=== PATIENT | male | born 1965 | race Caucasian/White ===

== ENCOUNTER → 2017-08-13 10:31 | Outpatient (CLI) | payer OTHER, SELFPAY ==
[2016-11-19 09:56] VITALS: BMI 33.7
--- NOTE | 2017-08-13 10:33 | STEWCON_ITS ---
Reason For Study: CAD, S/P Stent Stress Results Protocol: Tacho Protocol Maximum Predicted HR: 169 bpm Target HR: 144 bpm% Max imum Predicted HR: 91 % DurationHeart Rate Stage (mm:ss) (bpm) BPCom ment Baseline 54 112/74 Definity 0.6 ML Given; No Chest Pain Tacho Protocol Stage I 3:00 97 122/70No Chest Pain Tacho Protocol Stage II 3:00 12 5 138/72No Chest Pain; Mild Dyspnea Tacho Protocol Stage III 2:00 15 3 / No Chest Pain; Moderate Dyspnea Recovery 93 118/78 No Chest Pain Stress Duration: 8:00 mm:ss Maximum Stress HR: 153 bpmM ETS: 10 Baseline Echocardiogram Findings The estimated ejection fraction is 50 %. Stress Echo Wall motion Data Resting WMIntermediate WMStress WM Resting Wall Motion Wall Motion Stress Anterio-Basal: Hypokinetic. No regional wall motion Mid-Anterior : Hypokinetic. abnormalities noted. Anterior [place] : Hypokinetic. EKG Data The baseline ECG demonstrates normal sinus rhythm with at rate of _ beats per minute. The patient exercised according to the regular Tacho protocol for a total duration of 8:00. The maximum heart rate attained was 164 beats per minute. This was 97% of maximum predicted heart rate. The patient exercised into stage 3 of the Tacho protocol. During stress, there were no ST or T wave changes noted to suggest ischemia. No clinical angina was noted. No arrhythmias noted. Interpretation Summary The estimated ejection fraction is 50 %. Baseline Anterio-Basal: Hypokinetic Baseline Mid-Anterior : Hypokinetic Baseline Anterior [place] : Hypokinetic Normal adequate Tacho treadmill echocardiogram. Patient had baseline anteroapical hypokinesis which did not appreciably worsen during exercise. Negative for ischemia by EKG and echocardiographic criteria. No anginal symptoms noted. No arrhythmias noted. Below average exercise capacity for age. Appropriate blood pressure response to exercise. Final LVEF is 65%. Test terminated due to dyspnea. Ordering Physician: Colten Toth Referring Physician: Colten Toth Performed By: Maddy Quintanilla, SUREKHA, RVT
== END ==
PROVIDERS: Family Provider Family Medicine; PCP Family Medicine; Visit Provider Internal Medicine Cardiovascular Disease
DX: I25.118 Atherosclerotic heart disease of native coronary artery with other forms of angina pectoris (principal); I25.5 Ischemic cardiomyopathy; Z95.5 Presence of coronary angioplasty implant and graft
CPT/HCPCS: 93017; 93350; Q9957; A4216; C8928

== ENCOUNTER → 2017-09-12 11:42 | Outpatient (CLI) | payer OTHER, SELFPAY ==
[2016-11-19 09:56] VITALS: BMI 33.7
--- NOTE | 2017-09-12 11:42 | DT_ITS ---
This patient was seen during an EMR downtime September 08, 2017 - September 15, 2017. This patient may have a combination of paper and electronic documentation or all paper documentation. All documentation is viewable within the e-chart portion of [facility] for each patient visit.
[2017-09-13 06:11] LABS: AST(SGOT) 33 U/L (15-37); Alanine Aminotransfer ALT/SGPT 64 U/L (16-61); Alkaline Phosphatase 69 U/L (45-117); Bilirubin, Direct 0.18 mg/dL (0.00-0.30); Cholesterol 85 mg/dL (200); Globulin 2.9 g/dL (2.2-4.2); High Density Lipoprotein 27 mg/dL; Protein, Total 6.9 g/dL (6.4-8.2); Triglycerides 129 mg/dL; Very Low Density Lipoprotein 26 mg/dL (5-40)
== END ==
PROVIDERS: Nurse Practitioner Family; Family Provider Family Medicine; PCP Family Medicine; Visit Provider Family Medicine
DX: E78.5 Hyperlipidemia, unspecified (principal); E29.1 Testicular hypofunction; Z79.899 Other long term (current) drug therapy
CPT/HCPCS: 36415; 80061; 80076; 84403

== ENCOUNTER → 2017-11-21 16:31 | Outpatient (CLI) | payer OTHER, SELFPAY ==
[2016-11-19 09:56] VITALS: BMI 33.7
[2017-11-21 17:33] LABS: Absolute Lymphocyte Count 2.76 X10^3/ul (0.83-4.51); Absolute Neutrophil Count 3.1 X10^3/uL (2.0-7.7); Basophil# 0.06 X10^3/uL; Basophil% 0.8 % (0-1); Eosinophil# 0.84 X10^3/uL; Eosinophils% 11.4 % (0-5); Hematocrit 46.8 % (40-54); Lymphocyte # 2.76 X10^3/ul (4.0); Lymphocyte % 37.6 % (19-41); Mean Corp Hgb Conc 34.2 g/gl (32-36); Mean Corpuscular Volume 87.8 fL (80-94); Mean Platelet Vol. 11.1 fl (6.2-12.0); Monocyte# 0.53 X10^3/uL; Monocyte% 7.2 % (0-10); Neutrophil # 3.13 X10^3/uL (2.7-7.7); Neutrophil % 42.6 % (47-70); Platelet Count 178 K/mm3 (150-450); RBC Distribution Width CV 13.2 % (11.6-14.6); Red Blood Count 5.33 M/mm3 (4.6-6.2); White Blood Count 7.4 K/mm3 (4.4-11.0)
[2017-11-21 17:34] LABS: POSITIVE COUNT NO; POSITIVE DIFFERENTIAL NO; POSITIVE MORPHOLOGY NO
[2017-11-21 17:45] LABS: T4 Free Direct 0.98 ng/dL (0.76-1.46); Thyroid Stim Hormone (TSH) 1.72 uIU/mL (0.358-3.74)
[2017-11-21 19:08] LABS: Vitamin B12 738 pg/mL (211-911)
== END ==
PROVIDERS: Family Provider Family Medicine; PCP Family Medicine; Visit Provider Family Medicine
DX: R41.89 Other symptoms and signs involving cognitive functions and awareness (principal)
CPT/HCPCS: 36415; 82607; 84439; 84443; 85025

== ENCOUNTER 2018-02-24 08:47 | Emergency (ER) | payer OTHER, SELFPAY ==
[2016-11-19 09:56] VITALS: BMI 33.7
[2018-02-24 08:49] VITALS: BP 143/85; PULSE 90; RESP 12; TEMP 35.9; BMI 34.3
--- NOTE | 2018-02-24 09:03 | EKG12_ITS ---
Test Reason : NECKPAIN Blood Pressure : / mmHG Vent. Rate : 077 BPM Atrial Rate : 077 BPM P-R Int : 150 ms QRS Dur : 090 ms QT Int : 350 ms P-R-T Axes : 039 005 045 degrees QTc Int : 396 ms Normal sinus rhythm Septal infarct , age undetermined Abnormal ECG Confirmed by JENNI ESPINOSA, CALI ([id number]), technical writer and editor QUEENIE OZUNA ([id number]) on 02/27/2018 1:19:50 PM Referred By: REJI Confirmed By:CALI ARTEAGA MD
--- NOTE | 2018-02-24 09:12 | ED.DCSUM_ITS ---
- ER Visit Summary Date of Service: 02/24/18 Chief Complaint: Neck pain History of Present Illness: The patient is a 52 M who presents for gradually worsening left-sided neck pain. Patient began having left-sided neck pain 3 days ago, with gradual involvement of the left upper back. He is unable to move much secondary to pain. He tried Advil and BenGay without any relief. also used a massager on his back with brief relief. He is now having a headache since this morning and complaining of dry mouth since arrival in the emergency department. Patient denies any history of trauma. He was riding his bike this weekend and denies any injury. Patient cycles regularly and this was not a new activity for him. Denies any chiropractic manipulation. he denies chest pain, shortness of breath. No worsening of the pain with deep breathing. No fever, abdominal pain, nausea or vomiting. Patient has significant cardiac history, hypertension and hyperlipidemia. Patient is not a smoker. Physical Examination: Vital signs: afebrile, hemodynamically stable, no hypoxia on room air General: well nourished, well developed, in no distress, laying right lateral recumbent and holding very still Skin: warm, dry, no rash, no pallor HEENT: normocephalic and atraumatic; PERRL, EOMI, moist mucous membranes Cardiovascular: regular rate and rhythm without murmurs, no peripheral edema, 2+ pulses all distal extremities Neck and Back: No midline tenderness, deformities or step-offs. Tenderness to the paraspinal musculature of the left neck and thoracic back. No tenderness along the trapezius. No rash. Limited range of motion of the neck secondary to pain. Respiratory: No increased work of breathing, lungs are clear to auscultation bilaterally, no rales, rhonchi or wheezing Abdominal: Abdomen is soft, nontender with normoactive bowel sounds, no guarding or rebound, no masses MSK: Moves all extremities, no deformities, normal strength Neuro: Awake and alert, oriented ?4. No facial droop, sensation and motor function intact and symmetric Test Results: Abnormal Lab Results 02/24/18 02/24/18 09:15 09:15 WBC 10.3 RBC 5.74 Hgb 17.8 H Hct 53.1 MCV 92.5 MCH 31.0 MCHC 33.5 RDW 14.2 RDW Differential 47.8 H Plt Count 144 L MPV 9.9 Immature Gran % (Auto) 0.600 Neut % (Auto) 61.1 Lymph % (Auto) 21.1 Long % (Auto) 7.2 Eos % (Auto) 9.7 H Baso % (Auto) 0.3 Absolute Neuts (auto) 6.3 Absolute Lymphs (auto) 2.18 Total Counted Not Reportable Sodium 141 Potassium 4.2 Chloride 106 Carbon Dioxide 27.0 Anion Gap 8 BUN 13 Creatinine 1.14 Estim Creat Clear Calc 84.14 Est GFR (MDRD) Af Amer 87 Est GFR (MDRD) Non-Af 72 BUN/Creatinine Ratio 11.4 Glucose 100 Calcium 8.5 Troponin I 0.034 Clinical Impression(s) from Imaging Studies Chest X-Ray 02/24/18 09:27 IMPRESSION: 1. Subsegmental atelectasis in the right lung base and right middle lobe. 2. No other additional findings when compared to 01/15/2017. COMMENT: High-resolution CT chest will be more helpful for screening due to smoking history. Electronically Signed: Mark Anthony Bowen MD at 10:01 EST , Service support , Medications Given Discontinued Medications Ketorolac Tromethamine (Toradol) 30 mg IV X1 ONE Stop: 02/24/18 09:07 Last Admin: 02/24/18 09:48 Dose: 30 mg Orphenadrine Citrate (Norflex) 60 mg IV X1 ONE Stop: 02/24/18 09:07 Last Admin: 02/24/18 09:48 Dose: 60 mg Emergency Department Course and Treatment: Patient presents complaining of gradually worsening left-sided neck and upper back pain, with pain reproducible on palpation of the paraspinal musculature. Patient was given Toradol and Norflex for symptomatic relief. He does have a significant cardiac history, and because he is having left-sided symptoms, EKG and lab work was performed to rule out any cardiac involvement. Troponin was within normal limits. EKG showed a sinus rhythm with no ST changes, consistent with prior EKGs. Chest x-ray showed no infiltrates and no widened mediastinum. Possibility of dissection was considered, however patient's symptoms have been present for several days now, pain is reproducible with palpation, and he has had mild improvement with medication and massage. Thus it is highly unlikely this would be aortic/carotid or vertebral dissection and no further imaging was performed. Patient did mention during workup that he is having a decreased appetite for several days, and we discussed that he should follow-up with his primary care doctor about this if it continues. Patient's evaluation workup is most consistent with a cervical radiculopathy resulting in associated referred muscle pain. Patient was given a prescription for prednisone and flexeril. Patient also given prescription for ibuprofen to use for pain. He does state he is on pain medications for a low back injury and he will continue his pain medications as prescribed by his pain management doctor. Patient had some improvement of his discomfort with the medications in the emergency department. He was discharged home with a ride and given strict return precautions. Treatment Plan: [] Disposition: [] Impression: left cervical radiculopathy, cervical and thoracic muscle spasms This note was generated with [employer] dictation software. It may contain incorrect words, spelling, and punctuation that were not noted in review of the chart prior to signing ED Disposition - Plan for ED Patient: Disposition: Home or Assisted Living Chief Complaint: Other, Pain/Inj Instructions: ED Spasm Neck No Injury, ED Cervical Radiculopathy Prescriptions: RX: Ibuprofen 600 mg PO 4X/DAY PRN PRN #20 tab PRN Reason: Pain RX: Prednisone 10 mg PO UD #33 tab Cyclobenzaprine [Flexeril] 10 mg PO TID PRN #20 tab PRN Reason: Muscle Spasm Referrals: Oneal Parker MD [Primary Care Provider] - 1 Week if not improving Additional Instructions: Your evaluation today is most consistent with muscle spasms, likely due to an irritated nerve in your neck. You may use the prednisone taper to help with inflammation. The cyclobenzaprine is for muscle spasm. You may use the ibuprofen for pain as well. Please return to the emergency department if you develop any new or concerning symptoms, such as chest pain, shortness of breath, fever, abdominal pain, or any other change in symptoms that concerns you. Up with your family doctor if you continue to have neck pain.
[2018-02-24 09:15] VITALS: O2SAT 97
--- NOTE | 2018-02-24 09:27 | RAD_ITS ---
STUDY: X-RAY CHEST REASON FOR EXAM: Male, 52 years old. Chest pain x3 days. Neck and back pain. Smoker. TECHNIQUE: PA and lateral views. COMPARISON: 01/15/2017. FINDINGS: Subsegmental atelectases in the right lung base and right middle lobe. No confluent infiltrates. No suspicious pulmonary nodules. There is no demonstrated pleural abnormality. Normal size heart. Normal mediastinum and amy. Normal visualized pulmonary arteries. Normal visualized aortic arch and descending thoracic aorta. Normal visualized thoracic spine. Normal visualized ribs, clavicles, and shoulders. There is no demonstrated abnormality of the visualized soft tissue structures of the upper abdomen. RAD/Chest PA and Lateral IMPRESSION: 1. Subsegmental atelectasis in the right lung base and right middle lobe. 2. No other additional findings when compared to 01/15/2017. COMMENT: High-resolution CT chest will be more helpful for screening due to smoking history. Electronically Signed: Mark Anthony Bowen MD at 10:01 EST , Service support ,
[2018-02-24 09:34] LABS: Absolute Lymphocyte Count 2.18 X10^3/ul (0.83-4.51); Absolute Neutrophil Count 6.3 X10^3/uL (2.0-7.7); Basophil# 0.03 X10^3/uL; Basophil% 0.3 % (0-1); Eosinophils% 9.7 % (0-5); Hematocrit 53.1 % (40-54); Hemoglobin 17.8 g/dl (13.0-16.5); Lymphocyte # 2.18 X10^3/ul (4.0); Lymphocyte % 21.1 % (19-41); Mean Corp Hgb Conc 33.5 g/gl (32-36); Mean Corpuscular Volume 92.5 fL (80-94); Mean Platelet Vol. 9.9 fl (6.2-12.0); Monocyte# 0.74 X10^3/uL; Monocyte% 7.2 % (0-10); Neutrophil # 6.31 X10^3/uL (2.7-7.7); Neutrophil % 61.1 % (47-70); Platelet Count 144 K/mm3 (150-450); RBC Distribution Width CV 14.2 % (11.6-14.6); RBC Distribution Width SD 47.8 fl (35.1-43.9); Red Blood Count 5.74 M/mm3 (4.6-6.2); White Blood Count 10.3 K/mm3 (4.4-11.0)
[2018-02-24 09:39] LABS: POSITIVE COUNT NO; POSITIVE DIFFERENTIAL NO; POSITIVE MORPHOLOGY NO
[2018-02-24 09:47] LABS: Anion Gap 8 (5-15); BUN 13 mg/dL (7-18); BUN/Creat Ratio 11.4 RATIO (10-20); Calcium,Total 8.5 mg/dL (8.5-10.1); Chloride 106 mmol/L (98-107); Creatinine, Serum 1.14 mg/dL (0.70-1.30); EST Glomerular Filtration Rate 72 mL/min (>60); Est Glom Filt Rate - Afr Amer 87 mL/min (>60); Estimated Creatinine Clearance 84.14 ml/min; Glucose 100 mg/dL (74-106); Potassium 4.2 mmol/L (3.5-5.1); Sodium Level 141 mmol/L (136-145)
[2018-02-24] MEDS: Ketorolac 15 MG/ML Vial 30 MG IV (09:48)
[2018-02-24] MEDS: Orphenadrine 60 MG/2 ML Ampul IV (09:48)
--- NOTE | 2018-02-24 10:18 | ED.DEP ---
ED Disposition - Plan for ED Patient: Disposition: Home or Assisted Living Chief Complaint: Other, Pain/Inj Instructions: ED Spasm Neck No Injury, ED Cervical Radiculopathy Prescriptions: Ibuprofen 600 mg PO 4X/DAY PRN PRN #20 tab PRN Reason: Pain Prednisone 10 mg PO UD #33 tab Cyclobenzaprine [Flexeril] 10 mg PO TID PRN #20 tab PRN Reason: Muscle Spasm Referrals: Oneal Parker MD [Primary Care Provider] - 1 Week if not improving Additional Instructions: Your evaluation today is most consistent with muscle spasms, likely due to an irritated nerve in your neck. You may use the prednisone taper to help with inflammation. The cyclobenzaprine is for muscle spasm. You may use the ibuprofen for pain as well. Please return to the emergency department if you develop any new or concerning symptoms, such as chest pain, shortness of breath, fever, abdominal pain, or any other change in symptoms that concerns you. Up with your family doctor if you continue to have neck pain.
[2018-02-24 10:31] VITALS: BP 143/74; PULSE 90; RESP 20; O2SAT 96
== END 2018-02-24 10:32 | disposition home or self-care (01) ==
PROVIDERS: Emergency Provider Emergency Medicine; Family Provider Family Medicine; PCP Family Medicine
DX: M54.12 Radiculopathy, cervical region (principal); M62.838 Other muscle spasm; I10 Essential (primary) hypertension; E78.5 Hyperlipidemia, unspecified
CPT/HCPCS: 71046; 80048; 84484; 85025; 93005; 99284; A4216

== ENCOUNTER → 2018-03-27 11:13 | Outpatient (CLI) | payer OTHER, SELFPAY ==
[2016-11-19 09:56] VITALS: BMI 33.7
--- NOTE | 2018-03-27 11:25 | RAD_ITS ---
STUDY: X-RAY - CERVICAL SPINE REASON FOR EXAM: Male, 52 years old. Left-sided neck pain with radiation to the left arm. TECHNIQUE: 5 view(s) of the cervical spine were obtained including oblique views. COMPARISON: None FINDINGS: Normal anterior atlantoaxial articulation. Normal odontoid process. There is straightening of the normal cervical lordosis. There is multi-level endplate spondylosis. Normal disc space heights. Normal visualized intervertebral neuroforamina. There are atherosclerotic vascular calcifications of the carotid arteries. RAD/Cerv Spine 4 or 5 Views IMPRESSION: Straightening of the normal cervical lordosis. Multilevel spondylosis. Electronically Signed: Simón Wynn MD at 12:30 EST Tel [phone], Service support ,
== END ==
PROVIDERS: Family Provider Family Medicine; PCP Family Medicine; Referring Provider Chiropractor; Visit Provider Chiropractor
DX: M54.12 Radiculopathy, cervical region (principal)
CPT/HCPCS: 72050

== ENCOUNTER 2018-04-08 18:59 | Emergency (ER) | payer OTHER, SELFPAY ==
[2016-11-19 09:56] VITALS: BMI 33.7
[2018-04-08 19:00] VITALS: BP 174/98; PULSE 121; RESP 14; TEMP 36.4; O2SAT 100; BMI 29.1
--- NOTE | 2018-04-08 19:07 | EKG12_ITS ---
Test Reason : CP Blood Pressure : / mmHG Vent. Rate : 087 BPM Atrial Rate : 087 BPM P-R Int : 138 ms QRS Dur : 092 ms QT Int : 330 ms P-R-T Axes : 031 009 062 degrees QTc Int : 397 ms Normal sinus rhythm with sinus arrhythmia Septal infarct , age undetermined Abnormal ECG Confirmed by SHELL ESPINOSA, ELDON ([id number]), editorial specialist QUEENIE OZUNA ([id number]) on 04/10/2018 2:27:10 PM Referred By: BRET Confirmed By:ELDON GOFF MD
--- NOTE | 2018-04-08 19:12 | RAD_ITS ---
STUDY: X-RAY CHEST REASON FOR EXAM: Male, 52 years old. Chest pain. TECHNIQUE: Single AP portable view of the chest. COMPARISON: PA and lateral chest x-ray February 24, 2018. FINDINGS: The lungs are clear and expanded. There is no demonstrated pleural abnormality. Normal size heart. Normal mediastinum and amy. Normal visualized pulmonary arteries. Normal visualized aortic arch and descending thoracic aorta. There are stable multilevel degenerative changes of the visualized thoracic spine. Normal visualized ribs, clavicles, and shoulders. There is no demonstrated abnormality of the visualized soft tissue structures of the upper abdomen. RAD/Chest 1 View (Portable) IMPRESSION: No acute cardiopulmonary disease. Electronically Signed: Shady Zhu MD at 19:28 EST , Service support ,
[2018-04-08 19:39] LABS: Absolute Lymphocyte Count 2.93 X10^3/ul (0.83-4.51); Absolute Neutrophil Count 6.2 X10^3/uL (2.0-7.7); Basophil# 0.04 X10^3/uL; Basophil% 0.4 % (0-1); Eosinophil# 0.53 X10^3/uL; Eosinophils% 5.1 % (0-5); Hematocrit 52.5 % (40-54); Lymphocyte # 2.93 X10^3/ul (4.0); Lymphocyte % 28.1 % (19-41); Mean Corp Hgb Conc 35.4 g/gl (32-36); Mean Corpuscular Hgb 30.7 pg (27.0-32.0); Mean Corpuscular Volume 86.8 fL (80-94); Mean Platelet Vol. 9.9 fl (6.2-12.0); Monocyte# 0.69 X10^3/uL; Monocyte% 6.6 % (0-10); Neutrophil # 6.17 X10^3/uL (2.7-7.7); Neutrophil % 59.1 % (47-70); Platelet Count 205 K/mm3 (150-450); RBC Distribution Width CV 13.5 % (11.6-14.6); RBC Distribution Width SD 43.1 fl (35.1-43.9); Red Blood Count 6.05 M/mm3 (4.6-6.2); White Blood Count 10.4 K/mm3 (4.4-11.0)
[2018-04-08 19:40] LABS: Hemoglobin 18.6 g/dl (13.0-16.5); POSITIVE COUNT NO; POSITIVE DIFFERENTIAL NO; POSITIVE MORPHOLOGY NO
--- NOTE | 2018-04-08 19:42 | ED.RN ---
DR QUEEN NOTIFIED OF HGB RESULTS
[2018-04-08 19:49] LABS: Anion Gap 9 (5-15); BUN 12 mg/dL (7-18); BUN/Creat Ratio 10.9 RATIO (10-20); Chloride 104 mmol/L (98-107); EST Glomerular Filtration Rate 75 mL/min (>60); Est Glom Filt Rate - Afr Amer 91 mL/min (>60); Glucose 115 mg/dL (74-106); Potassium 3.7 mmol/L (3.5-5.1); Sodium Level 140 mmol/L (136-145)
[2018-04-08 20:55] VITALS: BP 154/109; PULSE 88; RESP 29; O2SAT 94
[2018-04-08 21:45] VITALS: BP 149/98; PULSE 81; RESP 18; O2SAT 95
--- NOTE | 2018-04-08 21:54 | ED.DCSUM_ITS ---
- ER Visit Summary Date of Service: 04/08/18 Chief Complaint: Palpitations History of Present Illness: The patient is a 52 M he started having palpitations around 3:00 this afternoon. He denies chest pain. He states his Fitbit watch showed him a heart rate ranging between 90-120. He has a history of prior coronary disease and MO. Following his cardiac intervention he reported did have an episode of either A. fib or SVT. Physical Examination: Vital signs in triage include a blood pressure 174/98 with a heart rate of 121. Head and neck examination unremarkable. Heart is regular rate and rhythm at the time of my exam. Lung sounds are clear. Abdomen is soft nontender. Lower external examination was no calf tenderness or edema. Test Results: Portable chest x-ray is unremarkable. EKG is sinus 87 with no sign of acute ischemia. CBC reveals a normal white count with a hemoglobin concentrated at 18.6. Chemistry studies unremarkable. Troponin 0.065. On recent admission troponin baseline was 0.08. 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 We did reveal his prior cardiac workup. I spoke with Dr. Holt, on-call for Dr. Toth. Patient will be given a 48-hour Holter monitor will follow up in the cardiology office. Treatment Plan: [] Disposition: Discharge Impression: Palpitations This note was generated with [employer] dictation software. It may contain incorrect words, spelling, and punctuation that were not noted in review of the chart prior to signing ED Disposition - Plan for ED Patient: Disposition: Home or Assisted Living Chief Complaint: Chest Pain Instructions: ED Palpitations Referrals: Colten Toth MD [STAFF PHYSICIAN] - As soon as possible
[2018-04-08 22:03] VITALS: BP 138/86; PULSE 77; RESP 14; O2SAT 98
== END 2018-04-08 22:07 | disposition home or self-care (01) ==
PROVIDERS: Emergency Provider Emergency Medicine; Family Provider Family Medicine; PCP Family Medicine
DX: R00.2 Palpitations (principal); I25.10 Atherosclerotic heart disease of native coronary artery without angina pectoris; I25.2 Old myocardial infarction; Z87.891 Personal history of nicotine dependence
CPT/HCPCS: 71045; 80048; 84484; 85025; 93005; 99284; A4216

== ENCOUNTER → 2018-04-08 21:48 | Outpatient (CLI) | payer OTHER, SELFPAY ==
[2016-11-19 09:56] VITALS: BMI 33.7
[2018-04-08 19:00] VITALS: BMI 29.1
== END ==
PROVIDERS: Family Provider Family Medicine; PCP Family Medicine; Referring Provider Internal Medicine Cardiovascular Disease; Visit Provider Internal Medicine Cardiovascular Disease
DX: R00.2 Palpitations (principal)
CPT/HCPCS: 93225; 93226

== ENCOUNTER → 2018-06-03 12:33 | Outpatient (CLI) | payer OTHER, SELFPAY ==
[2016-11-19 09:56] VITALS: BMI 33.7
[2018-04-20 09:51] VITALS: BMI 34.3
--- NOTE | 2018-06-03 12:36 | STEWCON_ITS ---
Reason For Study: CAD/ASHD Stress Results Protocol: Tacho Protocol Maximum Predicted HR: 169 bpm Target HR: 144 bpm % Maximum Predicted HR: 92 % DurationHeart Rate Stage (mm:ss) (bpm) BP Comment BASELINE 54 148/94 1 CC DEFINITY STAGE 1 3:00 107 180/98 STAGE 2 3:00 133 220/106SLIGHT SOB STAGE 3 1:00 155 / 1CC DEFINITY RECOVERY 83 150/82 2CC DEFINITY Stress Duration: 7:00 mm:ss Maximum Stress HR: 155 bpm Baseline Echocardiogram Findings The estimated ejection fraction is 50 %. Stress Echo Wall motion Data Resting WM Intermediate WM Stress WM Resting Wall Motion Wall Motion Stress Mid-Anterior : Mildly No additional regional wall hypokinetic. motion abnormalities over Mid-anteroseptal : Mildly baseline. hypokinetic. EKG Data The baseline ECG displays normal sinus rhythm. The patient exercised according to the regular Tacho protocol for a total duration of 7:00. The maximum heart rate attained was 166 beats per minute. This was 98% of maximum predicted heart rate. The patient exercised into stage 3 of the Tacho protocol. During stress, there were no ST or T wave changes noted to suggest ischemia. No clinical angina was noted. Doppler Measurements & Calculations TR max kenia: 261.8 cm/sec TR max P.4 mmHg Interpretation Summary The estimated ejection fraction is 50 %. Normal, adequate, treadmill echocardiogram. Negative for ischemia by EKG and echocardiographic criteria. No anginal symptoms noted. No arrhythmias noted. Hypertensive blood pressure response to exercise. Below average exercise capacity for age. Patient had baseline anteroseptal hypokinesis from previous known anterior wall myocardial infarction. All other regions contracted normally at peak exercise. Final LVEF of 65%. No complications. Decreased sensitivity due to poor echo windows requiring Definity enhancement. The study was technically difficult. Contrast injection was performed. Ordering Physician: Colten Toth MD Referring Physician: Colten Toth Performed By: Marina Sue RDCS
== END ==
PROVIDERS: Family Provider Family Medicine; PCP Family Medicine; Referring Provider Internal Medicine Cardiovascular Disease; Visit Provider Internal Medicine Cardiovascular Disease
DX: I25.10 Atherosclerotic heart disease of native coronary artery without angina pectoris (principal)
CPT/HCPCS: 93017; 93350; Q9957; A4216; C8928

== ENCOUNTER → 2018-10-09 15:23 | Outpatient (CLI) | payer OTHER, SELFPAY ==
[2016-11-19 09:56] VITALS: BMI 33.7
[2018-04-20 09:51] VITALS: BMI 34.3
[2018-10-09 17:09] LABS: Absolute Lymphocyte Count 2.38 X10^3/ul (0.83-4.51); Absolute Neutrophil Count 6.3 X10^3/uL (2.0-7.7); Basophil# 0.04 X10^3/uL; Basophil% 0.4 % (0-1); Eosinophil# 0.38 X10^3/uL; Eosinophils% 3.9 % (0-5); Hematocrit 53.7 % (40-54); Lymphocyte # 2.38 X10^3/ul (4.0); Lymphocyte % 24.3 % (19-41); Mean Corp Hgb Conc 34.6 g/gl (32-36); Mean Corpuscular Hgb 29.8 pg (27.0-32.0); Mean Corpuscular Volume 85.9 fL (80-94); Mean Platelet Vol. 11.6 fl (6.2-12.0); Monocyte# 0.66 X10^3/uL; Monocyte% 6.7 % (0-10); Neutrophil # 6.29 X10^3/uL (2.7-7.7); Neutrophil % 64.4 % (47-70); Platelet Count 217 K/mm3 (150-450); RBC Distribution Width CV 13.7 % (11.6-14.6); RBC Distribution Width SD 43.3 fl (35.1-43.9); Red Blood Count 6.25 M/mm3 (4.6-6.2); White Blood Count 9.8 K/mm3 (4.4-11.0)
[2018-10-09 17:17] LABS: Hemoglobin 18.6 g/dl (13.0-16.5); POSITIVE COUNT NO; POSITIVE DIFFERENTIAL NO; POSITIVE MORPHOLOGY NO
[2018-10-09 17:31] LABS: Anion Gap 5 (5-15); BUN 15 mg/dL (7-18); BUN/Creat Ratio 13.8 RATIO (10-20); Calcium,Total 9.2 mg/dL (8.5-10.1); Chloride 106 mmol/L (98-107); Creatinine, Serum 1.09 mg/dL (0.70-1.30); EST Glomerular Filtration Rate 75 mL/min (>60); Est Glom Filt Rate - Afr Amer 91 mL/min (>60); Follicle Stimulating Hormone < 0.2 mIU/mL; Glucose 96 mg/dL (74-106); Luteinizing Hormone < 0.2 mIU/mL; PSA,Total - Annual Screen 1.23 ng/mL (0.00-4.00); Potassium 3.9 mmol/L (3.5-5.1); Sodium Level 137 mmol/L (136-145); Thyroid Stim Hormone (TSH) 1.16 uIU/mL (0.358-3.74)
== END ==
PROVIDERS: Family Provider Family Medicine; PCP Family Medicine; Visit Provider Family Medicine
DX: E29.1 Testicular hypofunction (principal); I48.91 Unspecified atrial fibrillation
CPT/HCPCS: 36415; 80048; 83001; 83002; 84153; 84403; 84443; 85025; G0103

== ENCOUNTER → 2018-11-09 14:46 | Outpatient (CLI) | payer OTHER, SELFPAY ==
[2016-11-19 09:56] VITALS: BMI 33.7
[2018-10-26 15:08] VITALS: BMI 33.9
--- NOTE | 2018-11-09 14:50 | ECHOCS_ITS ---
Reason For Study: Chest Pain Procedure This was a 2D Doppler, Color Flow transthoracic echocardiogram. Contrast injection was performed. Exam performed in department. Left Ventricle Mild concentric left ventricular hypertrophy. Mildly dilated left ventricle. The estimated ejection fraction is 55 %. Stage 1 diastolic dysfunction. Mid-anteroseptal : Mildly hypokinetic. Anterior [place] : Mildly hypokinetic. Inferior [place] : Mildly hypokinetic. Right Ventricle Normal size and thickness. Normal systolic function. Atria Normal left atrium. Normal right atrium. Normal atrial septum. Bubble contrast study negative for right to left interatrial shunt. Mitral Valve The mitral valve is structurally normal. No prolapse or stenosis seen. Trivial mitral valve insufficiency. Tricuspid Valve Normal tricuspid valve. Trivial tricuspid valve insufficiency. Right ventricular systolic pressure estimated to be 27 mmHg. Aortic Valve Trisinus/trileaflet aortic valve. Pulmonic Valve Normal pulmonic valve. Great Vessels Normal aortic root. Normal arch. Normal inferior vena cava. Inferior vena cava collapse with sniff. Pericardium/Pleural No pericardial effusion. Medication Performed a rapid injection of agitated mix of 9 cc saline and 1cc air to assess for atrial septal defect. Diluted definity 4ml given slow IV push to enhance endocardial definition. MMode/2D Measurements & Calculations LVIDd: 5.3 cm IVSd: 1.4 cm Ao root diam: 3.2 cm LVIDs: 4.0 cm LVPWd: 1.3 cm FS: 25.6 % LAV(MOD-bp): 53.5 ml LVAd ap4: 34.4 cm2 SV(MOD-sp4): 61.4 ml LAV(MOD-bp) Indexed: 22.9 ml/m2 EDV(MOD-sp4): 124.7 ml LAV(MOD-sp2): 55.5 ml EDV(sp4-el): 127.9 ml LAV(MOD-sp4): 50.8 ml LVAs ap4: 23.8 cm2 ESV(MOD-sp4): 63.3 ml ESV(sp4-el): 65.0 ml EF(MOD-sp4): 49.2 % EF(sp4-el): 49.2 % SV(sp4-el): 62.9 ml LA A4 area: 18.0 cm2 LA dimension(2D): 3.8 cm RA A4 area: 13.4 cm2 Doppler Measurements & Calculations MV E max singh: 59.9 cm/sec Lat Peak E' Singh: 5.3 cm/sec Med Peak E' Singh: 5.3 cm/sec MV A max singh: 85.7 cm/sec E/E' lat: 11.3 E/E' med: 11.3 MV E/A: 0.70 Ao V2 max: 134.8 cm/sec LV V1 max: 104.8 cm/sec TR max singh: 230.7 cm/sec Ao max P.3 mmHg LV V1 max P.4 mmHg TR max P.3 mmHg Ao V2 mean: 94.4 cm/sec Ao mean P.9 mmHg Ao V2 VTI: 25.9 cm Interpretation Summary Mild concentric left ventricular hypertrophy. The estimated ejection fraction is 55 %. Stage 1 diastolic dysfunction. Bubble contrast study negative for right to left interatrial shunt. Trivial mitral valve insufficiency. Trivial tricuspid valve insufficiency. Right ventricular systolic pressure estimated to be 27 mmHg. Compared to echo report dated 03/12/2017, no appreciable changes noted. The study was technically difficult. Contrast injection was performed. Ordering Physician: Colten Toth Referring Physician: Oneal Parker Performed By: Maddy Quintanilla, SUREKHA, RVT
== END ==
PROVIDERS: Family Provider Family Medicine; PCP Family Medicine; Referring Provider Internal Medicine Cardiovascular Disease; Visit Provider Internal Medicine Cardiovascular Disease
DX: R07.9 Chest pain, unspecified (principal); I25.118 Atherosclerotic heart disease of native coronary artery with other forms of angina pectoris; E78.5 Hyperlipidemia, unspecified; I25.5 Ischemic cardiomyopathy; Z95.5 Presence of coronary angioplasty implant and graft
CPT/HCPCS: 93306; Q9957; A4216; C8929

== ENCOUNTER → 2018-11-26 16:10 | Outpatient (CLI) | payer OTHER, SELFPAY ==
[2016-11-19 09:56] VITALS: BMI 33.7
[2018-10-26 15:08] VITALS: BMI 33.9
[2018-11-26 17:14] LABS: Absolute Lymphocyte Count 2.38 X10^3/uL (0.83-4.51); Absolute Neutrophil Count 5.2 X10^3/uL (2.0-7.7); Basophil# 0.06 X10^3/uL; Basophil% 0.7 % (0-1); Eosinophil# 0.31 X10^3/uL; Eosinophils% 3.6 % (0-5); Hematocrit 51.6 % (40-54); Hemoglobin 17.5 g/dL (13.0-16.5); Lymphocyte # 2.38 X10^3/ul (4.0); Lymphocyte % 27.4 % (19-41); Mean Corp Hgb Conc 33.9 g/dL (32-36); Mean Corpuscular Hgb 30.2 pg (27.0-32.0); Mean Platelet Vol. 10.5 fl (6.2-12.0); Monocyte# 0.63 X10^3/uL; Monocyte% 7.2 % (0-10); NRBC Flagged by Analyzer 0 % (0-5); Neutrophil # 5.24 X10^3/uL (2.7-7.7); Neutrophil % 60.3 % (47-70); Platelet Count 184 K/mm3 (150-450); RBC Distribution Width SD 42.2 fl (35.1-43.9); White Blood Count 8.7 K/mm3 (4.4-11.0)
== END ==
PROVIDERS: Family Provider Family Medicine; PCP Family Medicine; Visit Provider Family Medicine
DX: D75.1 Secondary polycythemia (principal); E29.1 Testicular hypofunction
CPT/HCPCS: 36415; 84403; 85025

== ENCOUNTER → 2019-02-12 12:13 | Outpatient (CLI) | payer OTHER, SELFPAY ==
[2016-11-19 09:56] VITALS: BMI 33.7
[2019-02-02 15:47] VITALS: BMI 33.9
--- NOTE | 2019-02-12 13:03 | CDU_ITS ---
Reason For Study: VERTIGO Rt. Velocities/BP Lt. Velocities/BP Prox CCA 73.8/19.0 cm/sec. Prox CCA 106.3/30.2 cm/sec. Mid CCA 80.3/24.3 cm/sec. Mid CCA 86.7/27.7 cm/sec. Dist CCA 79.0/24.3 cm/sec. Dist CCA 83.0/29.0 cm/sec. Prox ICA 48.4/18.1 cm/sec. Prox ICA 50.6/19.9 cm/sec. Mid ICA 99.4/15.8 cm/sec. Mid ICA 44.5/22.3 cm/sec. Dist ICA 83.4/36.7 cm/sec. Dist ICA 65.6/29.0 cm/sec. Rt. ICA/CCA = 99.4/80.3=1.2. Lt. ICA/CCA = 65.6/86.7=0.8. Prox ECA 94.7/12.5 cm/sec. Prox ECA 86.7/13.0 cm/sec. Rt. Vert. 40.2/14.6 cm/sec. Lt. Vert. 49.3/19.7 cm/sec. Right Extracranial There is intimal thickening but no significant atherosclerotic plaque noted in the right common carotid artery. There is intimal thickening but no significant atherosclerotic plaque noted in the right internal carotid artery. There is heterogeneous, irregular atherosclerotic plaque noted in the right external carotid artery. Antegrade flow is noted in the right vertebral artery. There is heterogeneous, irregular atherosclerotic plaque noted in the right bulb. Left Extracranial There is no significant atherosclerotic plaque noted in the left common carotid artery. There is heterogeneous, irregular atherosclerotic plaque noted in the left internal carotid artery. There is no significant atherosclerotic plaque noted in the left external carotid artery. Antegrade flow is noted in the left vertebral artery. There is heterogeneous, irregular atherosclerotic plaque noted in the left bulb. Procedure Carotid Duplex [id number]. The exam was diagnostic. Exam performed in department. Interpretation Summary Mild (<50%) stenosis right extracranial internal carotid. Mild (<50%) stenosis left extracranial internal carotid. Flow within the vertebral arteries is antegrade bilaterally. Ordering Physician: Colten Toth Referring Physician: Oneal Parker Performed By: Nguyen Davis RDCS, RVT
[2019-02-12 13:48] LABS: Absolute Lymphocyte Count 2.61 X10^3/uL (0.83-4.51); Basophil# 0.08 X10^3/uL; Basophil% 0.8 % (0-1); Eosinophil# 0.53 X10^3/uL; Eosinophils% 5.3 % (0-5); Hematocrit 46.9 % (40-54); Hemoglobin 16.3 g/dL (13.0-16.5); Lymphocyte # 2.61 X10^3/ul (4.0); Mean Corp Hgb Conc 34.8 g/dL (32-36); Mean Corpuscular Hgb 30.5 pg (27.0-32.0); Mean Corpuscular Volume 87.7 fL (80-94); Mean Platelet Vol. 10.1 fl (6.2-12.0); Monocyte# 0.73 X10^3/uL; Monocyte% 7.3 % (0-10); NRBC Flagged by Analyzer 0 % (0-5); Neutrophil # 6.02 X10^3/uL (2.7-7.7); Neutrophil % 59.9 % (47-70); Platelet Count 232 K/mm3 (150-450); RBC Distribution Width CV 13.1 % (11.6-14.6); RBC Distribution Width SD 41.7 fl (35.1-43.9); Red Blood Count 5.35 M/mm3 (4.6-6.2)
[2019-02-12 14:19] LABS: Anion Gap 8 (5-15); BUN 14 mg/dL (7-18); BUN/Creat Ratio 11.3 RATIO (10-20); Calcium,Total 9.4 mg/dL (8.5-10.1); Chloride 106 mmol/L (98-107); Creatinine, Serum 1.24 mg/dL (0.70-1.30); EST Glomerular Filtration Rate 65 mL/min (>60); Est Glom Filt Rate - Afr Amer 79 mL/min (>60); Glucose 105 mg/dL (74-106); Potassium 4.1 mmol/L (3.5-5.1); Sodium Level 142 mmol/L (136-145)
[2019-02-12 15:40] LABS: Prothrombin Time (Protime)PT. 12.6 SECONDS (11.7-14.9)
== END ==
PROVIDERS: Family Provider Family Medicine; PCP Family Medicine; Referring Provider Internal Medicine Cardiovascular Disease; Visit Provider Internal Medicine Cardiovascular Disease
DX: R51 Headache (principal); R42 Dizziness and giddiness; I25.118 Atherosclerotic heart disease of native coronary artery with other forms of angina pectoris
CPT/HCPCS: 36415; 80048; 85025; 85610; 93880

== ENCOUNTER 2019-02-18 06:43 | Day surgery (SDC) | payer OTHER, SELFPAY ==
[2016-11-19 09:56] VITALS: BMI 33.7
[2019-02-02 15:47] VITALS: BMI 33.9
--- NOTE | 2019-02-12 12:20 | RAD_ITS ---
STUDY: X-RAY CHEST REASON FOR EXAM: Male, 53 years old. Chest pain, stent TECHNIQUE: PA and lateral views of the chest. COMPARISON: April 08, 2018 chest x-ray FINDINGS: The lungs are clear and expanded. There is no demonstrated pleural abnormality. Normal size heart. Normal mediastinum and amy. Normal visualized pulmonary arteries. Normal visualized aortic arch and descending thoracic aorta. There are diffuse degenerative changes of the visualized thoracic spine. Normal visualized ribs, clavicles, and shoulders. There is no demonstrated abnormality of the visualized soft tissue structures of the upper abdomen. RAD/Chest PA and Lateral IMPRESSION: Degenerative changes, as described above. No demonstrated acute cardiopulmonary process. Electronically Signed: Jenni Kovacs MD at 17:18 EST Tel , Service support ,
[2019-02-18] VITALS (21 sets, daily range): BP systolic 118–188; BP diastolic 64–107; PULSE 67–100; RESP 12–20; TEMP 36.6–36.8; O2SAT 90–98; BMI 34.2
[2019-02-18 09:20] LABS: ACT Activated Clotting Time 180 sec (74-137)
--- NOTE | 2019-02-18 09:34 | CL.I_ITS ---
Patient Name: TOMMY FLOR Study Date: 02/18/2019 Performing: Colten Toth MD Ht: 72.05 inches 183 cm : 1965 Wt: 249.12 lbs 113 kg Age: 53 Gender: male BSA: 2.34 Amended PROCEDURE(S) PERFORMED CP09-GNB/COR/LV UJ67-VKG W OR WO PTCA, SINGLE CORONARY ARTERY CLINICAL PROFILE AND CO-MORBIDITIES Indications: New Onset Angina <= 2 months, Worsening Angina, Stable Known CAD, LV Dysfunction Heart Failure: NYHA Class: 1, Newly Diagnosed: No, Heart Failure Type: Systolic Stress/Imaging Date: 06/03/2018 Stress Echocardiogram: Negative Angina Classification Anginal Classification w/in 2 Weeks: CCS IV Comorbidities/Risk Factors: Hypertension Dyslipidemia Prior PCI CONCLUSIONS Segmented LV systolic dysfunction- Moderate Successful PTCA/JANKI MID LAD with a 3.0 x 24 Promus Synergy overlapping previously placed stents, post dilated througout with a 3.0 x 12 NC balloon; 75%-->0%, no dissection. Pt had similar CP during sten t deployment, but of less intensity as he was having at home. Noelle wire technique needed down LAD i n order to pass stents and NC balloons. No encroachment of ostium of DIAG#1. Frailty score: Vulnera ble RECOMMENDATIONS Referred for immediate PCI Highly recommend quitting all tobacco products Follow up with primary third rail installer Risk factor modification ASA Indefinitley Plavix for at least 12 months Routine post interventional care Refer for Outpatient Cardiac Rehab Manual sheath removal per protocol Follow up with Dr. Toth Successful Mynx Control closure of RFA. DESCRIPTION OF PROCEDURE The patient arrived to the procedure lab. The risks and benefits of the procedure as well as a full d escription of our services here and lack of surgical backup were fully explained to the patient and/o r their significant other prior to the catheterization. The Timeout was completed, verifying the daniel ect patient and procedure. The patient's procedural site was prepped and draped in the usual fashion. Local anesthetic was given subcutaneously to right groin region with Lidocaine 2%. Using a modified Seldinger technique, arterial access was obtained via the right femoral artery, a 4Fr sheath was inse rted. Left Coronary Artery selective angiography was performed in multiple views using a 4 Fr. JL5 c atheter. Right Coronary Artery selective angiography was then performed in multiple views using a 4 F r. 3DRC catheter. Left Ventriculography was performed in BEYER projection using a 4 Fr. Pigtail cathete r. LV to AO pullback pressures were then recordedThe images were reviewed and options discussed. A decision was then made to proceed with an Intervention, IVUS or other adjunct procedure. Arterial sheath was exchanged for a 6 Fr Sheath. EBU 3.75 Guide catheter was inserted and engaged into the LCA. BMW (1) Guide wire was advanced to the LAD. BMW (2) Guide wire was advanced to the 1st Diagonal. Emerge 2 x 12 Balloon catheter was advanced across lesion in the LAD, mid. PTCA balloon in flated at 8 atms for 15 secs. PTCA balloon inflated at 8 atms for 8 secs. Angiogram performed post ba lloon dilatation. 3.0 x 24 Synergy Drug Eluting stent was inserted. Drug Eluting stent was removed in tact, failed to cross lesion 3 x 8 NC Emerge Balloon catheter was advanced across lesion in the LAD, mid. PTCA balloon inflated at 12 atms for 9 secs. PTCA balloon inflated at 12 atms for 8 secs. 3.0 x 24 Synergy Drug Eluting stent was advanced across the lesion in the LAD, mid. Drug Eluting stent was removed intact, failed to cross lesion BMW (2) Guide wire was repositioned to the LAD 3.0 x 24 Synerg y Drug Eluting stent was advanced across the lesion in the LAD, mid. Angiogram performed pre stent deployment. Angiogram performed post stent deployment. BMW (2) Guide wire was inserted as a noelle wire 3.0 x 12 NC Emerge Balloon catheter was inserted post stent. The arterial sheath was pu lled and a Mynx closure device was deployed for hemostasis CORONARY ANGIOGRAPHY DOMINANCE: Right Dominant LEFT HEART ASSESSMENT Left Ventricular Ejection Fraction: by LV Gram 45 % Depressed Left Ventricular systolic function LVEDP: 5 mmHg Normal Left Ventricular End Diastolic Pressure Anterior Hypokinesis - Moderate LEFT MAIN: Angiographically normal LEFT ANTERIOR DESCENDING ARTERY: PROX LAD: Previously placed stent is patent MID LAD: Previously placed stent is patent, 75 % Stenosis DIAGONAL 2: Ostial - 50 % Stenosis CIRCUMFLEX ARTERY: Mild luminal irregularities less than 30% OM 1: Ostial - Moderate luminal irregularities up to 50% RIGHT CORONARY ARTERY: MID RCA: Moderate luminal irregularities up to 50% DISTAL RCA: Mild luminal irregularities less than 30% INTERVENTION INFORMATION LESION SITE: LAD (Mid) Lesion Complexity: High/C, lesion at bifurcation: No, thrombus present: No, lesion length: 24 mm, cul prit lesion: Yes Pre Stenosis: 75 % Pre intervention TORIN flow: 3 Post Stenosis: 0 % Post intervention TORIN flow: 3 Lesion Devices: Mina .014 BMW [place] Straight 190cm Medtronic 6 Fr EBU3.75 100cm Guide Catheter Mina .014 BMW [place] Straight 190cm Gaston Sci EMERGE MR 2.00x12 BALLOON Gaston Sci Synergy MR JANKI 3.00x24 Gaston Sci NC EMERGE MR 3.00x08 BALLOON Gaston Sci NC EMERGE MR 3.00x12 BALLOON COMPLICATIONS No Complications PROCEDURE MEDICATIONS Versed 1 mg IV Fentanyl 25 mcg IV Oxygen: 2 L/min via nasal cannula Baby Aspirin (81mg) 1 Tabs PO @ 02/18/2019 08:00:27 Heparin 6000 unit(s) IV 02/18/2019 08:39:38 Nitro 200 mcg IC 02/18/2019 08:41:13 Plavix 75 mg PO 02/18/2019 08:00:16 IV Bolus: .9 NaCl 500 ml total 02/18/2019 09:04:06 IV Fluids: .9 NaCl increased to W/O ml/hr 02/18/2019 08:41:02 IV Fluids: .9 NaCl decreased to 150 ml/hr 02/18/2019 09:04:13 SUMMARY OF HEMODYNAMIC DATA Time AIR REST ECG 07:21:15 AO 130/87 (104) SA 08:25:52 LV 144/-21, 4 08:33:46 LV 145/-23, 4 08:33:52 LVp 143/-27, 2 08:33:57 AOp 128/79 (98) 08:34:02 RM AIR REST 09:25:29 Signed By Colten Toth MD On 03/23/2019 12:51:45 PM Signed By Colten Toth MD On 02/18/2019 09:34:08 Colten Toth MD
[2019-02-18] MEDS: 0.9% Normal Saline 1,000 ML 150 ML IV (11:08)
[2019-02-18] MEDS: diazePAM 5 MG Tablet PO (11:09)
--- NOTE | 2019-02-18 13:21 | PCM.HP.BLA ---
Problem List (1) Chest pain Status: Acute (2) Supraventricular tachycardia Status: Chronic (3) History of coronary artery stent placement Status: Chronic Comment: 11/19/2016: [id number] LAD w/ 3.0 x 12 mm Promus Synergy JANKI and JANKI-Mid LAD 3.0 x 12 mm Promus Synergy and POBA-D2. 02/18/19:Segmented LV systolic dysfunction- Moderate Successful PTCA/JANKI MID LAD with a 3.0 x 24 Promus Synergy overlapping previously placed stents, post dilated througout with a 3.0 x 12 NC balloon; 75%-->0%, no dissection. Pt had similar CP during stent deployment, but of less intensity as he was having at home. Kevin wire technique needed down LAD in order to pass stents and NC balloons. No encroachment of ostium of DIAG#1. (4) Atherosclerotic heart disease of [place] coronary artery with other forms of angina pectoris Status: Chronic Comment: FSB-ATX-Ldes LAD w/ 3.0 x 12 mm Promus Synergy JANKI and JANKI-Mid LAD 3.0 x 12 mm Promus Synergy and POBA-D2 11/19/2016 (5) Dyslipidemia Status: Chronic (6) Ischemic cardiomyopathy Status: Resolved History and Physical Date of Admission: 02/18/19 [place] [address] OFFICE VISIT Date of Service: 02/02/19 MR#: [id number] Acct: [id number] Name: TOMMY FLOR Rep #: [id number] : 1965 Provider: Colten Toth MD Age/Sex: 53/M Location: [facility] Status: Signed HPI HPI History of Present Illness Details: Details: HPI Chief Complaint: Routine f/u coronary artery disease Details: TOMMY FLOR, is a 53 M who presents to the office today for a cardiovascular follow-up. He does have a history of coronary artery disease with an acute anterior wall myocardial infarction in November 2016. He underwent angioplasty and stenting of his LAD, ans diagonal #2. Ejection fraction at that time was noted to be around 40% and he was placed on an intra-aortic balloon pump. His left circumflex and right coronary arteries had minimal obstructive disease. Ejection fraction had improved in March 2017 to 50-55%. Patient completed cardiac rehab and is now here in follow-up. Initially he had discontinued his beta-anika due to fatigue and depression, and discontinued his Lipitor out of concern for his memory issues. Patient then was somewhat depressed and started Lyrica and when these did not improve his overall symptoms he discontinued exercising altogether. He is in the process of declaring bankruptcy due to his missed time at work and financial challenges. Patient recently resumed exercising, and reports that his mental and physical health have markedly improved. The patient then developed palpitations precipitating a visit to the emergency room around April 2018. At that time he underwent a 48-hour Holter monitor which demonstrated normal sinus rhythm and sinus tachycardia with rare PACs and PVCs. Patient restart his Toprol-XL 25 mg p.o. daily, and his symptoms have resolved. He is now back on his Lipitor and exercising without any difficulty with minimal side effect. Patient underwent repeat stress testing on 06/03/2018 which showed no overt ischemia over and above his baseline anterior hypokinesis as a result of his previous myocardial infarction. No repeat catheterization was performed or recommended. He is now here in follow-up per Patient is under a significant amount of stress, as his company has declared bankruptcy recently. Patient continues to complain of occasional substernal chest pain although it is better than her last visit. He did not have any chest pain during his stress test either. In addition he complains of very difficult time sleeping at night mostly due to his back pain and status post 2 back surgeries. He wakes up about 15 times per night, and it is rare he can get more than 2 hours of sleep consecutively. He has been tested for sleep apnea in the past which is been negative. He has reduced his metoprolol to 12.5 mg p.o. twice daily. Patient is completely exhausted by the end of his workday. He reports that his exercise capacity has significantly gone down since before his myocardial infarction although it is remained stable over the last couple of years. His most recent echocardiogram was performed on 03/13/2017 which showed an EF around 50 to 55%, which was an improvement over his baseline of 40%, normal RVSP of 25 mmHg. In our office today's blood pressure is 124/70, pulse is 68 and regular. Physical exam is as below. His lipids as of 09/12/17 show an LDL of 32 and HDL 27. 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 [Ecotrin] 81 mg PO DAILY@0800 tab 11/23/16 [Rx Confirmed 02/02/19] Cetirizine HCl [Zyrtec] 10 mg PO DAILY PRN 01/15/17 [History Confirmed 02/02/19] DiphenhydrAMINE [Benadryl] 25 mg PO TID PRN PRN 01/15/17 [History Confirmed 02/02/19] nitroglycerin 0.4 mg sublingual tablet 0.4 mg SUBLINGUAL Q5-15M PRN #25 tab 10/17/17 [Rx Confirmed 02/02/19] ibuprofen 600 mg tablet 600 mg PO TID PRN #21 tab 06/01/18 [Rx Confirmed 02/02/19] omeprazole 20 mg capsule,delayed release 20 mg PO DAILY #30 cap 09/08/18 [Rx Confirmed 02/02/19] coenzyme Q10 100 mg capsule 100 mg PO DAILY 10/26/18 [History Confirmed 02/02/19] arginine (L-arginine) 500 mg capsule 500 mg PO DAILY cap 02/02/19 [History Confirmed 02/02/19] atorvastatin 80 mg tablet 80 mg PO QHS #30 tab 02/02/19 [Rx Confirmed 02/02/19] bupropion HCl XL 300 mg 24 hr tablet, extended release 300 mg PO QAM 02/02/19 [History Confirmed 02/02/19] cholecalciferol (vitamin D3) 5,000 unit capsule 5,000 unit PO DAILY 02/02/19 [History Confirmed 02/02/19] clopidogrel 75 mg tablet 75 mg PO DAILY #30 tab 02/02/19 [Rx Confirmed 02/02/19] hydrocodone bitartrate ER 40 mg tablet,crush resist,extended rel. 24hr 40 mg PO BID tab 02/02/19 [History Confirmed 02/02/19] PFSH Medical History Supraventricular tachycardia (Chronic) Atherosclerotic heart disease of [place] coronary artery with other forms of angina pectoris (Chronic) Obesity (BMI 30.0-34.9) (Chronic) Dyslipidemia (Chronic) Ischemic cardiomyopathy (Resolved) Acute ST elevation myocardial infarction (STEMI) (Resolved) Chronic back pain (Chronic) Testosterone deficiency (Chronic) Pericarditis (Resolved) Surgical History (Updated 01/26/19 @ 12:24 by Crystal Reynolds) History of coronary artery stent placement (Chronic 11/19/16) H/O nasal polypectomy (Chronic) History of back surgery (Chronic) History of left heart catheterization (Chronic 12/16/16) Family History Mother Cancer Father Cancer Social History (Updated 02/02/19 @ 16:23 by Colten Toth MD) Smoking Status: Former smoker alcohol intake: current alcohol intake frequency: a few times a month caffeine: Yes Type: coffee Number of servings: 3 ROS Const Const: Positive for fatigue and other (Occasional CP, just mild. Had stress in May and echo in November. Tired often); negative for weakness, body ache, fever(s), headache(s), chills, frequent falls, night sweats, daytime sleepiness, difficulty sleeping, excessive sweating, weight gain, weight loss, increased appetite, poor appetite or anorexia Eyes Eyes: Negative for blind spots, loss of peripheral vision, transient loss of vision, blurry vision, change in vision, double vision, floaters, tunnel vision or other ENT ENT: Negative for headache(s), dizziness, hearing loss, tinnitus, Nosebleed/epistaxis, balance problems, post nasal drip, lip swelling, tongue swelling, bleeding gums, hoarseness, neck pain, dry mouth or other Cardio Chest Pain: Yes (not as bad as last time he had office visit (stress neg)) Frequency: other (a few times a week, vague) Character: sharp, dull Onset: at rest Location: mid sternal Duration: minutes (a couple minutes or less) Exacerbation: other (spontaneous) Relieving: other (spontaneous) Palpitations: No Edema: None Muscle aches with walking: None Resp Respiratory: Negative for SOB with activity, SOB at rest, SOB orthopnea\SOB lying down, Cough, Coughing up blood/hemoptysis, chest congestion, pain on inspiration, snoring, stridor, wheezing, crackles, paroxysmal nocturnal dyspnea or other GI GI: Negative nausea, vomiting, heartburn, constipation, belching, bloating, cramping, vomiting blood/hematemesis, bright, red blood in stools, black,tarry stools, loose stools, Difficulty Swallowing or other : Negative for hematuria, frequent nighttime urination/ nocturia, erectile dysfunction or abnormal vaginal bleeding Musc Musc: Negative for muscle aches/ myalgia, muscle weakness, joint pain or balance problems Skin Skin: Negative redness, non-healing lesions, rash, unusual bruising, skin ulcer, wounds, jaundice or other Neuro Neuro: Negative for dizziness, lightheadedness, near syncope, syncope, orthostatic symptoms, frequent falls, headache(s), weakness, confusion, memory loss, restless legs, blurry vision, double vision, vertigo, seizures, lack of coordination or other Gee Hematologic/Lymphatic: Negative for easy bleeding, easy bruising, enlarged lymph nodes or other Endo Endo: Positive for fatigue; negative for cold intolerance, heat intolerance, excessive sweating, flushing, increased thirst/drinking, increased hunger, hair loss, hair growth or other Psych Psych: Negative for anxiety, depression, thoughts of harming anyone, thoughts of harming yourself, visual hallucinations, panic attacks or audible hallucinations Allergy Allergy/Immunology: Negative for throat swelling, Negative for tongue swelling, Negative for hives, Negative for rash, Negative for lip swelling Cardiology Exam Const Appearance: cooperative, healthy appearing and no acute distress Nutritional Appearance: well nourished Orientation: alert, oriented x3 and oriented to person Head Head: normal to inspection, normocephalic and atraumatic Nose: external nose normal Face and Sinus: face symmetric Mouth: oral mucosae normal Eyes General: appearance normal, both eyes and all related structures Eyelids: eyelids normal Conjunctivae: conjunctivae normal Pupils: PERRL and normal by confrontation EOM: EOM intact bilaterally Neck Neck: normal visual inspection and full ROM Carotids: normal carotid upstroke Chest Chest inspection: normal inspection of the chest Auscultation: Bilateral: Clear to Auscultation Cardio Palpation: normal PMI Rate: regular rate Rhythm: regular rhythm Heart sounds: S1 normal and S2 normal GI GI: normal to inspection, no hepatosplenomegaly and bowel sounds present Neuro General: alert, awake, oriented x3, CN's II-XI intact bilaterally and moves all extremities Skin Skin: no rashes or lesions noted Extremities Pulses: Normal: Right Femoral Pulse, Left Femoral Pulse, Right Dorsalis Pedis Pulse, Left Dorsalis Pedis Pulse, Right Posterior Tibial Pulse, Left Posterior Tibial Pulse, Right Radial Pulse, Left Radial Pulse Lower Extremity Edema: None: Bilateral Psych Psychological: normal affect Assessment & Plan 1. Atherosclerotic heart disease of [place] coronary artery with other forms of angina pectoris I25.118 LWE-GSD-Ocaj LAD w/ 3.0 x 12 mm Promus Synergy JANKI and JANKI-Mid LAD 3.0 x 12 mm Promus Synergy and POBA-D2 11/19/2016 Plan 1. Coronary artery disease: Patient continues to have episodes of exertional chest pain, albeit of less intensity than our last visit. His stress echocardiogram was negative for inducible ischemia and negative for chest pain and an excellent workload, but nonetheless he continues to have anginal symptoms and a degradation of his exercise capacity and energy level. After much discussion with the patient we have agreed that we should relook at his coronary arteries and specific attention to his proximal LAD stent to determine if he may benefit from additional intervention. In the meantime he will continue his baby aspirin, Plavix, we will discontinue his metoprolol as this is a very low dosage and is most likely contributing to his fatigue. He will continue his bupropion. The risk/benefits of the procedure were thoroughly explained to the patient including specific attention to lack of on-site surgical back-up, and the patient is agreed to proceed with left heart catheterization. Orders Orders: 12 Lead EKG performed by [facility] Today Left Heart Cath/COR/LV Percut 1 Week Basic Metabolic Profile (BMP) Today Prothrombin Time w/INR Today CBC W/Diff, Automated Today Chest PA and Lateral Today 2. Dyslipidemia E78.5 Plan 2. Dyslipidemia: Patient is currently on Lipitor at this time. Repeat lipids are pending. 3. Return office in 6 months. This note was generated using a voice recognition system and there may be incorrect words, spelling or punctuation that were not noted when reviewing the office note prior to saving. Plan Detail Other Medications New: bupropion HCl XL 300 mg PO QAM hydrocodone bitartrate ER ([place] ER) 40 mg PO BID arginine (L-arginine) 500 mg PO DAILY cholecalciferol (vitamin D3) 5,000 units PO DAILY Refilled: atorvastatin 80 mg PO QHS 30 tabs 11RF clopidogrel 75 mg PO DAILY 30 tabs 11RF Discontinued: metoprolol succinate ER Discontinued Reason: Order Changed 25 mg PO QDAY 30 tabs 11RF Follow Up +6M ([place]) Coding Level of Care Code Off vis,est,level 3 Diagnoses Atherosclerotic heart disease of [place] coronary artery with other forms of angina pectoris I25.118 Dyslipidemia E78.5 Coding Level of Care Code Off vis,est,level 3 Diagnoses Atherosclerotic heart disease of [place] coronary artery with other forms of angina pectoris I25.118 Dyslipidemia E78.5 Supplemental Info Supplemental Information Labs LDL Cholesterol 32 mg/dL (0-130) 09/12/17 HDL Cholesterol 27 mg/dL (40-) L 09/12/17 Triglycerides 129 mg/dL (-199) 09/12/17 VLDL Cholesterol 26 mg/dL (5-40) 09/12/17 Diagnostics Electrocardiogram 04/08/18 Echocardiogram 11/09/18 Stress Echocardiogram 06/03/18 Stress Test Nuclear Medicine 10/07/16 Stress Test 10/07/16 Chest X-Ray 04/08/18 02/02/19 1020 <Electronically signed by Colten Toth MD> Date Colten Toth MD Cosigner Signature: Date (if applicable) CC: Oneal Parker MD ~ Interventional cardiology addendum: Patient seen and examined subsequent to his office visit, no interim changes noted. The risks/benefits of the cardiac catheterization procedure were thoroughly explained to the patient including specific attention to lack of on-site surgical back-up. Patient is agreed to proceed. We will follow with left heart catheterization.All questions answered.
[2019-02-18] MEDS: Pantoprazole Sodium 20 MG Tablet PO (13:37)
[2019-02-18] MEDS: buPROPion (XL) 300 MG TABLET.XL PO (13:37)
[2019-02-18] MEDS: CLARIFY ORDER NOTE (13:43)
--- NOTE | 2019-02-18 13:56 | CRPHASE1 ---
Patient Communication Former Patient:: Phase I PHII Cardiac Rehab Discussed with Patient:: Yes Guide to Cardiac Rehab Given to Patient:: Yes Cardiac Rehab Facility Choice List Given to Patient:: Yes - [facility] Choice Program [facility] CR PHII:: Communication Given to CR, Refer to [facility] Vault Clerk:: Colten Toth PCP:: Oneal Parker Phase II Cardiac Rehab:: Yes Sessions:: 36 sessions - 3 days/wk, 12 weeks Phase I Charge:: Level I - Education Risk Factors/Lifestyle Smoking Status: Former smoker Second-Hand Smoke:: No Hx Hypertension: No Hx Obesity: Yes Height: 6 ft Weight:: 252 lb BMI: 34.2 Stress: Recent ETOH: Yes Family History: Family History (Last Reviewed 01/26/19 @ 12:23 by Crystal Reynolds) Mother Cancer Father Cancer Family History: Cancer Past Cardiac Illness: Previous PCI w/Stent Phase I Education Given On:: [place], Nutrition, Antiplatelet medication Issues Affecting Care:: None Knowledge of Condition:: Yes Learning Preferences: Verbal, Written, Audio/Visual, Demonstration Medical/Surgical History MD:: Yes - STEMI Angina:: Yes - states has had angina since previous stents. Cardiomyopathy:: Yes - ischemic Dyslipidemia:: Yes Arrhythmias:: Yes - afib PTCA:: Yes - 02/18/19 and stents 2 years ago Cardiac Rehabilitation Info Cardiac Rehabilitation Program Information: Cardiac Rehabilitation is important for patients like you who are recovering from a heart problem. Cardiac rehabilitation programs are recognized as integral to the continued care of the patient with coronary heart disease. The cardiac rehabilitation program is designed to optimize a patient's physical, psychological, and social functioning. Health career resource technician work in cardiac rehabilitation programs and assist you with getting the treatments you need to get stronger and healthier - like exercise, healthy eating habits, and medications. Cardiac rehabilitation has been show to help people with heart problems live longer and have better life enjoyment than people who do not go to cardiac rehabilitation. Please contact the Cardiac Rehabilitation Program at [facility] at in two weeks if you have not heard from them.
--- NOTE | 2019-02-18 14:03 | CRPH1.INSTRU ---
General Education CAD and cardiac anatomy and function:: Patient communicates acknowledgment, Needs reinforcement Explanation of diagnoses and procedures:: Patient communicates acknowledgment, Needs reinforcement Sign/Symptoms of IA:: Patient communicates acknowledgment, Needs reinforcement Antiplatelet therapy: Patient communicates acknowledgment, Needs reinforcement Proper use of NTG-SL: Patient communicates acknowledgment, Needs reinforcement Emergency procedures and activation of EMS: Patient communicates acknowledgment, Needs reinforcement Compliance of all prescribed medications: Patient communicates acknowledgment, Needs reinforcement Smoking Patient Nicotine/Smoking Risk Factors Are:: Non-smoker Recommendations Include:: Previous smoker; encourage continued cessation Nicotine/Smoking Response Code:: Patient returns demonstration Dyslipidemia Patient Dyslipidemia Risk Factors Are:: Total Cholesterol, Triglycerides, HDL, LDL Recommendations Include:: Lipid profile provided, Reviewed NCEP/ATP guidelines, Therapeutic Lifestyle Change dietary guidelines Dyslipidemia Response Code:: Patient communicates acknowledgment, Needs reinforcement Overweight/Obesity Patient Overweight/Obesity Risk Factors Are:: Obesity - > or = 30 Recommendations Include:: Weight loss of 5-10%, Reduced calorie diet, Exercise 5-7 times/week Overweight/Obesity:: Patient communicates acknowledgment, Needs reinforcement Hypertension Patient Hypertension Risk Factors Are:: No documented hx of HTN Hypertension:: Not instructed Heart Disease Patient Heart Disease Risk Factors Are:: Family history of heart disease < 65 years old, Previous cardiac event Recommendations Include:: Educated family members of their risk, Educated family members of importance of prevention of heart disease Heart Disease Response Code:: Patient communicates acknowledgment Diabetes Patient Diabetes Risk Factors Are:: No documented hx of diabetes Diabetes:: Not instructed Metabolic Syndrome Patient Metabolic Syndrome Risk Factors Are [3 of 5]:: Fasting blood sugar > 100 mg/dL, Waist circumference > 35 [female] or 40 [male], Low HDL <40 [male] or < 50 [female] Recommendations Include:: Reinforce compliance to risk factor modifications, Encouraged follow-up with Primary Care Physician Metabolic Syndrome Response Code:: Patient communicates acknowledgment, Needs reinforcement Sedentary Patient Sedentary Risk Factors Are:: Lack of regular exercise Recommendations Include:: Aerobic exercise 5-7 times/week for 20-30 minutes continuously, Benefits of regular exercise, Discussed home walking program, Monitored Outpatient Cardiac Rehab Sedentary Response Code:: Patient communicates acknowledgment, Needs reinforcement Stress Recommendations Include:: Identification of stressors, and assessment of coping skills, Stress management techniques Stress Response Code:: Patient communicates acknowledgment, Needs reinforcement
[2019-02-18] MEDS: 0.9% Saline Lock 10 ML Syringe IV (18:08)
[2019-02-18] MEDS: Morphine 2 MG/ML Syringe IV (18:09)
[2019-02-18] MEDS: Atorvastatin Calcium 80 MG Tablet PO (20:54)
[2019-02-19] VITALS (13 sets, daily range): BP systolic 107–158; BP diastolic 53–91; PULSE 58–95; RESP 15–20; TEMP 36.6–36.8; O2SAT 93–97
[2019-02-19] MEDS: Morphine 2 MG/ML Syringe IV ×3 (00:45→08:42)
[2019-02-19] MEDS: Metoclopramide 10 MG/2 ML Vial 5 MG IV (03:33)
[2019-02-19] MEDS: Ibuprofen 600 MG Tablet PO (03:33)
[2019-02-19] MEDS: 0.9% Saline Lock 10 ML Syringe IV ×3 (03:34→08:42)
[2019-02-19 04:57] LABS: Hematocrit 47.6 % (40-54); Hemoglobin 16.5 g/dL (13.0-16.5); Mean Corp Hgb Conc 34.7 g/dL (32-36); Mean Corpuscular Volume 89.5 fL (80-94); Mean Platelet Vol. 9.2 fl (6.2-12.0); Platelet Count 216 K/mm3 (150-450); RBC Distribution Width CV 12.8 % (11.6-14.6); RBC Distribution Width SD 41.5 fl (35.1-43.9); Red Blood Count 5.32 M/mm3 (4.6-6.2); White Blood Count 11.1 K/mm3 (4.4-11.0)
[2019-02-19 05:17] LABS: ALB/GLOB Ratio 1.1 RATIO (0.9-2.4); AST(SGOT) 24 U/L (15-37); Alanine Aminotransfer ALT/SGPT 65 U/L (16-61); Albumin, Serum 3.6 g/dL (3.2-5.0); Alkaline Phosphatase 84 U/L (45-117); Anion Gap 10 (5-15); BUN 18 mg/dL (7-18); BUN/Creat Ratio 17.5 RATIO (10-20); Calcium,Total 8.7 mg/dL (8.5-10.1); Chloride 106 mmol/L (98-107); Creatinine, Serum 1.03 mg/dL (0.70-1.30); EST Glomerular Filtration Rate 80 mL/min (>60); Est Glom Filt Rate - Afr Amer 97 mL/min (>60); Estimated Creatinine Clearance 92.08 ml/min; Globulin 3.4 g/dL (2.2-4.2); Glucose 134 mg/dL (74-106); Potassium 4.1 mmol/L (3.5-5.1); Sodium Level 142 mmol/L (136-145)
--- NOTE | 2019-02-19 08:43 | PCM.DC.CCA ---
Discharge Diet: Low fat/ Low Cholesterol Discharge Activity: Return to Normal Activity Return to work on:: 02/23/19 May shower in (days): 1 Lifting Restrictions: 10 pounds and also avoid any pushing or pulling for 3 days after your test. Call your doctor if your incision/area has: Continuous Slow Oozing, Sudden Increased Bleeding, Increased Pain/ Swelling, Increased Redness, Foul Smelling Discharge, Swelling at the incision site Call your doctor if you observe: Fever of 101 or Higher, Shortness of breath, Chest pain Remove Dressing in (days):: 1 Additional Dressing/Incision Instructions:: Keep the dressing (bandage) on until the next morning. You may then shower, but do not take a tub bath for 5 days after your test. It is normal to have some tenderness and discomfort at the puncture site. Sometimes bruising also occurs. However, if pain, numbness, or coldness occurs below the puncture site (in your leg, toes, arms or fingers) call your doctor at once. You may have a small, marble sized knot at the puncture site. This is normal. Do not rub it. It will go away in 4-6 weeks. Bleeding can occur from the area where the puncture was done. Blood may spurt or drip from the site. If blood spurts, apply pressure right away to stop bleeding and call 911. Although rare, bleeding into the tissue (hematoma) can also occur. If this happens, a large, firm area goose egg under the skin will appear. If any of these occur, lie down as flat as you can and have someone apply firm pressure to the cath site with a gauze pad or a clean washcloth for 10-15 minutes. Call 911 or go to the Emergency Department. Additional Instructions: He will need to stay on your Plavix for at least one year. I do encourage you to start cardiac rehab. I did add by systolic to help with blood pressure control. If you are still fatigued with this we can discuss this at your next office visit. I also did send a prescription over to [facility] for Crestor she may stop your atorvastatin. Allergies/Adverse Reactions: Allergies lisinopril Allergy (Verified 02/02/19 15:55) Angioedema losartan [From Cozaar] Allergy (Verified 02/02/19 15:55) Angioedema ENVIRONMENTAL Allergy (Uncoded 04/08/18 19:02) Other Grass, trees, etc Medications to take at Discharge Aspirin E.C. [Ecotrin] 81 mg PO DAILY@0800 tab 11/23/16 Cetirizine HCl [Zyrtec] 10 mg PO DAILY PRN 01/15/17 DiphenhydrAMINE [Benadryl] 25 mg PO TID PRN PRN 01/15/17 nitroglycerin 0.4 mg sublingual tablet 0.4 mg SUBLINGUAL Q5-15M PRN #25 tab 10/17/17 ibuprofen 600 mg tablet 600 mg PO TID PRN #21 tab 06/01/18 omeprazole 20 mg capsule,delayed release 20 mg PO DAILY #30 cap 09/08/18 coenzyme Q10 100 mg capsule 100 mg PO DAILY 10/26/18 arginine (L-arginine) 500 mg capsule 500 mg PO DAILY cap 02/02/19 atorvastatin 80 mg tablet 80 mg PO QHS #30 tab 02/02/19 bupropion HCl XL 300 mg 24 hr tablet, extended release 300 mg PO QAM 02/02/19 cholecalciferol (vitamin D3) 5,000 unit capsule 5,000 unit PO DAILY 02/02/19 clopidogrel 75 mg tablet 75 mg PO DAILY #30 tab 02/02/19 Oxycodone Myristate [Xtampza ER] 9 mg PO DAILY 02/18/19 Nebivolol HCl [Bystolic (Beta Livan)] 2.5 mg PO DAILY #30 tab 02/19/19 The following prescriptions were given: Nebivolol HCl [Bystolic (Beta Livan)] 2.5 mg PO DAILY #30 tab Transmission Status: Pending to [facility]/pharmacy #[id number] Orders to be completed after discharge: Phase II, Outpatient Cardiac Rehab Location: None Selected Primary Care Physician: Oneal aPrker MD [Primary Care Provider] - Test Results: Test results from this visit will be discussed in further detail at your follow-up appointment, if applicable. Please Follow Up With: Faiza Dubose PA When: 03/10 At 0830 Cardiac Rehabilitation Info Cardiac Rehabilitation Program Information: Cardiac Rehabilitation is important for patients like you who are recovering from a heart problem. Cardiac rehabilitation programs are recognized as integral to the continued care of the patient with coronary heart disease. The cardiac rehabilitation program is designed to optimize a patient's physical, psychological, and social functioning. Health career and technology education teacher work in cardiac rehabilitation programs and assist you with getting the treatments you need to get stronger and healthier - like exercise, healthy eating habits, and medications. Cardiac rehabilitation has been show to help people with heart problems live longer and have better life enjoyment than people who do not go to cardiac rehabilitation. Please contact the Cardiac Rehabilitation Program at [facility] at in two weeks if you have not heard from them.
[2019-02-19] MEDS: buPROPion (XL) 300 MG TABLET.XL PO (08:48)
[2019-02-19] MEDS: Aspirin E.C. 81 MG Tablet PO (08:48)
[2019-02-19] MEDS: Pantoprazole Sodium 20 MG Tablet PO (08:48)
[2019-02-19] MEDS: Clopidogrel Bisulfate 75 MG Tablet PO (08:49)
--- NOTE | 2019-02-19 09:19 | PN.CARD_ITS ---
<DuboseFaiza kyle M - Last Filed: 02/19/19 09:19> Subjectve: Pt is post heart cath with stenting to his LAD. He has no chest pain/SOB. He has not complaints today. Objective: Vital Signs Temp Pulse Resp BP Pulse Ox 98.1 F 80 19 H 151/84 H 96 02/19/19 07:00 02/19/19 07:00 02/19/19 07:00 02/19/19 07:00 02/19/19 08:16 Oxygen Delivery Method Room Air Weight: 253 lb 12.033 oz Body Mass Index (BMI) 34.2 Intake and Output for Last 24 Hours 02/17/19 02/18/19 02/19/19 23:59 23:59 23:59 Intake Total 1740 / 1980 600 / 600 Output Total 700 / 700 Balance 1040 / 1280 600 / 600 General: Healthy Appearing, Awake, Alert, Oriented x 3, Cooperative, No Acute Distress HEENT: Atraumatic, Normocephalic, PERRL Oral: Moist Mucosa Neck: Supple, Good ROM, No JVD Lungs: Clear to auscultation Cardiovascular: Regular Rhythm, Normal S1, Normal S2, No Murmurs, No Rubs, No Gallops Vascular: No Carotid Bruits, Normal Femoral Pulses, - - Right groin tender, no hematoma noted, no bruit Abdomen: Bowel Sounds Present, Soft, Non Tender Extremities: No Cyanosis, No Clubbing, No edema Neurological: No Focal Motor or Sensory Deficit, CN II-XII Intact 02/19/19 04:50: WBC 11.1 H, RBC 5.32, Hgb 16.5, Hct 47.6, MCV 89.5, MCH 31.0, MCHC 34.7, Plt Count 216, MPV 9.2 02/19/19 04:50: Sodium 142, Potassium 4.1, Chloride 106, Carbon Dioxide 26.0, Anion Gap 10, BUN 18, Creatinine 1.03, Est GFR (MDRD) Af Amer 97, Est GFR (MDRD) Non-Af 80, BUN/Creatinine Ratio 17.5, Glucose 134 H, Calcium 8.7, Total Bilirubin 0.50 Rhythm: EKG: ECHO: Stress Test: Cardiac Cath:LEFT HEART ASSESSMENT Left Ventricular Ejection Fraction: by LV Gram 45 % Depressed Left Ventricular systolic function LVEDP: 5 mmHg Normal Left Ventricular End Diastolic Pressure Anterior Hypokinesis - Moderate LEFT MAIN: Angiographically normal LEFT ANTERIOR DESCENDING ARTERY: PROX LAD: Previously placed stent is patent MID LAD: Previously placed stent is patent, 75 % Stenosis DIAGONAL 2: Ostial - 50 % Stenosis CIRCUMFLEX ARTERY: Mild luminal irregularities less than 30% OM 1: Ostial - Moderate luminal irregularities up to 50% RIGHT CORONARY ARTERY: MID RCA: Moderate luminal irregularities up to 50% DISTAL RCA: Mild luminal irregularities less than 30% INTERVENTION INFORMATION LESION SITE: LAD (Mid) Lesion Complexity: High/C, lesion at bifurcation: No, thrombus present: No, lesion length: 24 mm, culprit lesion: Yes Pre Stenosis: 75 % Pre intervention TORIN flow: 3 Post Stenosis: 0 % PCI: CT Surgery: Holter monitor: EPS: PPM: CXR: Chest CT Scan: Medical Necessity - Tobacco Use Smoking Status: Former smoker Assessment/Plan 1. Coronary artery disease: Patient recently underwent stenting of his LAD. At his office visit his metoprolol was discontinued due to his fatigue. However it is noted that his blood pressure is elevated today. Will have him start by s ystolic at a low dose. He is not on an FIONA or an arm due to a true allergy. He will continue with his aspirin and Plavix. He knows that he needs to continue his Plavix for at least one year prior to interrupting. 2. Hypertension: It is noted that patient's blood pressure is elevated today. We will have him start by systolic. He will follow-up in the office accordingly. 3. Hyperlipidemia: Patient is currently on Lipitor however he is concerned that this is attributing to memory loss. We will switch him over to Crestor. He is aware that he needs to have his lipids under adequate control as he has had his LAD yesterday and previously in 2017. <Colten Toth - Last Filed: 02/19/19 13:14> Objective: Vital Signs Temp Pulse Resp BP Pulse Ox 98.3 F 88 19 H 151/84 H 93 02/19/19 08:00 02/19/19 10:00 02/19/19 10:00 02/19/19 10:00 02/19/19 10:00 Oxygen Delivery Method Room Air Weight: 253 lb 12.033 oz Body Mass Index (BMI) 34.2 Intake and Output for Last 24 Hours 02/17/19 02/18/19 02/19/19 23:59 23:59 23:59 Intake Total 1740 / 1980 600 / 600 Output Total 700 / 700 Balance 1040 / 1280 600 / 600 02/19/19 04:50: WBC 11.1 H, RBC 5.32, Hgb 16.5, Hct 47.6, MCV 89.5, MCH 31.0, MCHC 34.7, Plt Count 216, MPV 9.2 02/19/19 04:50: Sodium 142, Potassium 4.1, Chloride 106, Carbon Dioxide 26.0, Anion Gap 10, BUN 18, Creatinine 1.03, Est GFR (MDRD) Af Amer 97, Est GFR (MDRD) Non-Af 80, BUN/Creatinine Ratio 17.5, Glucose 134 H, Calcium 8.7, Total Bilir ubin 0.50 Rhythm: EKG: ECHO: Stress Test: Cardiac Cath: PCI: CT Surgery: Holter monitor: EPS: PPM: CXR: Chest CT Scan: Assessment/Plan Interventional cardiology addendum: The patient seen and examined with Faiza and agree with above. The patient will be discharged home and follow-up with Dr. Toth going forward.His aspirin and Plavix and be arranged for cardiac rehab. In addition we will 10 you try him on by systolic and hopefully this will agree with him better than previous beta-blockers with respect to his side effect profile.In addition we will try him on Crestor 10 mg p.o. nightly given his concerns were Lipitor and memory loss. Patient will be discharged home and follow-up with Dr. Toth As an outpatient. Code Visit Inpatient E&M: 10194 Subs Hosp L2
--- NOTE | 2019-02-19 10:00 | EKG12_ITS ---
Test Reason : AM EKG Blood Pressure : / mmHG Vent. Rate : 078 BPM Atrial Rate : 078 BPM P-R Int : 150 ms QRS Dur : 096 ms QT Int : 372 ms P-R-T Axes : 036 001 038 degrees QTc Int : 424 ms Normal sinus rhythm Septal infarct , age undetermined Abnormal ECG Confirmed by SHELL ESPINOSA, ELDON ([id number]), greeting card editor QUEENIE OZUNA ([id number]) on 02/23/2019 1:54:11 PM Referred By: Colten Toth Confirmed By:ELDON GOFF MD
== END 2019-02-19 11:00 | disposition home or self-care (01) ==
LOC: CLSP 06:43 → ICU 09:45
PROVIDERS: Family Provider Family Medicine; PCP Family Medicine; Referring Provider Internal Medicine Cardiovascular Disease; Visit Provider Internal Medicine Cardiovascular Disease
DX: I25.110 Atherosclerotic heart disease of native coronary artery with unstable angina pectoris (principal); I47.1 Supraventricular tachycardia; E78.5 Hyperlipidemia, unspecified; I25.2 Old myocardial infarction; F32.9 Major depressive disorder, single episode, unspecified; E66.9 Obesity, unspecified; I11.0 Hypertensive heart disease with heart failure; I50.20 Unspecified systolic (congestive) heart failure; Z79.899 Other long term (current) drug therapy; Z79.82 Long term (current) use of aspirin; Z87.891 Personal history of nicotine dependence; Z79.02 Long term (current) use of antithrombotics/antiplatelets; Z68.34 Body mass index [BMI] 34.0-34.9, adult; Z95.5 Presence of coronary angioplasty implant and graft
CPT/HCPCS: 71046; 80053; 85027; 85347; 92928; 93005; 93458; 99152; 99153; C1760; J7030; J7040; Q9967; A4216; C1725; C1769; C1874; C1887; C1894; C9600

== ENCOUNTER → 2019-03-02 07:39 | Outpatient (CLI) | payer OTHER, SELFPAY ==
[2019-02-18 09:28] VITALS: BMI 34.2
[2019-02-18 14:01] VITALS: BMI 34.2
--- NOTE | 2019-03-02 07:42 | CR.HP_ITS ---
CR - History & Physical - General Arrival date:: 03/02/19 Arrival time:: 07:44 Date of Referral:: 02/18/19 Date of CR Evaluation:: 03/02/19 Referring Physician: DR. JA TOTH Primary Diagnosis: PCI W/CORONARY STENT - History of Present Cardiac Event Onset Date: Enter Onset Date of cardiac illnesses in Comment field below PTCA or coronary stenting:: Yes - 02/18/2019, previous stent in Type of Symptoms:: Ongoing chest pain (angina) finally got bad enought Dr. Toth wanted to go back in a look around. Found a narrowed section between the previous stents. Interventions with present event:: office visit, follow-up heart cath Were there any complications?: none - Medications Home Medications: Ambulatory Orders Medication Instructions Recorded Aspirin E.C. [Ecotrin] 81 mg PO DAILY@0800 tab 11/23/16 Cetirizine HCl [Zyrtec] 10 mg PO DAILY PRN 01/15/17 DiphenhydrAMINE [Benadryl] 25 mg PO TID PRN PRN 01/15/17 nitroglycerin 0.4 mg sublingual 0.4 mg SUBLINGUAL Q5-15M PRN #25 10/17/17 tablet tab ibuprofen 600 mg tablet 600 mg PO TID PRN #21 tab 06/01/18 omeprazole 20 mg capsule,delayed 20 mg PO DAILY #30 cap 09/08/18 release coenzyme Q10 100 mg capsule 100 mg PO DAILY 10/26/18 arginine (L-arginine) 500 mg 500 mg PO DAILY cap 02/02/19 capsule bupropion HCl XL 300 mg 24 hr 300 mg PO QAM 02/02/19 tablet, extended release cholecalciferol (vitamin D3) 5,000 5,000 unit PO DAILY 02/02/19 unit capsule clopidogrel 75 mg tablet 75 mg PO DAILY #30 tab 02/02/19 Oxycodone Myristate [Xtampza ER] 9 mg PO DAILY 02/18/19 Nebivolol HCl [Bystolic (Beta 2.5 mg PO DAILY #30 tab 02/19/19 Livan)] rosuvastatin 40 mg tablet 40 mg PO DAILY #30 tab 02/19/19 - Allergies Allergies/Adverse Reactions: Allergies lisinopril Allergy (Verified 02/02/19 15:55) Angioedema losartan [From Cozaar] Allergy (Verified 02/02/19 15:55) Angioedema ENVIRONMENTAL Allergy (Uncoded 04/08/18 19:02) Other Grass, trees, etc - Sleep Disorder Evaluation Hx of Sleep Apnea: No Do you snore loudly (louder than talking or can be heard through closed doors)?: Yes - was tested and was negative Do you often feel tired/ fatigued/ sleepy during daytime?: No Has anyone observed you stop breathing during sleep?: No History of Hypertension (for STOP score): Yes STOP Results: Positive Advanced Directives - Advanced Directives Power of Recreation Attendant: No Living Will: No Advance Directives Information Provided: Yes Advance Directives on File: No DNR Order?:: No - MOLST See MOLST form: No Past Medical History - Past Medical Illness Medical History: Past Medical History (Last Updated 02/08/19 @ 11:59 by Crystal Reynolds) Dizziness (Acute) R42 Frequent headaches (Acute) R51 Supraventricular tachycardia (Chronic) I47.1 Atherosclerotic heart disease of [place] coronary artery with other forms of angina pectoris (Chronic) I25.118 ZUE-YJM-[place] LAD w/ 3.0 x 12 mm Promus Synergy JANKI and JANKI-Mid LAD 3.0 x 12 mm Promus Synergy and POBA-D2 11/19/2016 Obesity (BMI 30.0-34.9) (Chronic) E66.9 Dyslipidemia (Chronic) E78.5 Ischemic cardiomyopathy (Resolved) I25.[address] elevation myocardial infarction (STEMI) (Resolved) I21.3 Chronic back pain M54.9, G89.29 Testosterone deficiency E34.9 Pericarditis I31.9 - Past Surgical History Surgical History: Past Surgical History (Last Updated 02/22/19 @ 09:31 by Crystal Reynolds) History of coronary artery stent placement (Chronic) Onset Date: 02/18/19 Z95.5 11/19/2016: CFA-VOX-[place] LAD w/ 3.0 x 12 mm Promus Synergy JANKI and JANKI-Mid LAD 3.0 x 12 mm Promus Synergy and POBA-D2. 02/18/19:Segmented LV systolic dysfunction- Moderate Successful PTCA/JANKI MID LAD with a 3.0 x 24 Promus Synergy overlapping previously placed stents, post dilated througout with a 3.0 x 12 NC balloon; 75%-->0%, no dissection. Pt had similar CP during stent deployment, but of less intensity as he was having at home. Kevin wire technique needed down LAD in order to pass stents and NC balloons. No encroachment of ostium of DIAG#1. H/O nasal polypectomy Z98.890, Z87.09 History of back surgery Z98.890 X 2 History of left heart catheterization Onset Date: 12/16/[address] [facility] w/ FFR-LAD Surgical History: - - Back surgery ?2. - Family History Summary Family History: Family History (Last Reviewed 01/26/19 @ 12:23 by Crystal Reynolds) Mother Cancer Father Cancer Social History - Smoking History Smoking Status: Former smoker Hx Tobacco Use: No Hx Smoking Exposure: No - Alcohol Use Alcohol Usage: Yes - very rarely. - Substance Abuse Hx Substance Use: No - Occupation Occupation (List type of work in comments):: Employed Hours worked per day:: 9 Returned to work on:: 02/22/19 - Hobbies, Recreation, Social Activities Hobbies: None, Other Recreational Activities: I am able to engage in all my recreational activities, I am able to engage in most, but not all activities Social Environment - Status Marital Status: - Current Living Arrangements Living Environment:: Spouse - Children How many children do you have?: 4 - 1 still at home Do any of your children live nearby?: Yes - Safety Do you feel safe in your surroundings?: Yes - Assistance Do you need any assistance at home?: none Review of Systems - Review of Systems Hints: Right click = Denies (Slash). Left click = Reports ([place]) Review of Present Symptoms: Reports: Shortness of Breath at Rest, Shortness of Breath with Exertion, Dizziness/Lightheadedness, Heart Arrhythmia/Irregularities - previous history of a-fib when did CR last time. nothing since then., Appetite - Normal, Sleep - Normal - 60-90 minute sleep intervals due to back pain but normal for me.. Denies: Angina - minimal chest pain described more as uncomfortable since the cath., Appetite - Special Diet - not really, no added salt. Low fat diet., Sexual Changes - Pain Is Patient Pain Free?: Yes Pain Location: none, back - chronic lower back pain rated at level 3 this morning. Risk Factor Assessment - Chief Complaint Chief Complaint: Patient is a previous cardiac rehab patient from [id number] who presents to cardiac rehab again following a recent heart cath and restenting of his coronary artery. - Vital Signs Temperature: 98.6 F Respiratory Rate: 14 Pulse Ox: 96 Blood Pressure: 124/70 Nailbeds:: pink - Pulse Pulse Rate: 68 Pulse Rhythm: Regular - Hypertension Blood Pressure Sitting - Left Arm: 124/70 - Blood Cholesterol/Lipids Total Cholesterol (mg/dL) Goal = less than 200 mg/dL: 85 - 09/12/2017 HDL Cholesterol (mg/dL) Goal = less than 40 mg/dL: 27 LDL Cholesterol (mg/dL) Goal = less than 70 mg/dL: 32 Triglycerides (mg/dL) Goal = less than 150 mg/dL: 129 - Diabetes Nutrition Referral for Diabetes: No - Obesity Height: 6 ft Weight:: 250 lb Weight in Pounds: 250.0 lbs Weight Source: Standing Scale Body Mass Index (BMI): 33.9 Nutritional Referral for Obesity: Yes - Patient could benefit from formal structured weight loss and cardiac diet - Physical Inactivity Physical Inactivity: Physically demanding job - Risk Stratification Risk Guidelines: Lowest Risk: Risk Factor for Smoking, Risk Factor for Dyslipidemia, Risk Factor for Diabetes, Risk Factor for Hypertension, Risk Factor for Sedentary Lifestyle, Risk Factor for Depression, Highest Risk: Risk Factor for Obesity - For Smoking Smoking Risk Guidelines: Smoking Low Risk: None or quit greater than 6 months ago. Smoking Moderate Risk: Smoker or quit 6 months or less ago. Smoking High Risk: Smoker - For Dyslipidemia Dyslipidemia Risk Guidelines: Low Risk: Moderate Risk: High Risk: 15-25% fat 25.1-29% fat >/= 30% fat. <7% sat fat 7-9% sat fat >9% sat fat. <150 mg chol 150-299 mg chol >/= 300 mg chol. LDL <100 LDL 100-129 LDL >/= 130. Chol/HDL ratio <5.0 Chol/HDL ratio 5.0-6.0 Chol/HDL ratio >6.0. Triglycerides <100 Triglycerides 100-149 Triglycerides >/= 150 - For Diabetes Mellitus Diabetes Risk Guidelines: Diabetes Low Risk: HgA1c <6.5% and/or FBG <120. Diabetes Moderate Risk: HgA1c 6.6-7.9% and/or FBG 120-180. Diabetes High Risk: HgA1c >/= 8% and/or FBG >180 - For Obesity/Overweight Obesity/Overweight Risk Guidelines: Obesity Low Risk: BMI <25.0. Obesity Moderate Risk: BMI 25-29.9. Obesity High Risk: BMI >/= 30.0 - For Hypertension Hypertension Risk Guidelines: Hypertension Low Risk: Systolic <120 and Diastolic <80. Hypertension Moderate Risk: Systolic 120-139 and Diastolic 80-89. Hypertension High Risk: Systolic >/= 140 and Diastolic >/= 90 - For Sedentary Lifestyle Sedentary Lifestyle Risk Guidelines: Sedentary Lifestyle Low Risk: >/= 1,500 kcal/week. Sedentary Lifestyle Moderate Risk: 700-1,499 kcal/week. Sedentary Lifestyle High Risk: < 700 kcal/week - For Depression Depression Risk Guidelines: Depression Low Risk: Not clinically depressed. Depression Moderate Risk: Mildly depressed. Depression High Risk: Clinically depressed - Family History Family History: Family History (Last Reviewed 01/26/19 @ 12:23 by Crystal Reynolds) Mother Cancer Father Cancer Motivation - Motivation to Participate On a scale of 1 to 10, how prepared are you to commit to attending program?: 5 - look forward to it, but hte motivation to do it is lower. I know it's something I have to do. What do you see as barriers to successfully being able to complete the program?: Lower back pain/ chronic pain back. What do you see as the benefits of succesfully completing the program? In other words, what do you hope to get out of participating in the program?: being able to find the motivation to do something else. Are there issues you are dealing with that will interfere with completing the program?: Depression the last 6 months wiht this angina pain and now this. Do you have a spouse or signficant other, family or friends who will help support you to complete the program?: yes.
--- NOTE | 2019-03-02 07:50 | PCM.CR.ITP ---
General Information - General Information Admitting Diagnosis: PCI w/stenting - Education/Goals Barriers to Learning: None Individual Counseling: Initial Assessment: Abnormal Cholesterol Levels, High Blood Pressure, Overweight/Obesity Cardiac Rehabilitation Goals: 1. Maintain the individual as the primary focus of care. 2. To improve the patient's quality of life. 3. Identification of cardiac risk factors and provide cardiac risk factor management. 4. Enhance the psychosocial status of the patient. 5. Reconditioning enough to allow the patient to resume customary activities. 6. Control symptoms of cardiac disease Scale for measuring improvement of personal goals: Enter appropriate number in Comments. 2 = Unchanged. 3 = Slightly Better. 4 = Moderate Improvement. 5 = Met my Goal Personal Goals: Initial Assessment: Improve management of stress and emotions, Improve energy level, Participate in home exercise program, Improve muscle strength and endurance, Control risk factors (learn risk factor modification) Exercise - Initial Assessment - Visit Date of Eval: 03/02/19 Session #:: 0 - START CR ON - Stages of Change Stages of Change:: Action - Stress Test EKG: SINUS RHYTHM - Physician Prescribed Exercise Modalities: Treadmill, Rower, Airdyne Frequency (days/week): 3x/week for 12 weeks [36 sessions] Intensity: 60-80% age predicted maximum heart rate reserve METs - Progression: 0.5-1.0 MET, RPE 11-14 WEEK: 3 Target Heart Rate:: 110-142 - Hypertension Do any of the following apply?: Yes, Medication, Diet Resting Blood Pressure:: 124/70 - Intervention Home Exercise/Activity Goal:: Moderate Exercise 30 min/day x 5 days/wk - Education Goals:: Warm-up, RPE KEVIN Scale, S/S, Safe Exercise, Self-Monitoring - Exercise Program Goals Exercise Program Goals: Aerobic Activity >30 min Nutrition - Initial Assessment - Program Goals Nutrition Program Goals: LDL <70. Total Cholesterol <200. HDL >45. Triglycerides <150. HgbA1C <7%. BMI <25 - Visit Date of Assessment:: 03/02/19 - Stages of Change Stages of Change:: Action - Lipids Total Cholesterol (mg/dL) Goal = less than 200 mg/dL: 85 - 09/12/2017 HDL Cholesterol (mg/dL) Goal = less than 45 mg/dL: 27 LDL Cholesterol (mg/dL) Goal = less than 70 mg/dL: 32 Triglycerides (mg/dL) Goal = less than 150 mg/dL: 129 - Diabetes Diabetes:: No - Weight Management Height: 6 ft Weight:: 250 lb Body Fat %:: 33.9 - Intervention Referral to dietitian:: Yes Referral to Diabetic Clinic:: No Will attend diet classes:: Yes - Education Gave educational materials for:: Healthy eating Tobacco - Initial Assessment - Program Goals Tobacco Program Goals: Complete smoking cessation. Attend education classes. Improve Knowledge Test score - Stage of Change Stages of Change:: Action - Learning Barriers Learning Barriers: Ready to Learn - Family Support Do you have family support?: Yes - Tobacco Use Tobacco Use: Non-smoker Do you use smokeless tobacco?: No - Intervention Smoking Cessation Referral:: No Individual Education/Counseling:: No Education Schedule Given:: Yes - Education Attended class for:: Treating Heart Disease, How The Heart Works, What it means to have Heart Disease, How Coronary Artery Disease is Diagnosed, Heart Procedures, What Heart Medications Do, Risk Factors & Modifications, Living an Active Life, Nutrition, Emotions & Heart Disease, Stress Management & Relaxation, Sleep Disorders & Heart Disease Psychosocial - Initial Assess - Target Goals Target Goals: Assess presence or absence of depression. Using a valid screening tool, maximizes coping skills. Positive support system - Stages of Change Stages of Change:: Action - Psychosocial Test Tool Used:: HANDS Depression Questionnaire - Intervention PS - Interventions: Yes Attend Stress Management Classes, Yes Uses Stress Management Skills, No Referral to Mental Health, No Referral to [facility] Case Management, No Referral to Physician - Education Gave educational materials for:: Coping techniques, Signs & symptoms of depression, Stress management, Relaxation techniques - Patient/Program Goal Preventative Medication(s):: Aspirin, FIONA inhibitor, Clopidogrel, Beta anika, Statin/lipid - PATIENT REPORTS BEING COMPLIANT WITH DAILY MEDICATIONS PRESCRIBED - Assistive Devices Fall Risk Assessed:: Yes Patient Health Questionnaire Initial Assessment 1. Little interest or pleasure in doing things: Not at all 2. Feeling down, depressed, or hopeless: Nearly every day 3. Trouble falling or staying asleep, or sleeping too much: Nearly every day 4. Feeling tired or having little energy: Nearly every day 5. Poor appetite or overeating: Several days 6. Feeling bad about yourself -- or that you are a failure or have let yourself or your family down: Nearly every day 7. Trouble concentrating on things, such as reading the newspaper or watching television: Nearly every day 8. Moving or speaking so slowly that other people could have noticed. Or the opposite - being so fidgety or restless that you have been moving around a lot more than usual: Not at all 9. Thoughts that you would be better off , or of hurting yourself in some way: Not at all How difficult have these problems made it for you to do your work, take care of things at home, or get along with other people?: Somewhat difficult Total Score: 16 KIRSTEN-Q SV Test - Statements CAD is a disease of the arteries in the heart: False Examples of risk factors for heart disease: True Angina is chest pain or discomfort: True The benefits of resistance training include: True Eating more meat and dairy products: False Anti-platelet medications such as aspirin are important: True The only effective way to manage stress: False An exercise warm-up slowly increases heart rate: True Prepared, processed foods usually have high sodium: True Depression is common after a heart attack: True The statin medications lower cholesterol: True To control blood pressure, lower the amount of sodium: True If someone gets chest discomfort during walking: False Transfats are partially hydrogenated vegetable oils: True Sleep apnea that is not treated increases the risk: False To control cholesterol, one should become a vegetarian: False Someone knows if he/she is exercising at the right level: True Diabetes cannot be prevented with exercise & health eating: False Stress is a large risk for heart attack: True A diet that can help lower blood pressure is rich in: True - Total Score Total Correct Responses: 20 Self-Efficacy Initial Assessment We would like to know how confident you are in doing certain activities. Please select your confidence level for:: Select your confidence level for the following using the scale 1-10 where 1 is not at all confident and 10 is totally confident. Your score is the average of all 6 responses. Fatigue: How confident are you that you can keep the fatigue caused by your disease from interfering with the things you want to do? Select Number: 2 Physical Discomfort or Pain: How confident are you that you can keep the physical discomfort or pain of your disease from interfering with the things you want to do? Select Number: 4 Emotional Distress: How confident are you that you can keep the emotional distress caused by your disease from interfering with the things you want to do? Select Number: 3 Other Symptoms or Health Problems: How confident are you that you can keep other symptoms or health problems from interfering with the things you want to do? Select Number: 5 Different Tasks and Activities: How confident are you that you can do the different tasks and activities needed to manage your health condition so as to reduce your need to see a doctor? Select Number: 8 Medication: How confident are you that you can do things other than just taking medication to reduce how much your illness affects your everyday life? Select Number: 8 Total Score:: 5 Nutrition Survey - Nutrition Survey Instructions Scoring Instructions: Scoring is as follows: Yes = 1 points. No = 0 point. Patient score that is >/=12 is considered to be at potential nutritional risk and could benefit from a referral to a registered dietitian. - Nutrition Survey Initial Have you lost >10 lbs over the past 2 months without trying?: No Are you following a special diet at home for diabetes, low fat, or low salt?: No Are you interested in meeting with a dietitian for help understanding your diet?: No Do you eat less than 3 meals a day?: No Do you eat fatty meats (soto, sausage, ribs, etc), fried foods, desserts, large amounts of salad dressings, margarine, butter, or cheese most days?: No Do you have food allergies? [Enter types in comment field]: No Do you eat in restaurants more than 3 times a week?: No Do you season food with salt, seasoning salt, or garlic salt?: No Do you used canned, boxed, frozen meals, or soups, seasoning packets?: Yes Total Score:: 1
[2019-03-02 08:02] VITALS: BP 124/70; PULSE 68; RESP 14; TEMP 37; O2SAT 96; BMI 33.9
[2019-03-02 08:23] VITALS: BP 124/70
== END ==
PROVIDERS: Family Provider Family Medicine; PCP Family Medicine; Referring Provider Internal Medicine Cardiovascular Disease; Visit Provider Internal Medicine Cardiovascular Disease
DX: E78.5 Hyperlipidemia, unspecified (principal); E66.9 Obesity, unspecified; Z95.5 Presence of coronary angioplasty implant and graft

== ENCOUNTER → 2019-04-02 08:33 | Outpatient (CLI) | payer OTHER, SELFPAY ==
[2019-02-18 14:01] VITALS: BMI 34.2
[2019-03-10 08:40] VITALS: BMI 35.2
[2019-04-02 10:56] LABS: Absolute Lymphocyte Count 2.04 X10^3/uL (0.83-4.51); Absolute Neutrophil Count 4.4 X10^3/uL (2.0-7.7); Basophil# 0.05 X10^3/uL; Basophil% 0.7 % (0-1); Eosinophil# 0.36 X10^3/uL; Eosinophils% 4.9 % (0-5); Hematocrit 50.9 % (40-54); Hemoglobin 17.1 g/dL (13.0-16.5); Lymphocyte # 2.04 X10^3/ul (4.0); Lymphocyte % 27.7 % (19-41); Mean Corp Hgb Conc 33.6 g/dL (32-36); Mean Corpuscular Hgb 30.8 pg (27.0-32.0); Mean Corpuscular Volume 91.7 fL (80-94); Mean Platelet Vol. 10.7 fl (6.2-12.0); Monocyte# 0.47 X10^3/uL; Monocyte% 6.4 % (0-10); NRBC Flagged by Analyzer 0 % (0-5); Neutrophil % 59.8 % (47-70); Platelet Count 191 K/mm3 (150-450); RBC Distribution Width SD 43.4 fl (35.1-43.9); Red Blood Count 5.55 M/mm3 (4.6-6.2); White Blood Count 7.4 K/mm3 (4.4-11.0)
[2019-04-02 11:44] LABS: ALB/GLOB Ratio 1.2 RATIO (0.9-2.4); AST(SGOT) 27 U/L (15-37); Alanine Aminotransfer ALT/SGPT 74 U/L (16-61); Albumin, Serum 4.5 g/dL (3.2-5.0); Alkaline Phosphatase 72 U/L (45-117); Anion Gap 8 (5-15); BUN 16 mg/dL (7-18); BUN/Creat Ratio 11.3 RATIO (10-20); Bilirubin, Direct 0.19 mg/dL (0.00-0.30); Calcium,Total 9.9 mg/dL (8.5-10.1); Chloride 107 mmol/L (98-107); Cholesterol 134 mg/dL (200); Creatinine, Serum 1.41 mg/dL (0.70-1.30); EST Glomerular Filtration Rate 56 mL/min (>60); Est Glom Filt Rate - Afr Amer 68 mL/min (>60); Globulin 3.6 g/dL (2.2-4.2); Glucose 119 mg/dL (74-106); High Density Lipoprotein 41 mg/dL; Magnesium 2.4 mg/dL (1.6-2.6); Potassium 4.7 mmol/L (3.5-5.1); Protein, Total 8.1 g/dL (6.4-8.2); Sodium Level 145 mmol/L (136-145); T4 Free Direct 0.99 ng/dL (0.76-1.46); Triglycerides 134 mg/dL; Very Low Density Lipoprotein 27 mg/dL (5-40)
== END ==
PROVIDERS: Family Provider Family Medicine; PCP Family Medicine; Visit Provider Physician Assistant Medical
DX: I48.91 Unspecified atrial fibrillation (principal); E78.00 Pure hypercholesterolemia, unspecified; E29.1 Testicular hypofunction; I25.118 Atherosclerotic heart disease of native coronary artery with other forms of angina pectoris; F32.9 Major depressive disorder, single episode, unspecified
CPT/HCPCS: 36415; 80053; 80061; 82248; 83735; 84439; 84443; 85025

== ENCOUNTER 2019-04-05 15:15 | Outpatient (RCR) | payer OTHER, SELFPAY ==
[2019-02-18 14:01] VITALS: BMI 34.2
[2019-03-02 08:02] VITALS: BMI 33.9
[2019-03-10 08:40] VITALS: BMI 35.2
--- NOTE | 2019-04-02 09:26 | PCM.CR.ITP ---
Exercise - Final/Discharge - Visit Date of Eval: 04/02/19 Session #:: 8 - completing his cr on 04/05/2019 due to insurance coverage. - Stages of Change Stages of Change:: Action - Physician Prescribed Exercise Modalities: Treadmill, Rower, Airdyne Frequency (days/week): 3 Duration (Minutes):: 30-45 Intensity: 60-80% age predicted maximum heart rate reserve METs - Progression: 0.5-1.0 MET, RPE 11-14 WEEK: 4 Target Heart Rate:: 110-142 max HR 157 - Hypertension Do any of the following apply?: Yes, Medication, Diet Resting Blood Pressure:: 150/80 - 132/82 lowest resting Peak Exercise Blood Pressure:: 178/88 - Intervention Home Exercise/Activity Goal:: Moderate Exercise 30 min/day x 5 days/wk - Education Goal Progress: Progressing - Exercise Program Goals Exercise Program Goals: Aerobic Activity >30 min Nutrition - Final Assessment - Program Goals Nutrition Program Goals: LDL <70. Total Cholesterol <200. HDL >45. Triglycerides <150. HgbA1C <7%. BMI <25 - Visit Date of Eval: 04/02/19 - Stages of Change Stages of Change:: Action - Lipids Total Cholesterol (mg/dL) Goal = less than 200 mg/dL: 0 - no more recent labs available - Diabetes Diabetes:: No - Weight Management Height: 6 ft Weight:: 251 lb - unchanged, patinet needs to reduce weight. Body Fat %:: 33.9 Goal % Body Fat:: 27 - Intervention Referral to dietitian:: No Referral to Diabetic Clinic:: No Will attend diet classes:: Yes - Education Education Goal Reached?: Yes Tobacco - Initial Assessment - Program Goals Tobacco Program Goals: Complete smoking cessation. Attend education classes. Improve Knowledge Test score - Learning Barriers Learning Barriers: Ready to Learn Tobacco - Final Assessment - Program Goals Tobacco Program Goals: Complete smoking cessation. Attend education classes. Improve Knowledge Test score - Stage of Change Stages of Change:: Action - Family Support Do you have family support?: No - Tobacco Use Tobacco Use: Non-smoker - Intervention Smoking Cessation Referral:: No Individual Education/Counseling:: No Education Schedule Given:: Yes - Education Education Goal Reached?: Yes - patient has completed CR in the past Psychosocial - Initial Assess - Target Goals Target Goals: Assess presence or absence of depression. Using a valid screening tool, maximizes coping skills. Positive support system - Psychosocial Test Tool Used:: HANDS Depression Questionnaire - Assistive Devices Fall Risk Assessed:: Yes Psychosocial - Final Assessmen - Target Goals Target Goals: Assess presence or absence of depression. Using a valid screening tool, maximizes coping skills. Positive support system - Stages of Change Stages of Change:: Action - Psychosocial Test Tool Used:: HANDS Depression Questionnaire - Intervention PS - Interventions: Yes Attend Stress Management Classes, Yes Uses Stress Management Skills, No Referral to Mental Health, No Referral to [facility] Case Management, No Referral to Physician - Education Education Goal Reached?: Yes - Patient/Program Goal Preventative Medication(s):: Aspirin, FIONA inhibitor, Clopidogrel, Beta anika, Statin/lipid - patient compliant with medications, however his resting BPs remain elevated. - Assistive Devices Assistive Devices:: None Fall Risk Assessed:: Yes Patient Health Questionnaire Discharge Assessment 1. Little interest or pleasure in doing things: Not at all 2. Feeling down, depressed, or hopeless: Not at all 3. Trouble falling or staying asleep, or sleeping too much: Not at all 4. Feeling tired or having little energy: Not at all 5. Poor appetite or overeating: Not at all 6. Feeling bad about yourself -- or that you are a failure or have let yourself or your family down: Not at all 7. Trouble concentrating on things, such as reading the newspaper or watching television: Not at all 8. Moving or speaking so slowly that other people could have noticed. Or the opposite - being so fidgety or restless that you have been moving around a lot more than usual: Not at all 9. Thoughts that you would be better off , or of hurting yourself in some way: Not at all Total Score: 0 KIRSTEN-Q SV Test - Statements CAD is a disease of the arteries in the heart: False Examples of risk factors for heart disease: True Angina is chest pain or discomfort: True The benefits of resistance training include: True Eating more meat and dairy products: False Anti-platelet medications such as aspirin are important: True The only effective way to manage stress: False An exercise warm-up slowly increases heart rate: True Prepared, processed foods usually have high sodium: True Depression is common after a heart attack: True The statin medications lower cholesterol: True To control blood pressure, lower the amount of sodium: True If someone gets chest discomfort during walking: False Transfats are partially hydrogenated vegetable oils: True Sleep apnea that is not treated increases the risk: False To control cholesterol, one should become a vegetarian: False Someone knows if he/she is exercising at the right level: True Diabetes cannot be prevented with exercise & health eating: False Stress is a large risk for heart attack: True A diet that can help lower blood pressure is rich in: True - Total Score Total Correct Responses: 20 Self-Efficacy Discharge Assessment We would like to know how confident you are in doing certain activities. Please select your confidence level for:: Select your confidence level for the following using the scale 1-10 where 1 is not at all confident and 10 is totally confident. Your score is the average of all 6 responses. Fatigue: How confident are you that you can keep the fatigue caused by your disease from interfering with the things you want to do? Select Number: 10 Physical Discomfort or Pain: How confident are you that you can keep the physical discomfort or pain of your disease from interfering with the things you want to do? Select Number: 10 Emotional Distress: How confident are you that you can keep the emotional distress caused by your disease from interfering with the things you want to do? Select Number: 10 Other Symptoms or Health Problems: How confident are you that you can keep other symptoms or health problems from interfering with the things you want to do? Select Number: 10 Different Tasks and Activities: How confident are you that you can do the different tasks and activities needed to manage your health condition so as to reduce your need to see a doctor? Select Number: 10 Medication: How confident are you that you can do things other than just taking medication to reduce how much your illness affects your everyday life? Select Number: 10 Total Score:: 10 Nutrition Survey - Nutrition Survey Instructions Scoring Instructions: Scoring is as follows: Yes = 1 points. No = 0 point. Patient score that is >/=12 is considered to be at potential nutritional risk and could benefit from a referral to a registered dietitian. - Nutrition Survey Discharge Have you lost >10 lbs over the past 2 months without trying?: No Are you following a special diet at home for diabetes, low fat, or low salt?: No Are you interested in meeting with a dietitian for help understanding your diet?: No Do you eat less than 3 meals a day?: No Do you eat fatty meats (soto, sausage, ribs, etc), fried foods, desserts, large amounts of salad dressings, margarine, butter, or cheese most days?: Yes Do you have food allergies? [Enter types in comment field]: No Do you eat in restaurants more than 3 times a week?: No Do you season food with salt, seasoning salt, or garlic salt?: Yes Do you used canned, boxed, frozen meals, or soups, seasoning packets?: No Total Score:: 2
[2019-04-02 09:32] VITALS: BP 150/80; BP 178/88
== END 2019-04-06 23:59 ==
LOC: CR 15:15
PROVIDERS: Family Provider Family Medicine; PCP Family Medicine; Referring Provider Internal Medicine Cardiovascular Disease; Visit Provider Internal Medicine Cardiovascular Disease
DX: I25.118 Atherosclerotic heart disease of native coronary artery with other forms of angina pectoris (principal); Z95.5 Presence of coronary angioplasty implant and graft
CPT/HCPCS: 93798

== ENCOUNTER → 2019-04-08 09:51 | Outpatient (CLI) | payer OTHER, SELFPAY ==
[2019-02-18 14:01] VITALS: BMI 34.2
[2019-03-10 08:40] VITALS: BMI 35.2
[2019-04-10 14:07] LABS: Testosterone, Free 3.51 ng/dL (5.00-21.00)
[2019-04-10 23:23] LABS: Testosterone, % Free 2.72 % (1.50-4.20); Testosterone, Total 129 ng/dL (264-916)
== END ==
LOC: LAB.FUTURE 04-12 08:26 → BFHLAB 04-12 10:49
PROVIDERS: Family Provider Family Medicine; PCP Family Medicine; Visit Provider Family Medicine
DX: E29.1 Testicular hypofunction (principal)
CPT/HCPCS: 36415; 84402; 84403

== ENCOUNTER → 2019-10-15 15:43 | Outpatient (CLI) | payer OTHER, SELFPAY ==
[2019-02-18 14:01] VITALS: BMI 34.2
[2019-03-10 08:40] VITALS: BMI 35.2
[2019-05-18 15:14] VITALS: BMI 32.5
[2019-10-15 17:03] LABS: Absolute Lymphocyte Count 2.24 X10^3/uL (0.83-4.51); Absolute Neutrophil Count 5.5 X10^3/uL (2.0-7.7); Basophil# 0.05 X10^3/uL; Basophil% 0.6 % (0-1); Eosinophil# 0.35 X10^3/uL; Hematocrit 49.3 % (40-54); Lymphocyte # 2.24 X10^3/ul (4.0); Lymphocyte % 25.6 % (19-41); Mean Corp Hgb Conc 34.5 g/dL (32-36); Mean Corpuscular Hgb 29.9 pg (27.0-32.0); Mean Corpuscular Volume 86.8 fL (80-94); Mean Platelet Vol. 10.1 fl (6.2-12.0); Monocyte# 0.55 X10^3/uL; Monocyte% 6.3 % (0-10); NRBC Flagged by Analyzer 0 % (0-5); Neutrophil # 5.51 X10^3/uL (2.7-7.7); Neutrophil % 62.8 % (47-70); Platelet Count 203 K/mm3 (150-450); RBC Distribution Width CV 12.7 % (11.6-14.6); RBC Distribution Width SD 39.8 fl (35.1-43.9); Red Blood Count 5.68 M/mm3 (4.6-6.2); White Blood Count 8.8 K/mm3 (4.4-11.0)
[2019-10-15 17:29] LABS: Bilirubin, Direct 0.19 mg/dL (0.00-0.30); Thyroid Stim Hormone (TSH) 1.42 uIU/mL (0.358-3.74)
[2019-10-15 17:29] LABS: AST(SGOT) 24 U/L (15-37); Alanine Aminotransfer ALT/SGPT 57 U/L (16-61); Albumin, Serum 4.4 g/dL (3.2-5.0); Alkaline Phosphatase 60 U/L (45-117); Bilirubin, Direct 0.22 mg/dL (0.00-0.30); Cholesterol 123 mg/dL (200); High Density Lipoprotein 30 mg/dL; Protein, Total 7.4 g/dL (6.4-8.2); Triglycerides 128 mg/dL; Very Low Density Lipoprotein 26 mg/dL (5-40)
[2019-10-15 17:35] LABS: Hemoglobin A1c 5.8 % (3.8-5.6)
== END ==
PROVIDERS: Physician Assistant Medical; Family Provider Family Medicine; PCP Family Medicine; Visit Provider Family Medicine
DX: E29.1 Testicular hypofunction (principal); E78.00 Pure hypercholesterolemia, unspecified; I48.91 Unspecified atrial fibrillation; R94.5 Abnormal results of liver function studies; N18.9 Chronic kidney disease, unspecified; R73.01 Impaired fasting glucose; I12.9 Hypertensive chronic kidney disease with stage 1 through stage 4 chronic kidney disease, or unspecified chronic kidney disease
CPT/HCPCS: 36415; 80061; 80076; 82248; 83036; 84403; 84443; 85025

== ENCOUNTER → 2020-02-07 14:50 | Outpatient (CLI) | payer OTHER, SELFPAY ==
[2019-02-18 14:01] VITALS: BMI 34.2
[2020-02-07 14:04] VITALS: BMI 33.7
== END ==
PROVIDERS: PCP Family Medicine; Referring Provider Nurse Practitioner Family; Visit Provider Nurse Practitioner Family
DX: R07.9 Chest pain, unspecified (principal); I25.118 Atherosclerotic heart disease of native coronary artery with other forms of angina pectoris; Z95.5 Presence of coronary angioplasty implant and graft
CPT/HCPCS: 36415; 84484

== ENCOUNTER → 2020-02-10 05:48 | Outpatient (CLI) | payer OTHER, SELFPAY ==
[2019-02-18 14:01] VITALS: BMI 34.2
[2020-02-07 14:04] VITALS: BMI 33.7
--- NOTE | 2020-02-10 13:13 | STRESSREP_ITS ---
Stress Test Report Exercise myocardial perfusion stress test. 54-year-old man with a history of coronary angioplasty with a drug-eluting stent to the mid left anterior descending artery. Stress protocol: Resting EKG demonstrates normal sinus rhythm with a rate of 73 bpm normal intervals are noted resting blood pressure is 128/86 mmHg. The patient exercis ed according to the regular Tacho protocol for a total duration of 8 minutes. The maximum heart rate attained was 157 bpm which was 94% of max impacted heart rate the maximum workload was 10.1 metabolic equivalents. Patient maintained sinus rhythm throughout the recording. At rest there were no ST or T wave changes noted to suggest ischemia at peak exercise upsloping ST changes only were noted with no meet the criteria for ischemia. The test was terminated due to dyspnea. The peak blood pressure 166/90 mmHg. Myocardial perfusion protocol. 14.6 mCi of technetium 99m sestamibi was injected at rest. The patient exercised according to regular Tacho protocol for 8 minutes at peak exercise 44.7 mCi of technetium 99m sestamibi was injected stress images were obtained stress and rest images were reconstructed and compared in the short axis vertical long horizontal long axis. Gated images were also obtained Perfusion SPECT analysis: Review of the stress images demonstrate normal uptake of tracer noted in all areas of the myocardium, except for a small portion of the apex the apical septal wall and apical lateral wall. The resting images demonstrate a similar pattern. The above is suggestive of a previous infarct involving the apex and the septum in the apical lateral wall. No reversibility is noted to suggest ischemia. Gated SPECT analysis: The gated ejection fraction is 52%. 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 No ischemia noted.
== END ==
PROVIDERS: PCP Family Medicine; Referring Provider Nurse Practitioner Family; Visit Provider Nurse Practitioner Family
DX: R07.9 Chest pain, unspecified (principal); I25.118 Atherosclerotic heart disease of native coronary artery with other forms of angina pectoris; Z95.5 Presence of coronary angioplasty implant and graft
CPT/HCPCS: 78452; 93017; A9500; A4216

== ENCOUNTER → 2020-03-27 16:02 | Outpatient (CLI) | payer OTHER, SELFPAY ==
[2019-02-18 14:01] VITALS: BMI 34.2
[2020-02-07 14:04] VITALS: BMI 33.7
[2020-03-27 18:22] LABS: Creatinine, Serum 1.12 mg/dL (0.70-1.30); EST Glomerular Filtration Rate 73 mL/min (>60); Est Glom Filt Rate - Afr Amer 88 mL/min (>60)
== END ==
PROVIDERS: PCP Family Medicine; Referring Provider Otolaryngology; Visit Provider Otolaryngology
DX: H93.13 Tinnitus, bilateral (principal)
CPT/HCPCS: 36415; 82565

== ENCOUNTER → 2020-04-10 06:24 | Outpatient (CLI) | payer OTHER, SELFPAY ==
[2019-02-18 14:01] VITALS: BMI 34.2
[2020-02-07 14:04] VITALS: BMI 33.7
--- NOTE | 2020-04-10 06:38 | MRI_ITS ---
STUDY: MRI BRAIN WITH AND WITHOUT CONTRAST (ATTENTION INTERNAL AUDITORY CANALS - I.A.C.''s) REASON FOR EXAM: Male, 54 years old. bilat tinnitus TECHNIQUE: Standardized multiplanar fat and water weighted pulse sequences were obtained. 20ML IV Dotarem was administered for the contrast portion of the examination. COMPARISON: None. FINDINGS: Normal bilateral temporal bones. Normal bilateral internal auditory canals. There is no demonstrated intracanalicular or cisternal vestibular schwannoma (acoustic neuroma). There is no enhancement of the bilateral VIIth or VIIIth cranial nerves. Normal bilateral cochlea, vestibules and semicircular canals. Normal size of the ventricles and extra-axial spaces for the patient''s age. Normal white matter tracts of the supratentorial brain. There is no evidence for recent intracranial ischemia or other cause of cytotoxic edema on diffusion weighted imaging (DWI). Normal bilateral basal ganglia. Normal thalami. Normal flow voids within the major intracranial circulation suggesting patency by spin echo criteria. Normal venous enhancement. There is no enhancing intra-axial or extra-axial abnormality. There is no extra-axial fluid accumulation. Normal sella turcica, pituitary gland, infundibular stalk, optic chiasm and hypothalamus. Normal tectal plate and pineal gland. Normal midbrain, cristhian and medulla. Normal cerebellum. Normal basal cisterns. No demonstrated orbital abnormality, within the constraints of a routine brain study. Mucosal thickening of the sinuses with air-fluid levels in the left maxillary and right sphenoid sinus consistent with acute on chronic sinusitis. Furthermore, there is a 1.5 cm oval area of T2 isointensity within the left ethmoid air cells worrisome for polyp or other mass. Normal calvarium and skull base. Normal visualized soft tissue structures. Normal visualized upper cervical spine. MRI/Brain W/WO Contrast IMPRESSION: 1. Normal unenhanced and enhanced MRI of the bilateral internal auditory canals (I.A.C''s). No MR evidence of vestibular schwannoma (acoustic neuroma). 2. Acute on chronic pansinusitis with a 1.5 cm mass in the left ethmoid air cells worrisome for polyp or tumor. Clinical correlation is recommended. Electronically Signed: Martínez Duffy MD at 8:18 EST Tel , Service support ,
== END ==
PROVIDERS: PCP Family Medicine; Referring Provider Otolaryngology; Visit Provider Otolaryngology
DX: H93.13 Tinnitus, bilateral (principal)
CPT/HCPCS: 70553; A9575

== ENCOUNTER 2020-08-18 09:29 | Emergency (ER) | payer OTHER, SELFPAY ==
[2019-02-18 14:01] VITALS: BMI 34.2
[2020-07-04 16:04] VITALS: BMI 34.5
[2020-08-18 09:31] VITALS: BP 143/84; PULSE 83; RESP 15; TEMP 36.4; O2SAT 99; BMI 34.6
[2020-08-18 09:34] VITALS: BP 143/84; PULSE 84; RESP 19; TEMP 36.4; O2SAT 99
--- NOTE | 2020-08-18 09:39 | RAD_ITS ---
STUDY: X-RAY CHEST REASON FOR EXAM: Male, 55 years old. Chest pain TECHNIQUE: Single AP portable view of the chest. COMPARISON: Comparison is made with prior study dated 02/12/2019. FINDINGS: EKG electrodes are seen. Stable elevation of the right hemidiaphragm. Minimal increased linear markings at the lung bases suggestive linear atelectasis. There is no demonstrated pleural abnormality. Normal size heart. Normal mediastinum and amy. Normal visualized pulmonary arteries. Normal visualized aortic arch and descending thoracic aorta. Normal visualized thoracic spine. Normal visualized ribs, clavicles, and shoulders. There is no demonstrated abnormality of the visualized soft tissue structures of the upper abdomen. RAD/Chest 1 View (Portable) IMPRESSION: Minimal increased markings at the lung bases suggestive of linear atelectasis. Electronically Signed: Simón Wynn MD at 10:19 EDT , Service support ,
--- NOTE | 2020-08-18 09:39 | EKG12_ITS ---
Test Reason : CP Blood Pressure : / mmHG Vent. Rate : 079 BPM Atrial Rate : 079 BPM P-R Int : 142 ms QRS Dur : 096 ms QT Int : 360 ms P-R-T Axes : 031 002 068 degrees QTc Int : 412 ms Normal sinus rhythm Septal infarct , age undetermined Abnormal ECG Confirmed by SHELL ESPINOSA, ELDON ([id number]), editor school photograph AMOR LOBO ([id number]) on 08/21/2020 2:57:02 PM Referred By: BRET Confirmed By:ELDON GOFF MD
--- NOTE | 2020-08-18 09:40 | EX.ED.DYSGE1 ---
HPI History of Present Illness Chief Complaint: Chest Pain Informant: patient Narrative Narrative: 55-year-old male with prior history of coronary artery disease status post stenting to the LAD presents with fatigue increased heart rate and chest pain. Patient states that recently has noted that his resting heart rate which is typically been in the 50s has increased 20-30 points at rest. He states that he has noticed that he is easily fatigued. He states that yesterday at work he overexerted himself more than normal and got his heart rate up to around 160 and he began to have what he describes as a sharp intermittent pain in his chest. He states that he cannot reproduce it except by exerting. Walking into the emergency room up a hill he stated he felt more short of breath than normal. He also noted that he has coughed about 3 times this morning. He states he is tested positive for Covid in the past and has been vaccinated. Patient had a stress test in the fall 2019 that was negative for ischemia. He followed up with cardiology at the end of June. [facility] Medical History (Updated 08/18/20 @ 10:[address] Colten Drew, ) Acute ST elevation myocardial infarction (STEMI) Atherosclerotic heart disease of [place] coronary artery with other forms of angina pectoris Chronic back pain History of ST elevation myocardial infarction (STEMI) (11/19/16) Hyperlipidemia Ischemic cardiomyopathy Obesity (BMI 30.0-34.9) Old anteroseptal myocardial infarction (11/19/16) Pericarditis Supraventricular tachycardia Testosterone deficiency Tinnitus, bilateral Home Medications aspirin 81 mg PO DAILY@0800 tab 11/23/16 [Rx Last Taken Unknown] coenzyme Q10 100 mg capsule 100 mg PO DAILY 10/26/18 [History Last Taken Unknown] arginine (L-arginine) 500 mg capsule 500 mg PO DAILY cap 02/02/19 [History Last Taken Unknown] cholecalciferol (vitamin D3) 125 mcg (5,000 unit) capsule 5,000 unit PO DAILY 02/02/19 [History Last Taken Unknown] clopidogrel 75 mg tablet 75 mg PO DAILY #90 tab 01/03/20 [Rx Last Taken Unknown] rosuvastatin 40 mg tablet 40 mg PO DAILY #90 tab 01/03/20 [Rx Last Taken Unknown] nitroglycerin 0.4 mg sublingual tablet 0.4 mg SUBLINGUAL Q5-15M PRN #25 tab 02/07/20 [Rx Last Taken Unknown] omeprazole 20 mg capsule,delayed release 20 mg PO .QOD cap 07/04/20 [History Last Taken Unknown] oxycodone myristate 9 mg capsule sprinkle extended release 12 hr(DON'T CRUSH) 9 mg PO BID each 07/04/20 [History Last Taken Unknown] testosterone undecanoate 750 mg IM .weekly ml 07/04/20 [History Last Taken Unknown] Allergy/AdvReac Type Severity Reaction Status Date / Time lisinopril Allergy Angioedema Verified 02/07/20 14:02 losartan [From Cozaar] Allergy Angioedema Verified 02/07/20 14:02 ENVIRONMENTAL Allergy Other Uncoded 04/08/18 19:02 Family History Mother Cancer Father Cancer Surgical History H/O nasal polypectomy History of back surgery History of coronary artery stent placement (02/18/19) History of left heart catheterization (12/16/16) Social History Smoking Status: Former smoker alcohol intake: current alcohol intake frequency: a few times a month caffeine: Yes Type: coffee Number of servings: 3 ROS ROS ED Constitutional Constitutional ED: Reports other Details: Fatigue Eyes Eyes: Denies change in vision or diplopia ENT ENT ED: Denies ear pain, rhinorrhea or sore throat Cardiovascular Cardiovascular: Reports chest pain and other Details: Increased heart rate ; Denies orthopnea, palpitations or racing heartbeat Respiratory/Chest Respiratory/Chest: Reports cough and dyspnea; Denies orthopnea Gastrointestinal Gastrointestinal: Denies abdominal pain, diarrhea, nausea or vomiting Genitourinary Genitourinary ED: Denies dysuria, hematuria or urinary frequency Musculoskeletal Musculoskeletal: Denies arthralgias or myalgias Integumentary Denies abscess or rash Neurologic Neurologic: Denies headache(s) or weakness Psychiatric Psychiatric: Denies anxiety, depression, suicidal ideation or suicidal thoughts Endocrine Endocrinology: Denies polydipsia, polyphagia or polyuria Allergic/Immunologic Allergic/Immunologic ED: Denies mouth swelling, tongue swelling or urticaria EXAM Physical Exam Const Vital Signs: 08/18/20 09:31 08/18/20 09:34 08/18/20 09:46 Temperature 97.6 F L 97.6 F L Temperature Source Temporal Temporal Pulse Rate 83 84 Respiratory Rate 15 19 H Respiratory Effort Non-Labored Short of Breath Blood Pressure 143/84 H 143/84 H Blood Pressure Mean 103 103 Pulse Ox 99 99 Oxygen Delivery Method Room Air Room Air Positive well nourished and well developed General Appearance ED: well developed HEENT Reports normocephalic, head/scalp atraumatic and moist mucous membranes Eyes PERRL and EOMs intact bilaterally Neck no lymphadenopathy, supple and no JVD Resp normal respiratory effort and clear to auscultation bilaterally Cardio regular rate, regular rhythm and no murmurs GI normal to inspection, nondistended, normoactive bowel sounds and non-tender Palpation: soft Back/Spine no CVA tenderness and normal ROM Extremity normal to inspection General Extremety ED: Negative for edema General Extremity: Negative for edema Neuro oriented x3 and CN's II-XII intact bilaterally Sensorium / Orientation: alert Motor Exam: strength 5/5 throughout Psych mental status grossly normal Mood & Affect: Negative for depressed or tearful Skin no rashes or lesions noted and no wounds MDM MDM MDM Narrative Medical decision making narrative: My interpretation of the patient's chest x-ray is atelectatic changes normal mediastinal silhouette. Patient's troponin is in the normal range. EKG shows no acute changes. I discussed the case with cardiology who recommends admission for stress testing. I discussed this with the patient who states that he would prefer not to be admitted and would like to have a stress test as an outpatient. He appears to have the capacity to make this decision and presents a reasonable argument against admission. 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 Lab Data Attestation: I reviewed the patient's lab results. Labs: Laboratory Results - last 24 hr 08/18/20 08/18/20 09:35 09:35 WBC 8.1 RBC 5.99 Hgb 17.3 H Hct 51.6 MCV 86.1 MCH 28.9 MCHC 33.5 RDW Std Deviation 39.8 RDW Coeff of [place]erv[place] 12.7 Plt Count 207 MPV 9.5 Immature Gran % (Auto) 0.500 Neut % (Auto) 54.9 Lymph % (Auto) 30.3 [place] % (Auto) 6.5 Eos % (Auto) 6.6 H Baso % (Auto) 1.2 H Absolute Neuts (auto) 4.4 Absolute Lymphs (auto) 2.44 Nucleated RBC % 0 Sodium 137 Potassium 3.7 Chloride 104 Carbon Dioxide 30.0 Anion Gap 3 L BUN 15 Creatinine 1.31 H Estim Creat Clear Calc 70.75 Est GFR (MDRD) Af Amer 73 Est GFR (MDRD) Non-Af 61 BUN/Creatinine Ratio 11.5 Glucose 148 H Calcium 9.3 Troponin I 0.023 Radiography Diagnostic Testing: Radiology Impression Chest X-Ray 08/18/20 09:39 IMPRESSION: Minimal increased markings at the lung bases suggestive of linear atelectasis. Electronically Signed: Simón Wynn MD at 10:19 EDT , Service support , EKG Initial EKG: Attestation: I personally reviewed and interpreted this EKG as follows: Comments: EKG shows a normal sinus rhythm at a rate of 79 with no concerning features of ACS or ectopy noted Discharge Plan Triage Chief Complaint: Chest Pain ED Provider: Colten Drew Dx/Rx/DC Orders Clinical Impression: Chest pain Instructions: ED Chest Pain, Uncertain Cause Prescriptions: No Action coenzyme Q10 [Co Q-10] 100 mg capsule 100 mg PO DAILY RF: 0 arginine (L-arginine) 500 mg capsule 500 mg PO DAILY RF: 0 cholecalciferol (vitamin D3) 5,000 unit capsule 5,000 unit PO DAILY RF: 0 clopidogrel 75 mg tablet 75 mg PO DAILY Qty: 90 RF: 3 rosuvastatin [Crestor] 40 mg tablet 40 mg PO DAILY Qty: 90 RF: 3 testosterone undecanoate 750 mg/3 mL (250 mg/mL) solution 750 mg IM .weekly RF: 0 omeprazole 20 mg capsule,delayed release(DR/EC) 20 mg PO .QOD RF: 0 nitroglycerin 0.4 mg tablet, sublingual 0.4 mg SUBLINGUAL Q5-15M PRN (Reason: chest pain) Qty: 25 RF: 4 aspirin 81 MG tablet 81 mg PO DAILY@0800 RF: 0 oxycodone myristate 9 mg cap,sprinkl,ER12hr(DONT CRUSH) 9 mg PO BID RF: 0 Primary Care Provider: Oneal Parker Referrals: Robert Parnell MD [STAFF PHYSICIAN] - As soon as possible Oneal Parker MD [Primary Care Provider] - Disposition Disposition: Against Medical Advice Capacity Capacity Assessment Tool Can the patient make a choice & communicate that choice?: Yes Can the patient understand benefits, risks and alternatives?: Yes Can the patient make a logical, rational choice?: Yes Is the choice the patient makes consistent w/ their values?: Yes Is there an impending, emergent risk to the patient?: Unable to Determine Does the patient have an Advance Directive?: No Is there a Surrogate Available?: No i.e. HCPOA: No i.e. close relative (spouse, child, parent, sibling)?: No
[2020-08-18 09:50] LABS: Absolute Lymphocyte Count 2.44 X10^3/uL (0.83-4.51); Absolute Neutrophil Count 4.4 X10^3/uL (2.0-7.7); Basophil% 1.2 % (0-1); Eosinophil# 0.53 X10^3/uL; Eosinophils% 6.6 % (0-5); Hematocrit 51.6 % (40-54); Hemoglobin 17.3 g/dL (13.0-16.5); Lymphocyte # 2.44 X10^3/ul (0.83-4.51); Lymphocyte % 30.3 % (19-41); Mean Corp Hgb Conc 33.5 g/dL (32-36); Mean Corpuscular Hgb 28.9 pg (27.0-32.0); Mean Corpuscular Volume 86.1 fL (80-94); Mean Platelet Vol. 9.5 fl (6.2-12.0); Monocyte# 0.52 X10^3/uL; Monocyte% 6.5 % (0-10); NRBC Flagged by Analyzer 0 % (0-5); Neutrophil # 4.43 X10^3/uL (2.7-7.7); Neutrophil % 54.9 % (47-70); Platelet Count 207 K/mm3 (150-450); RBC Distribution Width CV 12.7 % (11.6-14.6); RBC Distribution Width SD 39.8 fl (35.1-43.9); Red Blood Count 5.99 M/mm3 (4.6-6.2); White Blood Count 8.1 K/mm3 (4.4-11.0)
[2020-08-18 10:10] LABS: Anion Gap 3 (5-15); BUN 15 mg/dL (7-18); BUN/Creat Ratio 11.5 RATIO (10-20); Calcium,Total 9.3 mg/dL (8.5-10.1); Chloride 104 mmol/L (98-107); Creatinine, Serum 1.31 mg/dL (0.70-1.30); EST Glomerular Filtration Rate 61 mL/min (>60); Est Glom Filt Rate - Afr Amer 73 mL/min (>60); Estimated Creatinine Clearance 70.75 ml/min; Glucose 148 mg/dL (74-106); Potassium 3.7 mmol/L (3.5-5.1); Sodium Level 137 mmol/L (136-145)
[2020-08-18 10:37] VITALS: BP 132/87; PULSE 67; RESP 16
[2020-08-18 11:59] LABS: D-Dimer Quantitative (DVT/PE) <= 0.27 FEU/ug/m (0.27-0.49)
== END 2020-08-18 11:23 | disposition left against medical advice (07) ==
PROVIDERS: Emergency Provider Emergency Medicine; PCP Family Medicine
DX: R07.9 Chest pain, unspecified (principal); Z87.891 Personal history of nicotine dependence; Z95.5 Presence of coronary angioplasty implant and graft; Z79.82 Long term (current) use of aspirin; E66.9 Obesity, unspecified; E78.5 Hyperlipidemia, unspecified; G89.29 Other chronic pain; I25.2 Old myocardial infarction; I25.5 Ischemic cardiomyopathy; I47.1 Supraventricular tachycardia; I25.118 Atherosclerotic heart disease of native coronary artery with other forms of angina pectoris
CPT/HCPCS: 71045; 80048; 84484; 85025; 85379; 93005; 99283; A4216

== ENCOUNTER → 2020-10-17 16:04 | Outpatient (CLI) | payer OTHER, SELFPAY ==
[2019-02-18 14:01] VITALS: BMI 34.2
[2020-10-17 17:43] LABS: Absolute Lymphocyte Count 2.18 X10^3/uL (0.83-4.51); Absolute Neutrophil Count 5.5 X10^3/uL (2.0-7.7); Basophil# 0.08 X10^3/uL; Basophil% 0.9 % (0-1); Eosinophil# 0.36 X10^3/uL; Eosinophils% 4.1 % (0-5); Hematocrit 51.2 % (40-54); Hemoglobin 17.3 g/dL (13.0-16.5); Lymphocyte # 2.18 X10^3/ul (0.83-4.51); Lymphocyte % 25.1 % (19-41); Mean Corp Hgb Conc 33.8 g/dL (32-36); Mean Corpuscular Hgb 29.1 pg (27.0-32.0); Mean Corpuscular Volume 86.2 fL (80-94); Monocyte% 5.8 % (0-10); NRBC Flagged by Analyzer 0 % (0-5); Neutrophil # 5.51 X10^3/uL (2.7-7.7); Neutrophil % 63.4 % (47-70); Platelet Count 218 K/mm3 (150-450); RBC Distribution Width CV 12.8 % (11.6-14.6); Red Blood Count 5.94 M/mm3 (4.6-6.2); White Blood Count 8.7 K/mm3 (4.4-11.0)
[2020-10-17 18:01] LABS: Erythrocyte Sedimentation Rate 1 mm/hr (0-20)
[2020-10-17 18:10] LABS: ALB/GLOB Ratio 1.2 RATIO (0.9-2.4); AST(SGOT) 27 U/L (15-37); Alanine Aminotransfer ALT/SGPT 51 U/L (16-61); Albumin, Serum 4.1 g/dL (3.2-5.0); Alkaline Phosphatase 64 U/L (45-117); Anion Gap 8 (5-15); BUN 9 mg/dL (7-18); CPK Total, Creatine Kinase 121 U/L (39-308); CRP < 2.90 mg/L (0.0-3.0); Calcium,Total 8.7 mg/dL (8.5-10.1); Chloride 106 mmol/L (98-107); Creatinine, Serum 1.12 mg/dL (0.70-1.30); EST Glomerular Filtration Rate 73 mL/min (>60); Est Glom Filt Rate - Afr Amer 88 mL/min (>60); Globulin 3.3 g/dL (2.2-4.2); Glucose 96 mg/dL (74-106); Protein, Total 7.4 g/dL (6.4-8.2); Rheumatoid Factor < 10.0 IU/mL (<15); Sodium Level 139 mmol/L (136-145)
[2020-10-20 08:15] LABS: CCP IgG Antibodies 7 units (0-19)
== END ==
PROVIDERS: PCP Family Medicine; Referring Provider Family Medicine; Visit Provider Family Medicine
DX: M60.9 Myositis, unspecified (principal); M06.4 Inflammatory polyarthropathy; R53.83 Other fatigue
CPT/HCPCS: 36415; 80053; 82550; 85025; 85652; 86038; 86140; 86200; 86431

== ENCOUNTER → 2020-12-14 15:34 | Outpatient (CLI) | payer OTHER, SELFPAY ==
[2019-02-18 14:01] VITALS: BMI 34.2
--- NOTE | 2020-12-14 15:36 | RAD_ITS ---
STUDY: X-RAY CHEST REASON FOR EXAM: Male, 55 years old. BLOW TO LEFT CHEST WALL TECHNIQUE: PA and lateral views of the chest. COMPARISON: 08/18/2020 FINDINGS: The lungs are clear and expanded. There is no demonstrated pleural abnormality. Normal size heart. Normal mediastinum and amy. Normal visualized pulmonary arteries. Normal visualized aortic arch and descending thoracic aorta. Normal visualized thoracic spine. Normal visualized ribs, clavicles, and shoulders. There is no demonstrated abnormality of the visualized soft tissue structures of the upper abdomen. RAD/Chest PA and Lateral IMPRESSION: Normal x-ray examination of the chest. Electronically Signed: Kam Jacobs DO at 22:49 EDT Tel , Service support ,
== END ==
PROVIDERS: PCP Family Medicine; Referring Provider Family Medicine; Visit Provider Family Medicine
DX: S20.212A Contusion of left front wall of thorax, initial encounter (principal)
CPT/HCPCS: 71046

== ENCOUNTER 2021-07-09 13:54 | Emergency (ER) | payer OTHER, SELFPAY ==
[2019-02-18 14:01] VITALS: BMI 34.2
[2021-07-09 13:55] VITALS: BP 166/102; PULSE 84; RESP 13; TEMP 36.5; O2SAT 98; BMI 34.7
--- NOTE | 2021-07-09 14:18 | RAD_ITS ---
STUDY: X-RAY CHEST REASON FOR EXAM: Male, 55 years old. Chest pain TECHNIQUE: Single AP portable view of the chest. COMPARISON: Comparison is made with prior study dated 12/14/2020. FINDINGS: Elevation of the right hemidiaphragm. There is no demonstrated pleural abnormality. There is borderline cardiomegaly. Normal mediastinum and amy. Normal visualized pulmonary arteries. Normal visualized aortic arch and descending thoracic aorta. Normal visualized thoracic spine. Normal visualized ribs, clavicles, and shoulders. There is no demonstrated abnormality of the visualized soft tissue structures of the upper abdomen. RAD/Chest 1 View (Portable) IMPRESSION: Normal x-ray examination of the chest. Electronically Signed: Simón Wynn MD at 14:52 EDT ,
--- NOTE | 2021-07-09 14:18 | EKG12_ITS ---
Test Reason : Blood Pressure : / mmHG Vent. Rate : 073 BPM Atrial Rate : 073 BPM P-R Int : 150 ms QRS Dur : 096 ms QT Int : 356 ms P-R-T Axes : 042 018 061 degrees QTc Int : 392 ms Normal sinus rhythm with sinus arrhythmia Septal infarct (cited on or before 20-NOV-2016) Abnormal ECG Confirmed by SHELL ESPINOSA, ELDON ([id number]), newspaper editor managing AYSE BERGER ([id number]) on 07/12/2021 11:26:57 AM Referred By: Confirmed By:ELDON GOFF MD
[2021-07-09 14:28] LABS: Absolute Lymphocyte Count 2.74 X10^3/uL (0.83-4.51); Absolute Neutrophil Count 6.7 X10^3/uL (2.0-7.7); Basophil# 0.09 X10^3/uL; Basophil% 0.8 % (0-1); Eosinophil# 0.48 X10^3/uL; Eosinophils% 4.5 % (0-5); Lymphocyte # 2.74 X10^3/ul (0.83-4.51); Lymphocyte % 25.7 % (19-41); Mean Corp Hgb Conc 34.2 g/dL (32-36); Mean Corpuscular Hgb 30.2 pg (27.0-32.0); Mean Corpuscular Volume 88.3 fL (80-94); Mean Platelet Vol. 10.4 fl (6.2-12.0); Monocyte# 0.57 X10^3/uL; Monocyte% 5.3 % (0-10); NRBC Flagged by Analyzer 0 % (0-5); Neutrophil # 6.74 X10^3/uL (2.7-7.7); Neutrophil % 63.1 % (47-70); Platelet Count 207 K/mm3 (150-450); RBC Distribution Width CV 12.7 % (11.6-14.6); RBC Distribution Width SD 41.6 fl (35.1-43.9); White Blood Count 10.7 K/mm3 (4.4-11.0)
--- NOTE | 2021-07-09 14:28 | ED.VIS.CHEST ---
HPI History of Present Illness Chief Complaint: Chest Pain Informant: patient Onset/Context/Timing Onset: Today Activity at onset: gradual Quality: Positive for Aching Location: Substernal Current Severity: Mild Maximum Severity: Moderate Narrative Narrative: Patient presents secondary to chest pain. He describes an aching sensation in his upper chest that started between 4 and 6 AM this morning. It is remained constant throughout the day. He has had some mild shortness of breath. He has had prior [place] and has 3 stents. He believes his last stress test or heart cath was approximate 3 years ago. [facility] Medical History (Updated 07/09/21 @ 16:[address] Ankita May MD) Acute ST elevation myocardial infarction (STEMI) Atherosclerotic heart disease of [place] coronary artery with other forms of angina pectoris Chronic back pain History of ST elevation myocardial infarction (STEMI) (11/19/16) Hyperlipidemia Ischemic cardiomyopathy Obesity (BMI 30.0-34.9) Old anteroseptal myocardial infarction (11/19/16) Pericarditis Supraventricular tachycardia Testosterone deficiency Tinnitus, bilateral Home Medications aspirin 81 mg PO DAILY@0800 tab 11/23/16 [Rx Last Taken Unknown] coenzyme Q10 100 mg capsule 100 mg PO DAILY 10/26/18 [History Last Taken Unknown] arginine (L-arginine) 500 mg capsule 500 mg PO DAILY cap 02/02/19 [History Last Taken Unknown] cholecalciferol (vitamin D3) 125 mcg (5,000 unit) capsule 5,000 unit PO DAILY 02/02/19 [History Last Taken Unknown] nitroglycerin 0.4 mg sublingual tablet 0.4 mg SUBLINGUAL Q5-15M PRN #25 tab 02/07/20 [Rx Last Taken Unknown] clopidogrel 75 mg tablet 75 mg PO DAILY #90 tab 01/17/21 [Rx Last Taken Unknown] rosuvastatin 40 mg tablet 40 mg PO DAILY #90 tab 01/17/21 [Rx Last Taken Unknown] omeprazole 20 mg capsule,delayed release 20 mg PO DAILY cap 04/19/21 [History Last Taken Unknown] testosterone undecanoate 750 mg IM QWEEK ml 04/19/21 [History Last Taken Unknown] Allergy/AdvReac Type Severity Reaction Status Date / Time lisinopril Allergy Angioedema Verified 04/19/21 15:58 losartan [From Cozaar] Allergy Angioedema Verified 04/19/21 15:58 ENVIRONMENTAL Allergy Other Uncoded 04/19/21 15:58 Family History Mother Cancer Father Cancer Surgical History H/O nasal polypectomy History of back surgery History of coronary artery stent placement (02/18/19) History of left heart catheterization (12/16/16) Social History Smoking Status: Former smoker how long ago did patient quit smokin.5 years ago alcohol intake: current alcohol intake frequency: a few times a month substance use type: does not use caffeine: Yes Type: coffee Number of servings: 3 ROS ROS ED Constitutional Constitutional ED: Denies chills or fever(s) Eyes Eyes: Denies change in vision ENT ENT ED: Denies sore throat Cardiovascular Cardiovascular: Reports chest pain Respiratory/Chest Respiratory/Chest: Reports dyspnea; Denies cough Gastrointestinal Gastrointestinal: Denies abdominal pain, nausea or vomiting Genitourinary Genitourinary ED: Denies dysuria Musculoskeletal Musculoskeletal: Denies back pain or neck pain Integumentary Denies rash Neurologic Neurologic: Denies headache(s) or weakness Allergic/Immunologic Allergic/Immunologic ED: Denies urticaria EXAM Physical Exam Const Vital Signs: 07/09/21 13:55 07/09/21 14:22 07/09/21 15:05 Temperature 97.7 F L Temperature Source Temporal Pulse Rate 84 73 Respiratory Rate 13 17 Blood Pressure 166/102 H 138/90 H Blood Pressure Mean 123 106 Pulse Ox 98 96 Oxygen Delivery Method Room Air Room Air Room Air Positive well nourished and well developed General Appearance ED: well developed HEENT normocephalic and atraumatic Eyes PERRL and EOMs intact bilaterally Neck supple Chest Wall inspection of chest normal and palpation of chest normal Resp normal respiratory effort Effort and Inspection: respiratory distress Cardio regular rate and regular rhythm GI normal to inspection, nondistended, normoactive bowel sounds, soft to palpation and non-tender Extremity normal to inspection Neuro oriented x3 Sensorium / Orientation: awake and alert Psych mental status grossly normal Skin no rashes or lesions noted Heart Score History: Moderately Suspicious ECG: Normal Age: >45 - <65 years Risk Factors: >/= 3 Risk Factors or History of CAD Troponin: </= Normal Limit Score: 4 MDM MDM MDM Narrative Medical decision making narrative: Patient had taken 1 baby aspirin today. He was given 3 additional baby aspirin on arrival. EKG, chest x-ray, lab work obtained. Lab Data Attestation: I reviewed the patient's lab results. Labs: Laboratory Results - last 24 hr 07/09/21 07/09/21 07/09/21 13:55 13:55 13:55 WBC 10.7 RBC 6.00 Hgb 18.1 H* Hct 53.0 MCV 88.3 MCH 30.2 MCHC 34.2 RDW Std Deviation 41.6 RDW Coeff of [place] 12.7 Plt Count 207 MPV 10.4 Immature Gran % (Auto) 0.600 Neut % (Auto) 63.1 Lymph % (Auto) 25.7 [place] % (Auto) 5.3 Eos % (Auto) 4.5 Baso % (Auto) 0.8 Absolute Neuts (auto) 6.7 Absolute Lymphs (auto) 2.74 Nucleated RBC % 0 Differential Comment COMMENT Diff Path Review May foll PT 12.0 INR 0.9 D-Dimer Quant (PE/DVT) Sodium 138 Potassium 3.7 Chloride 103 Carbon Dioxide 29.0 Anion Gap 6 BUN 12 Creatinine 1.13 Estim Creat Clear Calc 82.03 Est GFR (MDRD) Af Amer 87 Est GFR (MDRD) Non-Af 72 BUN/Creatinine Ratio 10.6 Glucose 137 H Calcium 9.0 Troponin I High Sens 54 07/09/21 07/09/21 13:55 15:50 WBC RBC Hgb Hct MCV MCH MCHC RDW Std Deviation RDW Coeff of [place]erva Plt Count MPV Immature Gran % (Auto) Neut % (Auto) Lymph % (Auto) [place] % (Auto) Eos % (Auto) Baso % (Auto) Absolute Neuts (auto) Absolute Lymphs (auto) Nucleated RBC % Differential Comment Diff Path Review PT INR D-Dimer Quant (PE/DVT) < 0.27 L Sodium Potassium Chloride Carbon Dioxide Anion Gap BUN Creatinine Estim Creat Clear Calc Est GFR (MDRD) Af Amer Est GFR (MDRD) Non-Af BUN/Creatinine Ratio Glucose Calcium Troponin I High Sens 51 Radiography Chest X-Ray - ED: 1 View, Read by ED Physician, Normal, Heart, Lungs and Mediastinum Diagnostic Testing: Clinical Impression(s) from Imaging Studies Chest X-Ray 07/09/21 14:18 IMPRESSION: Normal x-ray examination of the chest. Electronically Signed: Simón Wynn MD at 14:52 EDT , EKG Initial EKG: Attestation: I personally reviewed and interpreted this EKG as follows: Interpretation: Sinus Rhythm (Sinus at 73 with no acute ischemia. T wave flattening noted in the lateral precordial leads. This is similar to prior study from August 2020.) Treatment and Re-Evaluation Narrative: Chest x-ray per my interpretation reveals no acute abnormalities. Radiologist interpretation is also reviewed. EKG reveals no acute ischemia. Lab work significant only for hemoglobin of 18.1. Initial troponin is 54 followed by a troponin of 51. D-dimer is negative. Test results discussed with patient. He wishes to go home. 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 He is in agreement with the plan. Patient is to follow-up in the cardiology office and return for any worsening symptoms or concerns. Discharge Plan Triage Chief Complaint: Chest Pain ED Provider: Ankita May Dx/Rx/DC Orders Clinical Impression: Chest pain Instructions: ED Chest Pain, Uncertain Cause Prescriptions: No Action coenzyme Q10 [Co Q-10] 100 mg capsule 100 mg PO DAILY RF: 0 arginine (L-arginine) 500 mg capsule 500 mg PO DAILY RF: 0 cholecalciferol (vitamin D3) 5,000 unit capsule 5,000 unit PO DAILY RF: 0 testosterone undecanoate 750 mg/3 mL (250 mg/mL) solution 750 mg IM QWEEK RF: 0 omeprazole 20 mg capsule,delayed release(DR/EC) 20 mg PO DAILY RF: 0 nitroglycerin 0.4 mg tablet, sublingual 0.4 mg SUBLINGUAL Q5-15M PRN (Reason: chest pain) Qty: 25 RF: 4 aspirin 81 MG tablet 81 mg PO DAILY@0800 RF: 0 clopidogrel 75 mg tablet 75 mg PO DAILY Qty: 90 RF: 3 rosuvastatin [Crestor] 40 mg tablet 40 mg PO DAILY Qty: 90 RF: 3 Primary Care Provider: Oneal Parker Referrals: Robert Parnell MD [STAFF PHYSICIAN] - As soon as possible Oneal Parker MD [Primary Care Provider] - Disposition Disposition: Home, Self Care
[2021-07-09 14:35] LABS: International Normalized Ratio 0.9
[2021-07-09 14:36] LABS: Differential Indicated SCAN CRITERIA MET; Hemoglobin 18.1 g/dL (13.0-16.5)
[2021-07-09 14:47] LABS: Anion Gap 6 (5-15); BUN 12 mg/dL (7-18); BUN/Creat Ratio 10.6 RATIO (10-20); Chloride 103 mmol/L (98-107); Creatinine, Serum 1.13 mg/dL (0.70-1.30); EST Glomerular Filtration Rate 72 mL/min (>60); Est Glom Filt Rate - Afr Amer 87 mL/min (>60); Estimated Creatinine Clearance 82.03 ml/min; Glucose 137 mg/dL (74-106); Potassium 3.7 mmol/L (3.5-5.1); Sodium Level 138 mmol/L (136-145); Troponin-I HS 54 pg/mL (3.0-78.0)
[2021-07-09] MEDS: Aspirin 81 MG TAB.CHEW 243 MG PO (15:01)
[2021-07-09 15:05] VITALS: BP 138/90; PULSE 73; RESP 17; O2SAT 96
[2021-07-09 15:09] LABS: D-Dimer Quantitative (DVT/PE) < 0.27 FEU/ug/m (0.27-0.49)
[2021-07-09 16:20] LABS: Troponin-I HS 51 pg/mL (3.0-78.0)
[2021-07-09 16:45] VITALS: BP 145/94; PULSE 80; RESP 16; O2SAT 96
[2021-07-10 13:27] LABS: Pathologist Review Reviewed
== END 2021-07-09 16:48 | disposition home or self-care (01) ==
PROVIDERS: Emergency Provider Emergency Medicine; PCP Family Medicine; Visit Provider Emergency Medicine
DX: R07.9 Chest pain, unspecified (principal); I25.10 Atherosclerotic heart disease of native coronary artery without angina pectoris; M54.9 Dorsalgia, unspecified; Z87.891 Personal history of nicotine dependence; E78.5 Hyperlipidemia, unspecified; I25.5 Ischemic cardiomyopathy; R06.02 Shortness of breath; I25.2 Old myocardial infarction; Z95.5 Presence of coronary angioplasty implant and graft; G89.29 Other chronic pain
CPT/HCPCS: 71045; 80048; 84484; 85025; 85379; 85610; 93005; 99285; A4216

== ENCOUNTER → 2022-02-12 | Outpatient (CLI) | payer OTHER, SELFPAY ==
[2019-02-18 14:01] VITALS: BMI 34.2
[2022-02-12 13:03] LABS: Absolute Lymphocyte Count 2.95 X10^3/uL (0.83-4.51); Absolute Neutrophil Count 4.4 X10^3/uL (2.0-7.7); Basophil% 1.2 % (0-1); Eosinophil# 0.39 X10^3/uL; Eosinophils% 4.6 % (0-5); Lymphocyte # 2.95 X10^3/ul (0.83-4.51); Mean Corp Hgb Conc 32.2 g/dL (32-36); Mean Corpuscular Hgb 29.5 pg (27.0-32.0); Mean Corpuscular Volume 91.5 fL (80-94); Mean Platelet Vol. 10.9 fl (6.2-12.0); Monocyte# 0.57 X10^3/uL; Monocyte% 6.8 % (0-10); NRBC Flagged by Analyzer 0 % (0-5); Neutrophil # 4.38 X10^3/uL (2.7-7.7); Neutrophil % 51.8 % (47-70); Platelet Count 266 K/mm3 (150-450); RBC Distribution Width CV 13.2 % (11.6-14.6); RBC Distribution Width SD 44.5 fl (35.1-43.9); Red Blood Count 6.11 M/mm3 (4.6-6.2); White Blood Count 8.4 K/mm3 (4.4-11.0)
[2022-02-12 13:04] LABS: Hematocrit 55.9 % (40-54)
[2022-02-12 13:09] LABS: Anion Gap 6 (5-15); BUN 14 mg/dL (7-18); BUN/Creat Ratio 12.2 RATIO (10-20); Calcium,Total 9.3 mg/dL (8.5-10.1); Chloride 104 mmol/L (98-107); Cholesterol 99 mg/dL (200); Creatinine, Serum 1.15 mg/dL (0.70-1.30); EST Glomerular Filtration Rate 70 mL/min (>60); Est Glom Filt Rate - Afr Amer 85 mL/min (>60); Glucose 142 mg/dL (74-106); High Density Lipoprotein 27 mg/dL; Potassium 4.7 mmol/L (3.5-5.1); Sodium Level 140 mmol/L (136-145); Triglycerides 105 mg/dL; Very Low Density Lipoprotein 21 mg/dL (5-40)
[2022-02-12 13:17] LABS: Hemoglobin A1c 7.1 % (3.8-5.6)
[2022-02-14 09:38] LABS: Pathologist Review Reviewed
== END | disposition home or self-care (01) ==
LOC: BFHLAB 08:18
PROVIDERS: PCP Family Medicine; Visit Provider Family Medicine
DX: E78.00 Pure hypercholesterolemia, unspecified (principal); I48.91 Unspecified atrial fibrillation; R73.01 Impaired fasting glucose; E29.1 Testicular hypofunction
CPT/HCPCS: 36415; 80048; 80061; 83036; 84403; 85025

== ENCOUNTER → 2022-02-14 | Outpatient (CLI) | payer OTHER, SELFPAY ==
[2019-02-18 14:01] VITALS: BMI 34.2
--- NOTE | 2022-02-15 14:13 | STRESSREP_ITS ---
Stress Test Report Exercise myocardial perfusion stress test. 56-year-old man with a history of coronary disease previous stent placement. Stress protocol: Resting EKG demonstrates normal sinus rhythm with a rate of 80 bpm normal intervals are noted resting blood pressure is 132/84 mmHg. The patient exercised according to the regular T[place] protocol for total duration of 9 minutes attaining a maximum heart rate of 164 bpm which was 99% of max impacted heart rate the maximum workload was 10.4 metabolic equivalents. At rest there were no ST or T wave changes noted suggest ischemia and at peak exercise upsloping ST changes were noted we did not meet the criteria for ischemia. No clinical angina was noted the test was terminated due to dyspnea and target heart rate being achieved. The peak blood pressure was 190/94 mmHg with a rate- pressure part of 31,160. Myocardial perfusion protocol. 9.3 mCi of technetium 99m sestamibi was injected at rest. Patient exercised according to regular Tacho protocol and at peak exercise 30.9 mCi of technetium 99m sestamibi was injected stress images were obtained stress and rest images were reconstructed and compared in the short axis vertical long and horizontal long axis. Gated images were also obtained Perfusion SPECT analysis: Review of the stress images demonstrate a normal cardiac silhouette size. There is mildly reduced perfusion noted in the anteroseptal wall on the stress images as well as a defect noted in the apex. The rest of the cam[place] appear to be normally perfused. The resting images demonstrate a persistent defect in the apex and improvement in the perfusion on the anterior septal wall suggestive of mild anteroseptal ischemia and a previous apical infarct. Gated SPECT analysis: The gated ejection fraction is noted to be 38%. Conclusion: Mildly abnormal exercise myocardial perfusion stress test with evidence of mild anteroseptal ischemia. Previous apical infarct. Reduced ejection fraction.
== END | disposition home or self-care (01) ==
PROVIDERS: PCP Family Medicine; Referring Provider Nurse Practitioner Family; Visit Provider Nurse Practitioner Family
DX: R07.9 Chest pain, unspecified (principal); I25.118 Atherosclerotic heart disease of native coronary artery with other forms of angina pectoris; I25.2 Old myocardial infarction; Z95.5 Presence of coronary angioplasty implant and graft; E78.5 Hyperlipidemia, unspecified
CPT/HCPCS: 78452; 93017; A9500; A4216

== ENCOUNTER 2022-04-18 08:42 | Observation (INO) | payer OTHER, SELFPAY ==
[2019-02-18 14:01] VITALS: BMI 34.2
--- NOTE | 2022-03-25 16:49 | HP.PCM_ITS ---
History and Physical Date of Admission: 04/18/22 TOMMY FLOR, is a 56 M who presents to the [facility] today for a heart catheterization.? He does have a history of coronary artery disease with an acute anterior wall myocardial infarction in November 2016.? He underwent angioplasty and stenting of his LAD, and diagonal #2.? Ejection fraction at that time was noted to be around 40% and he was placed on an intra-aortic balloon pump.? His left circumflex and right coronary arteries had minimal obstructive disease.? Ejection fraction had improved in March 2017 to 50-55%.? He underwent heart catheterization on 02/18/2019 that resulted in PTCA/JANKI to mid LAD.? He has not been able to tolerate higher doses of metoprolol due to brain f ogginess.? He has also had fatigue for which he has been on some testosterone.? He did undergo a stress myocardial perfusion stress test in February 2020 where he exercised to 10 metabolic equivalents with evidence of previous apical infarct and distal septal and distal lateral wall infarction.? He denies arm, jaw, or neck discomfort. He denies symptoms of shortness of breath with exertion, shortness of breath at rest, orthopnea, PND, sudden weight gain, or bilateral lower extremity edema. He states chronic, productive cough. He denies palpitations, lightheadedness, dizziness, near syncope, or syncopal episodes. He denies claudication issues. He denies fever or chills. He denies blood in urine, blood in stool, or epistaxis. He denies myalgia. He states his energy level and exercise level continues to decline. He bikes regularly without symptoms. He notes chest pain frequently (at least weekly). This is located center of chest. This does not radiate. He denies secondary symptoms other than headache. He describes this as sharp and pressure and achy. This has occurred at rest (watching TV) and during times of stress. He rarely notes this with exercise. This resolves with rest/time. This can last 15 minutes upwards to 2 days. He this is the same pain as he has in the past. He underwent a stress test on 02/15/2022 that was mildly abnormal with evidence of mild anteroseptal ischemia. Previous apical infarct and reduced ejection fraction was noted. On account of this, he will proceed with heart catheterization. His heart catheterization was delayed due to logistics and personal timing. Intake Vital Signs: See EMR ? ? 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 Acute ST elevation myocardial infarction (STEMI) Atherosclerotic heart disease of [place] coronary artery with other forms of angina pectoris Chronic back pain History of ST elevation myocardial infarction (STEMI) (11/19/16) Hyperlipidemia Ischemic cardiomyopathy Obesity (BMI 30.0-34.9) Old anteroseptal myocardial infarction (11/19/16) Pericarditis Supraventricular tachycardia Testosterone deficiency Tinnitus, bilateral Surgical History? H/O nasal polypectomy History of back surgery History of coronary artery stent placement (02/18/19) History of left heart catheterization (12/16/16) Family History?(Updated 10/24/21 @ 15:57 by Urban Quintanilla NP, [employer]) Mother CancerFather Cancer CAD (coronary artery disease) ?? ? Multiple PR, -58Brother?? CVA (cerebral vascular accident) Myocardial infarction Social History? Smoking Status:? Former smoker how long ago did patient quit smoking:? 12.5 years ago alcohol intake:? current alcohol intake frequency: a few times a month substance use type:? does not use caffeine:? Yes Type: coffee Number of servings: 3 ROS Const Const: Negative for fatigue, weakness, body ache, fever(s) or chills ENT ENT: Negative for dizziness or Nosebleed/epistaxis Cardio Chest Pain: Yes Palpitations: No Edema: None Muscle aches with walking: None Resp Respiratory: Negative for SOB with activity, SOB at rest, SOB orthopnea\SOB lying down, Cough or paroxysmal nocturnal dyspnea GI GI: Negative nausea, vomiting blood/hematemesis, bright, red blood in stools or black,tarry stools : Negative for hematuria or frequent nighttime urination/ nocturia Musc Musc: Negative for muscle aches/ myalgia Skin Skin: Negative non-healing lesions or rash Neuro Neuro: Negative for dizziness, lightheadedness, near syncope, syncope, orthostatic symptoms or weakness Endo Endo: Negative for fatigue Allergy Allergy/Immunology: Negative for rash Cardiology Exam Const Appearance: cooperative, healthy appearing, comfortable and no acute distress Nutritional Appearance: well nourished and obese Orientation: alert, awake and oriented x3 Head Head: normal to inspection Ears: hearing grossly normal bilaterally Nose: external nose normal Face and Sinus: face symmetric Mouth: oral mucosae normal Eyes General: appearance normal, both eyes and all related structures Eyelids: eyelids normal EOM: EOM intact bilaterally Neck Neck: normal visual inspection and no JVD Carotids: normal carotid upstroke Chest Chest inspection: normal inspection of the chest, symmetric chest movement and normal respiratory effort; Negative cough Auscultation: Bilateral: Clear to Auscultation Cardio Rate: regular rate Rhythm: regular rhythm Heart sounds: S1 normal and S2 normal; Negative rub, gallop or murmur GI GI: normal to inspection and obese Neuro General: patient alert, patient awake, patient oriented x3 and CN's II-XI intact bilaterally Skin Skin: no rashes or lesions noted Extremities Pulses: Normal: Right Posterior Tibial Pulse, Left Posterior Tibial Pulse, Right Radial Pulse and Left Radial Pulse Lower Extremity Edema: None: Bilateral Psych Psychological: normal affect Supplemental Info Supplemental Information Cardiac intervention from 02/18/2019: CONCLUSIONS Segmented LV systolic dysfunction- Moderate Successful PTCA/JANKI MID LAD with a 3.0 x 24 Promus Synergy overlapping previously placed stents, post dilated throughout with a 3.0 x 12 NC balloon; 75%-->0%, no dissection. Pt had similar CP during stent deployment, but of less intensity as he was having at home.? Kevin wire technique needed down LAD in order to pass stents and NC balloons.? No encroachment of ostium of DIAG#1.? Frailty score: Vulnerable RECOMMENDATIONS Referred for immediate PCI Highly recommend quitting all tobacco products Follow up with primary rug cutter helper Risk factor modification ASA Indefinitley Plavix for at least 12 months Routine post interventional care Refer for Outpatient Cardiac Rehab Manual sheath removal per protocol Follow up with Dr. Toth Successful Mynx Control closure of RFA. CORONARY ANGIOGRAPHY DOMINANCE:? Right Dominant LEFT HEART ASSESSMENT Left Ventricular Ejection Fraction: by LV Gram 45 % Depressed Left Ventricular systolic function LVEDP: 5 mmHg Normal Left Ventricular End Diastolic Pressure Anterior Hypokinesis - Moderate LEFT MAIN: ?Angiographically normal LEFT ANTERIOR DESCENDING ARTERY: PROX LAD: Previously placed stent is patent MID LAD: Previously placed stent is patent, 75 % Stenosis DIAGONAL 2: Ostial - 50 % Stenosis CIRCUMFLEX ARTERY: Mild luminal irregularities less than 30% OM 1: Ostial - Moderate luminal irregularities up to 50% RIGHT CORONARY ARTERY: MID RCA: Moderate luminal irregularities up to 50% DISTAL RCA: Mild luminal irregularities less than 30% Carotid duplex ultrasound from 02/12/2019: Interpretation Summary Mild (<50%) stenosis right extracranial internal carotid. Mild (<50%) stenosis left extracranial internal carotid. Flow within the vertebral arteries is antegrade bilaterally. Stress test on 02/15/2022: Conclusion: Mildly abnormal exercise myocardial perfusion stress test with evidence of mild anteroseptal ischemia. Previous apical infarct. Reduced ejection fraction. Assessment and Plan Assessment and Plan (1) Atherosclerotic heart disease of [place] coronary artery with other forms of angina pectoris: ?Status:?Chronic ?Comment: RDM-QPC-Epzi LAD w/ 3.0 x 12 mm Promus Synergy JANKI and JANKI-Mid LAD 3.0 x 12 mm Promus Synergy and POBA-D2 11/19/2016 ?Plan: He continues to acknowledge chest pain.? On account of ongoing chest pain and coronary artery disease history, he underwent a stress test. This was abnormal. Thus, he will proceed with heart catheterization. Based on results, further recommendation will be made. (2) History of coronary artery stent placement: ?Status:?Chronic ?Comment: IOX-RQA-Cdal LAD w/ 3.0 x 12 mm Promus Synergy JANKI and JANKI-Mid LAD 3.0 x 12 mm Promus Synergy and POBA-D2 11/19/2016; PCI-JANKI MID LAD with a 3.0 x 24 Promus Synergy overlapping previously placed stents 02/18/2019 ?Plan: He will continue aspirin 81 mg p.o. daily, Plavix 75 mg p.o. daily, and Crestor 40 mg p.o. daily.? He has a questionable history of angioedema to lisinopril and losartan.? He has been intolerant to isosorbide.? His beta-anika has been discontinued due to brain fogginess. (3) Chest pain: ?Status:?Chronic ?Plan: He we will proceed with heart catheterization to rule out CAD component.? (4) Hyperlipidemia: ?Status:?Chronic ?Plan: He will undergo repeat lipid and liver profile at his earliest convenience.? He will continue Crestor 40 mg p.o. daily.
--- NOTE | 2022-04-17 09:30 | RAD_ITS ---
STUDY: X-RAY CHEST REASON FOR EXAM: Male, 56 years old. Abnormal stress, Heart cath 04/18/22 TECHNIQUE: PA and lateral views of the chest. COMPARISON: Comparison is made with prior study 07/09/2021. FINDINGS: The lungs are clear and expanded. There is no demonstrated pleural abnormality. Normal size heart. Normal mediastinum and amy. Normal visualized pulmonary arteries. Normal visualized aortic arch and descending thoracic aorta. There are diffuse degenerative changes of the visualized thoracic spine. Normal visualized ribs, clavicles, and shoulders. There is no demonstrated abnormality of the visualized soft tissue structures of the upper abdomen. RAD/Chest PA and Lateral IMPRESSION: No acute abnormality is seen. Stable examination. Electronically Signed: Simón Wynn MD at 9:48 EST ,
[2022-04-17 10:14] LABS: Absolute Lymphocyte Count 2.54 X10^3/uL (0.83-4.51); Absolute Neutrophil Count 5.5 X10^3/uL (2.0-7.7); Basophil# 0.11 X10^3/uL; Basophil% 1.2 % (0-1); Eosinophils% 5.4 % (0-5); Lymphocyte # 2.54 X10^3/ul (0.83-4.51); Lymphocyte % 27.4 % (19-41); Mean Corpuscular Hgb 30.5 pg (27.0-32.0); Mean Corpuscular Volume 89.7 fL (80-94); Mean Platelet Vol. 10.1 fl (6.2-12.0); Monocyte# 0.63 X10^3/uL; Monocyte% 6.8 % (0-10); NRBC Flagged by Analyzer 0 % (0-5); Neutrophil # 5.48 X10^3/uL (2.7-7.7); Platelet Count 205 K/mm3 (150-450); RBC Distribution Width CV 13.6 % (11.6-14.6); RBC Distribution Width SD 44.4 fl (35.1-43.9); White Blood Count 9.3 K/mm3 (4.4-11.0)
[2022-04-17 10:20] LABS: Hematocrit 55.6 % (40-54)
[2022-04-17 10:21] LABS: Hemoglobin 18.9 g/dL (13.0-16.5)
[2022-04-17 10:44] LABS: International Normalized Ratio 1.1; Prothrombin Time (Protime)PT. 13.5 SECONDS (11.7-14.9)
[2022-04-17 10:45] LABS: Partial Thromboplast Time 34.2 Seconds (24.1-36.2)
[2022-04-17 10:52] LABS: Anion Gap 5 (5-15); BUN 16 mg/dL (7-18); BUN/Creat Ratio 13.3 RATIO (10-20); Calcium,Total 9.4 mg/dL (8.5-10.1); Chloride 103 mmol/L (98-107); EST Glomerular Filtration Rate 67 mL/min (>60); Est Glom Filt Rate - Afr Amer 81 mL/min (>60); Glucose 114 mg/dL (74-106); Potassium 4.1 mmol/L (3.5-5.1); Sodium Level 138 mmol/L (136-145)
[2022-04-17 11:31] VITALS: BMI 33.9
[2022-04-18] VITALS (14 sets, daily range): BP systolic 102–144; BP diastolic 60–113; PULSE 62–77; RESP 16–18; TEMP 36.1–36.7; O2SAT 93–97
--- NOTE | 2022-04-18 08:40 | CL.D_ITS ---
Patient Name: TOMMY FLOR Study Date: 04/18/2022 Performing: Robert Parnell MD Ht: 72 inches 182.88 cm : 1965 Wt: 250 lbs 113.4 kg Age: 56 Gender: male BSA: 2.34 PROCEDURE(S) PERFORMED [id number])LHC/COR/LV CLINICAL PROFILE AND INDICATIONS Indications: Suspected CAD Heart Failure: None Stress/Imaging Date: 03/27/22Stress Test with SPECT MPI: Positive Low Risk CAD Presentations: Stable angina. CONCLUSIONS Coronary disease with previously stented LAD which is patent and proximal circumflex artery with high-grade stenosis and moderate proximal right and mid to distal right RECOMMENDATIONS Referred for immediate PCI DESCRIPTION OF PROCEDURE The patient arrived to the procedure lab. The risks and benefits of the procedure as well as a full description of our services here and current unavailability of surgical backup were fully explained to the patient and/or their significant other prior to the catheterization. The Timeout was completed, verifying the correct patient and procedure. The patient's procedural site was prepped and draped in the usual fashion. Local anesthetic was given subcutaneously to right radial region with Lidocaine 2%. Using a modified Seldinger technique, arterial access was obtained via the right radial artery, a 6Fr sheath was inserted. Right Coronary Artery selective angiography was then performed in multiple views using a 5 Fr. 4.0 [place] catheter. Left Coronary Artery selective angiography was performed in multiple views using a 5 Fr. 4.0 [place] catheter. Left Ventriculography was performed in BEYER projection using a 5 Fr. Pigtail catheter. LV to AO pullback pressures were then recorded. CORONARY ANGIOGRAPHY DOMINANCE: Right Dominant LEFT HEART ASSESSMENT Left Ventricular Ejection Fraction: by LV Gram 55 % Normal LV wall motion Normal Left Ventricular systolic function LEFT MAIN: Angiographically normal LEFT ANTERIOR DESCENDING ARTERY: Previously placed stent is patent DIAGONAL 1: Ostial - 50 % Stenosis CIRCUMFLEX ARTERY: PROX CIRC: 80% proximal stenosis and a first obtuse marginal branch with a 70% stenosis RIGHT CORONARY ARTERY: Dominant vessel with a proximal 40 to 50% stenosis and a distal 50 to 60% stenosis noted in the posterior descending artery COMPLICATIONS No Complications PROCEDURE MEDICATIONS Versed 1 mg IV Fentanyl 50 mcg IV Versed 1 mg IV Fentanyl 50 mcg IV Oxygen: 2 L/min via nasal cannula Heparin given IA 04/18/2022 08:02:46 Heparin 8000 unit(s) IV 04/18/2022 08:23:12 Verapamil 2.5mg, Ntg 100mcgs, 3000 units of Heparin given IA 04/18/2022 08:02:46 SUMMARY OF HEMODYNAMIC DATA Time AIR REST ECG 07:19:02 AO 112/79 (93) SA 08:03:18 LV 124/-3, 2 08:10:35 LV 109/-2, 1 08:10:44 LV 99/6, 26 08:11:36 LV 108/0, 6 08:11:44 LVp 107/0, 7 08:11:47 AOp 0/0 (15) 08:11:54 Signed By Robert Parnell MD On 04/18/2022 08:40:04 Robert Parnell MD
[2022-04-18 09:34] LABS: Pathologist Review Reviewed
[2022-04-18 09:43] LABS: ACT Activated Clotting Time 305 sec (74-137)
[2022-04-18] MEDS: 0.9% Normal Saline 1,000 ML 150 ML IV (09:55)
--- NOTE | 2022-04-18 10:00 | EKG12_ITS ---
Test Reason : AM, EKG Blood Pressure : / mmHG Vent. Rate : 065 BPM Atrial Rate : 065 BPM P-R Int : 144 ms QRS Dur : 106 ms QT Int : 370 ms P-R-T Axes : 049 038 026 degrees QTc Int : 384 ms Normal sinus rhythm Septal infarct , age undetermined, cannot be excluded Abnormal ECG Confirmed by SHELL ESPINOSA, ELDON ([id number]), web content editor AMOR LOBO ([id number]) on 04/24/2022 10:02:02 AM Referred By: Robert Parnell Confirmed By:ELDON GOFF MD
[2022-04-18] MEDS: fentaNYL 100 MCG/2 ML Ampul 25 MCG IV (11:12)
[2022-04-18] MEDS: amLODIPine 2.5 MG Tablet PO (11:15)
[2022-04-18] MEDS: Metoprolol Tartrate 25 MG Tablet 12.5 MG PO ×2 (11:15→21:56)
[2022-04-18] MEDS: Pantoprazole Sodium 20 MG Tablet PO (11:15)
[2022-04-18] MEDS: oxyCODONE HCl Cr 10 MG Tablet PO ×2 (11:29→21:54)
[2022-04-18] MEDS: Atorvastatin Calcium 80 MG Tablet PO (21:54)
[2022-04-18] MEDS: 0.9% Saline Lock 10 ML Syringe IV (21:58)
[2022-04-19 03:36] VITALS: BP 124/85; PULSE 74; RESP 18; TEMP 36.7; O2SAT 97
[2022-04-19 05:17] LABS: Hemoglobin 17.7 g/dL (13.0-16.5); Mean Corp Hgb Conc 34.7 g/dL (32-36); Mean Corpuscular Hgb 30.4 pg (27.0-32.0); Mean Corpuscular Volume 87.6 fL (80-94); Mean Platelet Vol. 9.7 fl (6.2-12.0); Platelet Count 189 K/mm3 (150-450); RBC Distribution Width CV 13.5 % (11.6-14.6); RBC Distribution Width SD 43.4 fl (35.1-43.9); Red Blood Count 5.82 M/mm3 (4.6-6.2); White Blood Count 8.8 K/mm3 (4.4-11.0)
[2022-04-19 05:43] LABS: ALB/GLOB Ratio 1.1 RATIO (0.9-2.4); AST(SGOT) 17 U/L (15-37); Alanine Aminotransfer ALT/SGPT 51 U/L (16-61); Albumin, Serum 3.4 g/dL (3.2-5.0); Alkaline Phosphatase 52 U/L (45-117); Anion Gap 7 (5-15); BUN 11 mg/dL (7-18); BUN/Creat Ratio 10.1 RATIO (10-20); Calcium,Total 8.6 mg/dL (8.5-10.1); Chloride 107 mmol/L (98-107); Creatinine, Serum 1.09 mg/dL (0.70-1.30); EST Glomerular Filtration Rate 74 mL/min (>60); Est Glom Filt Rate - Afr Amer 90 mL/min (>60); Estimated Creatinine Clearance 84.05 ml/min; Glucose 142 mg/dL (74-106); Potassium 4.2 mmol/L (3.5-5.1); Protein, Total 6.4 g/dL (6.4-8.2); Sodium Level 138 mmol/L (136-145)
--- NOTE | 2022-04-19 07:56 | PCM.PN.CARD ---
Subjective Subjective Patient seen and evaluated. Appears to be doing well. No cardiac complaints. Objective Data Vital Signs: Vital Signs Temp Pulse Resp BP Pulse Ox O2 Del Method 98.1 F 74 18 124/85 H 97 Room Air 04/19/22 03:36 04/19/22 03:36 04/19/22 03:36 04/19/22 03:36 04/19/22 03:36 04/19/22 03:38 Oxygen Delivery Method Room Air Weight: 250 lb Body Mass Index (BMI) 33.9 Intake & Output: Intake and Output for Last 24 Hours 04/17/22 04/18/22 04/19/22 23:59 23:59 23:59 Intake Total 191 / 2149 240 / 240 Balance 191 / 2149 240 / 240 Lab / Micro Data Result Diagrams: 04/19/22 05:04 04/19/22 05:04 Labs: Laboratory Results - last 24 hr 04/17/22 09:14: Diff Path Review Reviewed 04/18/22 08:27: Activated Clotting Time 305 H 04/19/22 05:04: WBC 8.8, RBC 5.82, Hgb 17.7 H, Hct 51.0, MCV 87.6, MCH 30.4, MCHC 34.7, RDW Std Deviation 43.4, RDW Coeff of [place] 13.5, Plt Count 189, MPV 9.7 04/19/22 05:04: Sodium 138, Potassium 4.2, Chloride 107, Carbon Dioxide 24.0, Anion Gap 7, BUN 11, Creatinine 1.09, Estim Creat Clear Calc 84.05, Est GFR (MDRD) Af Amer 90, Est GFR (MDRD) Non-Af 74, BUN/Creatinine Ratio 10.1, Glucose 142 H, Calcium 8.6, Total Bilirubin 0.60, AST 17, ALT 51, Alkaline Phosphatase 52, Total Protein 6.4, Albumin 3.4, Globulin 3.0, Albumin/Globulin Ratio 1.1 Cardiology Labs/Tests 04/19/22 05:04: WBC 8.8, RBC 5.82, Hgb 17.7 H, Hct 51.0, MCV 87.6, MCH 30.4, MCHC 34.7, Plt Count 189, MPV 9.7 04/19/22 05:04: Sodium 138, Potassium 4.2, Chloride 107, Carbon Dioxide 24.0, Anion Gap 7, BUN 11, Creatinine 1.09, Est GFR (MDRD) Af Amer 90, Est GFR (MDRD) Non-Af 74, BUN/Creatinine Ratio 10.1, Glucose 142 H, Calcium 8.6, Total Bilirubin 0.60 Rhythm: EKG: ECHO: Stress Test: Cardiac Cath: PCI: CT Surgery: Holter monitor: EPS: PPM: CXR: Chest CT Scan: Physical Exam Const alert, oriented x3 and no apparent distress General Appearance: cooperative HEENT hearing grossly normal bilaterally Head and Scalp: atraumatic Eyes EOMs intact bilaterally Neck General: normal visual inspection Chest inspection of chest normal and palpation of chest normal Resp normal respiratory effort Auscultation: clear to auscultation bilaterally Cardio regular rate, regular rhythm, S1 normal heart sound and S2 normal heart sound Jugular Venous Distention: JVD GI normal to inspection, nondistended, normoactive bowel sounds Extremity normal capillary refill and no pedal edema Peripheral Pulses: Yes pulses 2+ throughout and femoral pulses present Skin no rashes or lesions noted Neuro oriented x3 and CN's II-XII intact bilaterally Psych Appearance: grossly normal and appropriate Assessment & Plan Assessment/Plan (1) Atherosclerotic heart disease of [place] coronary artery with other forms of angina pectoris: PLAN: Patient has known coronary artery disease and had previously undergone angioplasty and stenting of the left anterior descending artery. Presented with chest discomfort and cardiac catheterization revealed a high-grade stenosis in the circumflex artery for which he underwent angioplasty. He has been doing well the plan is to discharge him for outpatient follow-up. (2) Hyperlipidemia: PLAN: He will continue with aggressive risk factor modification. Thank you for allowing me to participate in the care of your patient. Please don't hesitate to call if any issues arise.
--- NOTE | 2022-04-19 07:58 | PCM.DC ---
Discharge Instructions Diet Discharge Diet: No restrictions Activity Discharge Activity: Return to Normal Activity Additional Activity Instructions:: You must have someone drive you home. Do not drive until instructed by your doctor. You must have someone stay with you all night after your test. Rest in bed or on the couch until the next morning. Limit the number of times you go up and down stairs the day of your test. Apply pressure to the puncture site if you sneeze or cough. Dressing / Incision Call your doctor if your incision/area has: Increased Pain/ Swelling, Increased Redness, Foul Smelling Discharge and Swelling at the incision site Call your doctor if you observe: Fever of 101 or Higher Additional Dressing/Incision Instructions:: Keep the dressing (bandage) on until the next morning. You may then shower, but do not take a tub bath for 5 days after your test. It is normal to have some tenderness and discomfort at the puncture site. Sometimes bruising also occurs. However, if pain, numbness, or coldness occurs below the puncture site (in your leg, toes, arms or fingers) call your doctor at once. You may have a small, marble sized knot at the puncture site. This is normal. Do not rub it. It will go away in 4-6 weeks. Bleeding can occur from the area where the puncture was done. Blood may spurt or drip from the site. If blood spurts, apply pressure right away to stop bleeding and call 911. Although rare, bleeding into the tissue (hematoma) can also occur. If this happens, a large, firm area goose egg under the skin will appear. If any of these occur, lie down as flat as you can and have someone apply firm pressure to the cath site with a gauze pad or a clean washcloth for 10-15 minutes. Call 911 or go to the Emergency Department. Follow Up Care Test Results: Test results from this visit will be discussed in further detail at your follow-up appointment, if applicable. Discharge Plan Admission Admit Date/Time: 04/18/22 08:42 Attending Provider: Robert Parnell Primary Care Provider: Oneal Parker Discharge Orders/Prescriptions Prescriptions: No Action coenzyme Q10 [Co Q-10] 100 mg capsule 100 mg PO DAILY arginine (L-arginine) 500 mg capsule 500 mg PO DAILY cholecalciferol (vitamin D3) 5,000 unit capsule 5,000 unit PO DAILY testosterone undecanoate 750 mg/3 mL (250 mg/mL) solution 750 mg IM QWEEK Label Comments: approximately 115mg per week Rx Instructions: as a single dose omeprazole 20 mg capsule,delayed release(DR/EC) 20 mg PO DAILY nitroglycerin 0.4 mg tablet, sublingual 0.4 mg SUBLINGUAL Q5-15M PRN (Reason: chest pain) Qty: 25 4RF Rx Instructions: until response; do not exceed 3 doses per episode aspirin 81 MG tablet 81 mg PO DAILY@0800 0RF clopidogrel 75 mg tablet 75 mg PO DAILY Qty: 90 3RF rosuvastatin [Crestor] 40 mg tablet 40 mg PO DAILY Qty: 90 3RF Referrals / Follow Up: Oneal Parker MD [Primary Care Provider] - Disposition Disposition (needs filled in before D/C Order can be placed): Home, Self Care
--- NOTE | 2022-04-19 08:11 | CRPHASE1 ---
Patient Communication Former Patient:: Phase I PHII Cardiac Rehab Discussed with Patient:: Yes Guide to Cardiac Rehab Given to Patient:: Yes Cardiac Rehab Facility Choice List Given to Patient:: Yes Senior Manufacturing Technician:: Dr. Dozier Cardiac Rehabilitation Info Cardiac Rehabilitation Program Information: Cardiac Rehab The cardiac rehab team at [facility] consists of highly skilled exercise physiologists, nurses, respiratory therapists and physicians working together with you. Our purpose is to help you have a full recovery and achieve the goals you set for yourself. Over the years many of our patients have returned to activities they assumed they would never do again! We can help restore your confidence and motivation to make lifestyle changes that can have a significant impact on your health and quality of life! We can help answer questions and concerns you may have about exercise, lifestyle, medications, diet, stress and anxiety which are common following a hospitalization. WE monitor ECG and vital signs during exercise and discuss your progress with you and report to your physician(s). Cardiac Rehab is proven to help reduce readmissions, improve functional capacity and lower recurrence of problems with your heart. Our Cardiac Rehab program is Certified by the [place] [employer] Pulmonary [employer] (AACVPR) and Accredited by the [place] [employer] through our [facility]. You can contact us at . We invite you to call us with your questions or to get started in our program. If you have other questions or concerns be sure to ask your physician/provider during your follow-up visit. WE look forward to seeing you!
--- NOTE | 2022-04-19 08:12 | CRPH1.INSTRU ---
General Education CAD and cardiac anatomy and function:: Patient communicates acknowledgment Explanation of diagnoses and procedures:: Patient communicates acknowledgment Sign/Symptoms of AK:: Patient communicates acknowledgment Antiplatelet therapy: Patient communicates acknowledgment Smoking Patient Nicotine/Smoking Risk Factors Are:: Cigarettes Recommendations Include:: Previous smoker; encourage continued cessation Nicotine/Smoking Response Code:: Patient communicates acknowledgment Dyslipidemia Patient Dyslipidemia Risk Factors Are:: Total Cholesterol, Triglycerides, HDL, LDL Recommendations Include:: Lipid profile not available Dyslipidemia Response Code:: Patient communicates acknowledgment Overweight/Obesity Patient Overweight/Obesity Risk Factors Are:: Obesity - > or = 30 Recommendations Include:: Weight loss of 5-10%, Reduced calorie diet, Exercise 5-7 times/week Overweight/Obesity:: Patient communicates acknowledgment Hypertension Patient Hypertension Risk Factors Are:: No documented hx of HTN Recommendations Include:: Maintain BP <130/85, BP <130/80 if diabetic Hypertension:: Patient communicates acknowledgment Heart Disease Patient Heart Disease Risk Factors Are:: Previous cardiac event Recommendations Include:: Educated family members of their risk Heart Disease Response Code:: Patient communicates acknowledgment Diabetes Patient Diabetes Risk Factors Are:: No documented hx of diabetes Recommendations Include:: Maintain fasting blood sugars 70-110 md/dL Diabetes:: Patient communicates acknowledgment Metabolic Syndrome Patient Metabolic Syndrome Risk Factors Are [3 of 5]:: Waist circumference > 35 [female] or 40 [male], High triglyceride >150, Low HDL <40 [male] or < 50 [female] Recommendations Include:: Reinforce compliance to risk factor modifications Metabolic Syndrome Response Code:: Patient communicates acknowledgment Sedentary Recommendations Include:: Benefits of regular exercise, Discussed home walking program, Monitored Outpatient Cardiac Rehab Sedentary Response Code:: Patient communicates acknowledgment Stress Recommendations Include:: Identification of stressors, and assessment of coping skills, Stress management techniques Stress Response Code:: Patient communicates acknowledgment
[2022-04-19 08:28] VITALS: BP 148/85; PULSE 72; RESP 18; TEMP 36.4; O2SAT 98
[2022-04-19] MEDS: Pantoprazole Sodium 20 MG Tablet PO (08:29)
[2022-04-19] MEDS: Aspirin E.C. 81 MG Tablet PO (08:29)
[2022-04-19] MEDS: Clopidogrel Bisulfate 75 MG Tablet PO (08:29)
[2022-04-19] MEDS: amLODIPine 2.5 MG Tablet PO (08:29)
[2022-04-19 08:30] VITALS: BP 148/85; PULSE 72
[2022-04-19] MEDS: Metoprolol Tartrate 25 MG Tablet 12.5 MG PO (08:30)
[2022-04-19 08:46] VITALS: O2SAT 95
--- NOTE | 2022-04-19 10:00 | EKG12_ITS ---
Test Reason : POST CATH ADMISSION Blood Pressure : / mmHG Vent. Rate : 065 BPM Atrial Rate : 117 BPM P-R Int : 146 ms QRS Dur : 088 ms QT Int : 370 ms P-R-T Axes : 047 007 037 degrees QTc Int : 384 ms Sinus rhythm Low voltage QRS Septal infarct (cited on or before 20-NOV-2016) Abnormal ECG When compared with ECG of 09-JUL-2021 13:57, Current undetermined rhythm precludes rhythm comparison, needs review Confirmed by NISHANT ESPINOSA, BRANDON ([id number]), development editor AMOR LOBO ([id number]) on 04/25/2022 1:55:26 PM Referred By: Robert Parnell Confirmed By:JENNIFER DILLARD MD
--- NOTE | 2022-04-22 08:17 | CL.I_ITS ---
Patient Name: TOMMY FLOR Study Date: 04/18/2022 Performing: Natalia Dozier MD Ht: 72 inches 182.88 cm : 1965 Wt: 250.3 lbs 113.4 kg Age: 56 Gender: male BSA: 2.34 PROCEDURE(S) PERFORMED IC12-(96429/C9600)JANKI W/WO PTCA, SINGLE CORONARY ARTERY CLINICAL PROFILE AND CO-MORBIDITIES Indications: Suspected CAD Heart Failure: None Stress/Imaging Date: 03/27/22 Stress Test with SPECT MPI: Positive Low Risk CAD Presentations: Stable angina. CONCLUSIONS Successful PTCA/JANKI Prox LCX using Resolute Stacia 2.25x8 mm, post-dilated using 2.5 mm balloon RECOMMENDATIONS ASA Indefinitley Plavix for at least 12 months DESCRIPTION OF PROCEDURE The patient arrived to the procedure lab. The risks and benefits of the procedure as well as a full description of our services here and current unavailability of surgical backup were fully explained to the patient and/or their significant other prior to the catheterization. The Timeout was completed, verifying the correct patient and procedure. The patient's procedural site was prepped and draped in the usual fashion. Local anesthetic was given subcutaneously to right radial region with Lidocaine 2% Using a modified Seldinger technique,arterial access was obtained via the right radial artery, a 6Fr sheath was inserted. Right Coronary Artery selective angiography was then performed in multiple views using a 5 Fr. 4.0 [place] catheter. Left Coronary Artery selective angiography was performed in multiple views using a 5 Fr. 4.0 [place] catheter. Left Ventriculography was performed in BEYER projection using a 5 Fr. Pig[place] catheter. LV to AO pullback pressures were then recorded.The images were reviewed and options discussed. A decision was then made to proceed with an Intervention, IVUS or other adjunct procedure. xb3 Guide catheter was inserted and engaged into the LCA. runthrough Guide wire was advanced to the Circumflex. euphora sc 2.0 x 12 Balloon catheter was advanced across lesion in the circumflex, proximal. PTCA balloon inflated at 12 atms for 15 secs. PTCA balloon inflated at 12 atms for 18 secs. PTCA balloon inflated at 12 atms for 10 secs. Angiogram performed post balloon dilatation. stacia 2.25 x 8 Drug Eluting stent was advanced across the lesion in the circumflex, proximal. Angiogram performed post stent deployment. nc euphora 2.5 x 8 Balloon catheter was inserted post stent. Angiogram performed post balloon dilatation. The arterial sheath was pulled and a TR Band was applied for hemostasis INTERVENTION INFORMATION LESION SITE: Circumflex (Proximal) Lesion Complexity: Non-High/Non-C, lesion length: 7 mm, In-stent restenosis: No Pre Stenosis: 90 % Pre intervention TORIN flow: 3 PROCEDURE: Drug Eluting Stent with pre and post dilatation Post Stenosis: 0 % Post intervention TORIN flow: 3 Lesion Devices: Terumo .014 180cm Runthrough Extra Floppy straight Cordis 6 Fr XB3.0 100cm Guide Catheter Medtronic SC EUPHORA RX 2.0x12 BALLOON Medtronic NC EUPHORA RX 2.5x08 BALLOON COMPLICATIONS No Complications PROCEDURE MEDICATIONS Versed 1 mg IV Fentanyl 50 mcg IV Versed 1 mg IV Fentanyl 50 mcg IV Oxygen: 2 L/min via nasal cannula Heparin given IA 04/18/2022 08:02:46 Heparin 8000 unit(s) IV 04/18/2022 08:23:12 Plavix 300 mg PO 04/18/2022 09:02:10 Verapamil 2.5mg, Ntg 100mcgs, 3000 units of Heparin given IA 04/18/2022 08:02:46 SUMMARY OF HEMODYNAMIC DATA Time AIR REST ECG 07:19:02 AO 112/79 (93) SA 08:03:18 LV 124/-3, 2 08:10:35 LV 109/-2, 1 08:10:44 LV 99/6, 26 08:11:36 LV 108/0, 6 08:11:44 LVp 107/0, 7 08:11:47 AOp 0/0 (15) 08:11:54 AIR REST 09:10:44 Signed By Natalia Dozier MD On 04/22/2022 08:16:51 Natalia Dozier MD
== END 2022-04-19 07:58 | disposition home or self-care (01) ==
LOC: PCU 13:51
PROVIDERS: Internal Medicine Cardiovascular Disease; Admitting Provider Internal Medicine Cardiovascular Disease; PCP Family Medicine; Referring Provider Internal Medicine Cardiovascular Disease; Visit Provider Internal Medicine Cardiovascular Disease
DX: I25.118 Atherosclerotic heart disease of native coronary artery with other forms of angina pectoris (principal); Z95.5 Presence of coronary angioplasty implant and graft; Z87.891 Personal history of nicotine dependence; Z79.82 Long term (current) use of aspirin; Z79.02 Long term (current) use of antithrombotics/antiplatelets; E78.5 Hyperlipidemia, unspecified; I25.2 Old myocardial infarction; I25.5 Ischemic cardiomyopathy; E66.9 Obesity, unspecified; Z79.899 Other long term (current) drug therapy; R94.31 Abnormal electrocardiogram [ECG] [EKG]; R07.9 Chest pain, unspecified; R51.9 Headache, unspecified
CPT/HCPCS: 36415; 71046; 80048; 80053; 85025; 85027; 85347; 85610; 85730; 92928; 93005; 93458; 96361; 96374; 99152; 99153; 99221; J7030; J7040; Q9967; A4216; C1725; C1769; C1874; C1887; C1894; C9600; G0378

== ENCOUNTER 2022-05-01 05:44 | Emergency (ER) | payer OTHER, SELFPAY ==
[2019-02-18 14:01] VITALS: BMI 34.2
[2022-05-01 05:45] VITALS: BP 147/102; PULSE 72; RESP 12; TEMP 37; O2SAT 99; BMI 31.8
--- NOTE | 2022-05-01 06:23 | CT_ITS ---
EXAM: CT ANGIOGRAPHY CHEST WITHOUT AND WITH INTRAVENOUS CONTRAST CLINICAL INDICATION: chest pain TECHNIQUE: Helically acquired angiography images were obtained of the chest without and with intravenous contrast. This CT exam was performed using one or more of the following dose reduction techniques: automated exposure control, adjustment of the mA and/or kV according to patient size, and/or use of iterative reconstruction technique. This report was created using [employer] report generation technology. MIP reconstructed images were created and reviewed. CONTRAST: IV 100mL Isovue-370 COMPARISON: None. FINDINGS: PULMONARY ARTERIES: Unremarkable. Normal in caliber. No evidence of pulmonary embolism. AORTA: Unremarkable. Normal in caliber. No evidence of dissection. GREAT VESSELS OF AORTIC ARCH: Unremarkable. Normal in caliber. No evidence of dissection. LUNGS AND PLEURAL SPACES: Unremarkable. No mass. No consolidation or edema. No pleural effusion or thickening. No pneumothorax. HEART: Coronary artery calcifications. No pericardial effusion. No signs of right heart strain, ratio of right ventricle to left ventricle measures less than 1. MEDIASTINUM: Unremarkable. No mediastinal or hilar adenopathy. Esophagus is unremarkable. No hiatal hernia. THYROID: Unremarkable. No thyroid lesions. BONES/JOINTS: Degenerative changes of the spine. No suspicious lytic or blastic abnormality. CT/CTA Chest W/WO Contrast IMPRESSION: No pulmonary embolism or other acute abnormality identified. Coronary artery calcifications. Electronically Signed: Reyes Raza MD at 7:37 EST ,
[2022-05-01] MEDS: 0.9% Normal Saline 1,000 ML 999 ML IV (06:30)
[2022-05-01] MEDS: Aspirin 81 MG TAB.CHEW PO (06:30)
[2022-05-01 06:38] LABS: Absolute Lymphocyte Count 2.69 X10^3/uL (0.83-4.51); Basophil# 0.08 X10^3/uL; Basophil% 0.8 % (0-1); Eosinophil# 0.51 X10^3/uL; Lymphocyte # 2.69 X10^3/ul (0.83-4.51); Lymphocyte % 26.6 % (19-41); Mean Corpuscular Hgb 29.5 pg (27.0-32.0); Mean Corpuscular Volume 89.3 fL (80-94); Mean Platelet Vol. 10.7 fl (6.2-12.0); Monocyte# 0.84 X10^3/uL; Monocyte% 8.3 % (0-10); NRBC Flagged by Analyzer 0 % (0-5); Neutrophil # 5.96 X10^3/uL (2.7-7.7); Neutrophil % 58.9 % (47-70); Platelet Count 211 K/mm3 (150-450); RBC Distribution Width CV 13.5 % (11.6-14.6); RBC Distribution Width SD 44.1 fl (35.1-43.9); Red Blood Count 6.28 M/mm3 (4.6-6.2); White Blood Count 10.1 K/mm3 (4.4-11.0)
[2022-05-01 06:41] LABS: Differential Indicated SCAN CRITERIA MET; Hematocrit 56.1 % (40-54); Hemoglobin 18.5 g/dL (13.0-16.5)
[2022-05-01 06:48] LABS: Prothrombin Time (Protime)PT. 12.5 SECONDS (11.7-14.9)
[2022-05-01 06:49] LABS: Partial Thromboplast Time 33.5 Seconds (24.1-36.2)
[2022-05-01] MEDS: Ondansetron 4 MG/2 ML Vial IV (06:49)
[2022-05-01] MEDS: Morphine 4 MG/ML Syringe IV (06:49)
[2022-05-01 07:02] LABS: Anion Gap 7 (5-15); BUN 18 mg/dL (7-18); BUN/Creat Ratio 14.8 RATIO (10-20); Chloride 105 mmol/L (98-107); Creatinine, Serum 1.22 mg/dL (0.70-1.30); EST Glomerular Filtration Rate 65 mL/min (>60); Est Glom Filt Rate - Afr Amer 79 mL/min (>60); Estimated Creatinine Clearance 75.09 ml/min; Glucose 213 mg/dL (74-106); Magnesium 2.2 mg/dL (1.6-2.6); Potassium 3.6 mmol/L (3.5-5.1); Sodium Level 140 mmol/L (136-145); Troponin-I HS 95 pg/mL (3.0-78.0)
[2022-05-01 08:23] VITALS: BP 130/80; PULSE 66; RESP 20; O2SAT 96
[2022-05-01 08:28] LABS: Troponin-I HS 82 pg/mL (3.0-78.0)
--- NOTE | 2022-05-01 08:35 | EX.ED.DYSGE1 ---
HPI History of Present Illness Chief Complaint: Chest Pain Narrative Narrative: Patient is a 56-year-old male with past medical history of MN and cardiovascular disease with 3 previous stents placed in his LAD and his most recent stent placed in the circumflex on April 18. Patient states that he has been taking his medication as directed since the stent placement. He reports he was feeling well and went to a birthday republic[employer] yesterday and was jumping on trampoline. He states when he was doing this that he noticed his heart rate increased. He states did not think much of this but around 7 PM noticed some midsternal chest pain that was worse with inspiration. He denies any history of DVT/PE but does have the recent procedure of the heart cath/stent placement and does take testosterone. He states the pain is persisted and with concern he could have caused derangement to his stent or have repeat cardiac dysfunction he presents for evaluation [facility] Medical History (Updated 05/01/22 @ 09:[address] Leoncio Davis, DO) Acute ST elevation myocardial infarction (STEMI) Atherosclerotic heart disease of [place] coronary artery with other forms of angina pectoris Chronic back pain History of ST elevation myocardial infarction (STEMI) (11/19/16) Hyperlipidemia Ischemic cardiomyopathy Obesity (BMI 30.0-34.9) Old anteroseptal myocardial infarction (11/19/16) Pericarditis Supraventricular tachycardia Testosterone deficiency Tinnitus, bilateral Home Medications aspirin 81 mg tablet,delayed release 81 mg PO DAILY@0800 11/23/16 [Rx Last Taken 04/18/22] coenzyme Q10 100 mg capsule (Co Q-10) 100 mg PO DAILY 10/26/18 [History Last Taken Unknown] arginine (L-arginine) 500 mg capsule 500 mg PO DAILY 02/02/19 [History Last Taken Unknown] cholecalciferol (vitamin D3) 125 mcg (5,000 unit) capsule 5,000 unit PO DAILY 02/02/19 [History Last Taken 04/18/22] nitroglycerin 0.4 mg sublingual tablet 0.4 mg sublingual Q5-15M PRN chest pain #25 tabs 02/07/20 [Rx Last Taken Unknown] omeprazole 20 mg capsule,delayed release 20 mg PO DAILY OK to take with Plavix 04/19/21 [History Last Taken Unknown] testosterone undecanoate 750 mg/3 mL (250mg/mL) intramuscular solution 750 mg IM QWEEK 04/19/21 [History Last Taken Unknown] clopidogrel 75 mg tablet 75 mg PO DAILY #90 tabs 02/11/22 [Rx Last Taken 04/18/22] rosuvastatin 40 mg tablet (Crestor) 40 mg PO DAILY #90 tabs 02/11/22 [Rx Last Taken Unknown] Allergy/AdvReac Type Severity Reaction Status Date / Time Environmental Allergies: Allergy NEEDS Verified 05/01/22 05:49 Uncoded FOLLOW-UP lisinopril Allergy Angioedema Verified 05/01/22 05:49 losartan [From Cozaar] Allergy Angioedema Verified 05/01/22 05:49 isosorbide AdvReac Mild Headache Verified 05/01/22 05:49 Family History (Updated 10/24/21 @ 15:57 by [place] GRAPPLER, GRAPPLER-C) Mother Cancer Father Cancer CAD (coronary artery disease) Multiple MN, -57 Brother CVA (cerebral vascular accident) Myocardial infarction Surgical History (Updated 05/01/22 @ 09:[address] Leoncio Davis, DO) H/O nasal polypectomy History of back surgery History of coronary artery stent placement (04/18/22) History of left heart catheterization (12/16/16) Social History Smoking Status: Former smoker how long ago did patient quit smokin.5 years ago alcohol intake: current alcohol intake frequency: a few times a month substance use type: does not use caffeine: Yes Type: coffee Number of servings: 3 ROS ROS ED Constitutional Constitutional ED: Denies chills or fever(s) ENT ENT ED: Denies sore throat Cardiovascular Cardiovascular: Reports chest pain; Denies palpitations or racing heartbeat Respiratory/Chest Respiratory/Chest: Denies cough or dyspnea Gastrointestinal Gastrointestinal: Denies abdominal pain, diarrhea, nausea or vomiting Genitourinary Genitourinary ED: Denies dysuria Musculoskeletal Musculoskeletal: Denies back pain or myalgias Integumentary Denies rash Neurologic Neurologic: Denies headache(s) Hematologic/Lymphatic Hematologic/Lymphatic: Reports easy bleeding and easy bruising EXAM Physical Exam Const Vital Signs: 05/01/22 05:45 05/01/22 05:48 05/01/22 08:23 Temperature 98.6 F Temperature Source Temporal Pulse Rate 72 66 Respiratory Rate 12 20 H Respiratory Effort Short of Breath Blood Pressure 147/102 H 130/80 H Blood Pressure Mean 117 96 Pulse Ox 99 96 Oxygen Delivery Method Room Air Room Air Positive well nourished and well developed General Appearance ED: well developed HEENT Reports moist mucous membranes Eyes PERRL and EOMs intact bilaterally Neck supple and no JVD Chest Wall palpation of chest normal Chest Narrative: No bony deformity or crepitance Resp normal respiratory effort and clear to auscultation bilaterally Cardio regular rate and regular rhythm Rate: other Other Details: Radial pulses are +2-4 bilaterally are equal and symmetric Carotid pulses equal and symmetric as well GI normal to inspection, nondistended, normoactive bowel sounds, non-tender, non-distended and no masses GI Narrative: No voluntary guarding or rigidity no pulsatile mass or fluid wave Auscultation: normoactive bowel sounds Palpation: soft Extremity normal to inspection Extremity Narrative: No asymmetric edema no pitting edema negative Homans' sign bilaterally Neuro oriented x3 and CN's II-XII intact bilaterally Sensorium / Orientation: alert Psych mental status grossly normal Skin no rashes or lesions noted MDM MDM MDM Narrative Medical decision making narrative: Patient presented to the ER hypertensive but otherwise with stable vitals. He reported chest pain that began after physical activity. He also stated however it was worse with inspiration and he does have recent procedure and his heart cath and takes testosterone which does increase his risk for DVT/PE. Secondary to this a CTA was obtained with basic blood work. CTA revealed no acute pulmonary embolus infiltrate dissection or pericardial effusion. His initial troponin was slightly elevated at 95. However I have no recent values to compare to after his recent heart cath. The delta troponin down trended to 82 and his initial and EKG remained stable as well. The case was discussed with cardiology on-call. They agree that the elevation could just be secondary to the procedure of the heart cath. They feel that as his EKG is remaining stable/flat and his troponin is downtrending that there is no need to repeat admission at this time. As CTA is ruled out pericardial effusion dissection or pulmonary embolus and his troponins are downtrending and EKG remained stable I agree with cardiology that there is no need for further inpatient evaluation. Case was discussed with the patient and he is agreeable to the plan of care and states he will follow-up with his family doctor and/or cyber policy and strategy planner on outpatient basis as his work-up overall is showing no acute signs of cardiac damage Lab Data Attestation: I reviewed the patient's lab results. Labs: Laboratory Results - last 24 hr 05/01/22 05/01/22 05/01/22 05:50 05:50 05:50 WBC 10.1 RBC 6.28 H Hgb 18.5 H* Hct 56.1 H MCV 89.3 MCH 29.5 MCHC 33.0 RDW Std Deviation 44.1 H RDW Coeff of [place]erv[place] 13.5 Plt Count 211 MPV 10.7 Immature Gran % (Auto) 0.400 Neut % (Auto) 58.9 Lymph % (Auto) 26.6 Crane % (Auto) 8.3 Eos % (Auto) 5.0 Baso % (Auto) 0.8 Absolute Neuts (auto) 6.0 Absolute Lymphs (auto) 2.69 Nucleated RBC % 0 Diff Path Review May foll PT 12.5 INR 1.0 APTT 33.5 Sodium 140 Potassium 3.6 Chloride 105 Carbon Dioxide 28.0 Anion Gap 7 BUN 18 Creatinine 1.22 Estim Creat Clear Calc 75.09 Est GFR (MDRD) Af Amer 79 Est GFR (MDRD) Non-Af 65 BUN/Creatinine Ratio 14.8 Glucose 213 H Calcium 9.0 Magnesium 2.2 Troponin I High Sens 95 H 05/01/22 07:55 WBC RBC Hgb Hct MCV MCH MCHC RDW Std Deviation RDW Coeff of [place]erv[place] Plt Count MPV Immature Gran % (Auto) Neut % (Auto) Lymph % (Auto) Crane % (Auto) Eos % (Auto) Baso % (Auto) Absolute Neuts (auto) Absolute Lymphs (auto) Nucleated RBC % Diff Path Review PT INR APTT Sodium Potassium Chloride Carbon Dioxide Anion Gap BUN Creatinine Estim Creat Clear Calc Est GFR (MDRD) Af Amer Est GFR (MDRD) Non-Af BUN/Creatinine Ratio Glucose Calcium Magnesium Troponin I High Sens 82 H Radiography Diagnostic Testing: Clinical Impression(s) from Imaging Studies Chest CTA 05/01/22 06:23 IMPRESSION: No pulmonary embolism or other acute abnormality identified. Coronary artery calcifications. Electronically Signed: Reyes Raza MD at 7:37 EST , Discharge Plan Triage Chief Complaint: Chest Pain ED Provider: Leoncio Davis Dx/Rx/DC Orders Clinical Impression: Chest pain, History of coronary artery stent placement, Atherosclerotic heart disease of [place] coronary artery with other forms of angina pectoris Instructions: CAD, ED Chest Pain, Uncertain Cause Prescriptions: No Action coenzyme Q10 [Co Q-10] 100 mg capsule 100 mg PO DAILY arginine (L-arginine) 500 mg capsule 500 mg PO DAILY cholecalciferol (vitamin D3) 5,000 unit capsule 5,000 unit PO DAILY testosterone undecanoate 750 mg/3 mL (250 mg/mL) solution 750 mg IM QWEEK Label Comments: approximately 115mg per week Rx Instructions: as a single dose omeprazole 20 mg capsule,delayed release(DR/EC) 20 mg PO DAILY nitroglycerin 0.4 mg tablet, sublingual 0.4 mg SUBLINGUAL Q5-15M PRN (Reason: chest pain) Qty: 25 4RF Rx Instructions: until response; do not exceed 3 doses per episode aspirin 81 MG tablet 81 mg PO DAILY@0800 0RF clopidogrel 75 mg tablet 75 mg PO DAILY Qty: 90 3RF rosuvastatin [Crestor] 40 mg tablet 40 mg PO DAILY Qty: 90 3RF Primary Care Provider: Oneal Parker Referrals: Oneal Parker MD [Primary Care Provider] - Activity Restrictions/Additional Instructions: Your work-up shows a downtrending troponin and stable EKGs going against any active heart disease. Please follow-up with your family doctor and/or cyber policy and strategy planner for repeat evaluation regarding your recent stent placement and return of symptoms after physical activity. Please return to the ER should you have any further concerns Disposition Disposition: Home, Self Care
[2022-05-01 09:53] VITALS: BP 137/80; PULSE 86; RESP 18; O2SAT 98
[2022-05-02 10:41] LABS: Pathologist Review Reviewed
== END 2022-05-01 09:59 | disposition home or self-care (01) ==
PROVIDERS: Emergency Provider Emergency Medicine; PCP Family Medicine; Visit Provider Emergency Medicine
DX: R07.9 Chest pain, unspecified (principal); I25.118 Atherosclerotic heart disease of native coronary artery with other forms of angina pectoris; I25.5 Ischemic cardiomyopathy; Z95.5 Presence of coronary angioplasty implant and graft; E78.5 Hyperlipidemia, unspecified; Z87.891 Personal history of nicotine dependence; Z79.82 Long term (current) use of aspirin; I25.2 Old myocardial infarction
CPT/HCPCS: 71275; 80048; 83735; 84484; 85025; 85610; 85730; 93005; 96361; 96374; 96375; 99285; J7030; Q9967; A4216; J2405

== ENCOUNTER → 2022-05-06 | Outpatient (CLI) | payer OTHER, SELFPAY ==
[2019-02-18 14:01] VITALS: BMI 34.2
--- NOTE | 2022-05-06 06:05 | CR.HP_ITS ---
CR - History & Physical - General Arrival date:: 05/06/22 Arrival time:: 06:08 Date of Referral:: 04/24/22 Date of CR Evaluation:: 05/06/22 Referring Physician: Dr. Robert Parnell Primary Diagnosis: PCI w/coronary stenting - History of Present Cardiac Event Onset Date: Enter Onset Date of cardiac illnesses in Comment field below PTCA or coronary stenting:: Yes - 04/18/2022, previous stents in 2016 & 2018 Interventions with present event:: Diagnostic heart cath resulted in stenting of coronary artery Were there any complications?: None; has resumed normal activities well. - Sleep Disorder Evaluation Hx of Sleep Apnea: No Do you snore loudly (louder than talking or can be heard through closed doors)?: No - minimal, last sleep study was normal Do you often feel tired/ fatigued/ sleepy during daytime?: Yes Has anyone observed you stop breathing during sleep?: No History of Hypertension (for STOP score): Yes STOP Results: Positive - Medications Home Medications: Ambulatory Orders Medication Instructions Recorded aspirin 81 mg tablet,delayed 81 mg PO DAILY@0800 11/23/16 release coenzyme Q10 100 mg capsule (Co 100 mg PO DAILY 10/26/18 Q-10) arginine (L-arginine) 500 mg 500 mg PO DAILY 02/02/19 capsule cholecalciferol (vitamin D3) 125 5,000 unit PO DAILY 02/02/19 mcg (5,000 unit) capsule nitroglycerin 0.4 mg sublingual 0.4 mg sublingual Q5-15M PRN chest 02/07/20 tablet pain #25 tabs omeprazole 20 mg capsule,delayed 20 mg PO DAILY OK to take with 04/19/21 release Plavix testosterone undecanoate 750 mg/3 750 mg IM QWEEK 04/19/21 mL (250mg/mL) intramuscular solution clopidogrel 75 mg tablet 75 mg PO DAILY #90 tabs 02/11/22 rosuvastatin 40 mg tablet (Crestor) 40 mg PO DAILY #90 tabs 02/11/22 - Allergies Allergies/Adverse Reactions: Allergies Environmental Allergies: Uncoded Allergy (Verified 05/01/22 05:49) NEEDS FOLLOW-UP Grass, trees, etc lisinopril Allergy (Verified 05/01/22 05:49) Angioedema losartan [From Cozaar] Allergy (Verified 05/01/22 05:49) Angioedema isosorbide Adverse Reaction (Mild, Verified 05/01/22 05:49) Headache Advanced Directives - Advanced Directives Power of Grout Worker: No Living Will: No Advance Directives Information Provided: Yes Advance Directives on File: No DNR Order?:: No - MOLST See MOLST form: No Past Medical History - Covid-19 Screening Fever: No Unexplained muscle aches: No Current respiratory symptoms: No Upper respiratory infections symptoms: No Gastro-intestinal symptoms: No Kqq-Utzj-Srxcyi symptoms: No Has tested positive for COVID-19 in last 30 days: No Date of testin05/06/22 - fully vaccinated, no boosters Had contact w/person w/symptoms or Covid-19 (+) last 14 days: No Has High Risk Exposures ID'd by Health dept/Inf Control team: No 65 years or older:: No Lives in Assisted Living facility:: No Has a chronic lung disease or moderate to severe asthma:: No Has a serious heart condition:: Yes Immunocompromised:: No Severely obese (Body Mass Index of 40 or higher):: No Diabetic:: No Has chronic kidney disease undergoing dialysis:: No Has liver disease:: No - Past Medical Illness Medical History: Past Medical History (Last Reviewed 05/01/22 @ 05:47 by Michela Prieto) Acute ST elevation myocardial infarction (STEMI) I21.3 Atherosclerotic heart disease of [place] coronary artery with other forms of angina pectoris I25.118 WPT-TDU-Acgr LAD w/ 3.0 x 12 mm Promus Synergy JANKI and JANKI-Mid LAD 3.0 x 12 mm Promus Synergy and POBA-D2 11/19/2016 Chronic back pain M54.9, G89.[address] elevation myocardial infarction (STEMI) Onset Date: 11/19/16 I25.2 Hyperlipidemia E78.5 Ischemic cardiomyopathy I25.5 Obesity (BMI 30.0-34.9) E66.9 Old anteroseptal myocardial infarction Onset Date: 11/19/16 I25.2 Pericarditis I31.9 Supraventricular tachycardia I47.1 Testosterone deficiency E34.9 Tinnitus, bilateral H93.13 - Past Surgical History Surgical History: Past Surgical History (Last Reviewed 05/01/22 @ 05:47 by Michela Prieto) H/O nasal polypectomy Z98.890, Z87.09 History of back surgery Z98.890 X 2 History of coronary artery stent placement Onset Date: 04/18/22 Z95.5 LBQ-QAP-Oclq LAD w/ 3.0 x 12 mm Promus Synergy JANKI and JANKI-Mid LAD 3.0 x 12 mm Promus Synergy and POBA-D2 11/19/2016; PCI-JANKI MID LAD with a 3.0 x 24 Promus Synergy overlapping previously placed stents 02/18/2019; Successful PTCA/JANKI Prox LCX using Resolute K[place] 2.25x8 mm, post-dilated using 2.5 mm balloon 04/18/2022Successful PTCA/JANKI Prox LCX using Resolute Maple 2.25x8 mm, post-dilated using 2.5 mm balloon History of left heart catheterization Onset Date: 12/16/16 Z98.890 LHC w/ FFR-LAD negative Surgical History: - - Back surgery ?2. - Family History Summary Family History: Family History (Last Updated 10/24/21 @ 15:57 by Urban Quintanilla SCOURING TRAIN OPERATOR, SCOURING TRAIN OPERATOR-C) Mother Cancer Father Cancer CAD (coronary artery disease) Multiple NM, -57 Brother CVA (cerebral vascular accident) Myocardial infarction Social History - Smoking History Smoking Status: Former smoker Hx Tobacco Use: No Hx Smoking Exposure: No - Alcohol Use Alcohol Usage: No - almost never - Substance Abuse Hx Substance Use: No - Occupation Occupation (List type of work in comments):: Employed Hours worked per day:: 10 Returned to work on:: 04/22/22 - Hobbies, Recreation, Social Activities Hobbies: Exercise - cycling Recreational Activities: I am able to engage in a few activities Social Environment - Status Marital Status: - Current Living Arrangements Living Environment:: Spouse - Children How many children do you have?: 4 Do any of your children live nearby?: Yes - Safety Do you feel safe in your surroundings?: Yes - Assistance Do you need any assistance at home?: no Review of Systems - Review of Systems Hints: Right click = Denies ([place]). Left click = Reports ([place]) Review of Present Symptoms: Reports: Shortness of Breath with Exertion - not like it was previously to the stent., Angina - still having some angina with heart rate over 130., Fatigue, Heart Arrhythmia/Irregularities - History of SVT with early CR in 2017., Appetite - Normal, Appetite - Special Diet - trying to diet and eat better, Sleep - Normal - for patient yes.. Denies: Shortness of Breath at Rest, Dizziness/Lightheadedness - Was experiencing the lightheadedness and dizziness prior tot he stent., Sexual Changes - Pain Is Patient Pain Free?: Yes Pain Location: none Pain Level: 0/10 Risk Factor Assessment - Chief Complaint Chief Complaint: [address] Greene who presents to CR following recent PCI intervention w/coronary stenting. Patient has a history of previous NM and stenting in 2017. He had an additional stent done in 2019, both times the patient participated actively in cardiac rehab. At this time he is agreeable to the 4-6 weeks to get him back on track regularly exercising at home on his bike. He has done about 30 minutes daily keeping his heart rate below 128 and has done well with this without any concern or symptoms. - Vital Signs Temperature: 97.8 F Respiratory Rate: 16 Pulse Ox: 97 Blood Pressure: 133/82 - Pulse Pulse Rate: 80 Pulse Rhythm: Regular - Hypertension Blood Pressure Sitting - Left Arm: 133/82 - Blood Cholesterol/Lipids Total Cholesterol (mg/dL) Goal = less than 200 mg/dL: 99 HDL Cholesterol (mg/dL) Goal = less than 40 mg/dL: 27 LDL Cholesterol (mg/dL) Goal = less than 70 mg/dL: 51 Triglycerides (mg/dL) Goal = less than 150 mg/dL: 105 - Obesity Height: 6 ft Weight:: 243 lb Weight in Pounds: 243.0 lbs Weight Source: Stated by Patient Body Mass Index (BMI): 32.9 Nutritional Referral for Obesity: Yes - Physical Inactivity Physical Inactivity: Reg Exercise 30 min/day, Recreational activity - Risk Stratification Risk Guidelines: Lowest Risk: Risk Factor for Smoking, Risk Factor for Dyslipidemia, Risk Factor for Diabetes, Risk Factor for Sedentary Lifestyle, Risk Factor for Depression, Moderate Risk: Risk Factor for Hypertension - 133/82, Highest Risk: Risk Factor for Obesity - 32.9 - Family History Family History: Family History (Last Updated 10/24/21 @ 15:57 by Urban Quintanilla SCOURING TRAIN OPERATOR, SCOURING TRAIN OPERATOR-C) Mother Cancer Father Cancer CAD (coronary artery disease) Brother CVA (cerebral vascular accident) Myocardial infarction Motivation - Motivation to Participate On a scale of 1 to 10, how prepared are you to commit to attending program?: 3 What do you see as barriers to successfully being able to complete the program?: no What do you see as the benefits of succesfully completing the program? In other words, what do you hope to get out of participating in the program?: getting back in to the swing of things. Are there issues you are dealing with that will interfere with completing the program?: some limits with his back history Do you have a spouse or signficant other, family or friends who will help support you to complete the program?: Yes
--- NOTE | 2022-05-06 06:06 | CR.ITP_ITS ---
Diagnosis - General Information Admitting Diagnosis: PCI w/coronary stenting Secondary Diagnosis: HLD, Obesity, previous stents and MD in 2017 & 2019 Barriers to Learning: No Barriers Stage of change r/t lifestyle modifications:: Contemplation Gave educational material for:: Treating Heart Disease, Emotions & Heart Disease, Stress Management & Relaxation, Sleep Disorders & Heart Disease, How The Heart Works, What it means to have Heart Disease, How Coronary Artery Disease is Diagnosed, Heart Procedures, What Heart Medications Do, Risk Factors & Modifications, Living an Active Life, Nutrition - Education/Goals Individual Counseling: Initial Assessment: High Blood Pressure, Overweight/Obesity Cardiac Rehabilitation Goals: 1. Maintain the individual as the primary focus of care. 2. To improve the patient's quality of life. 3. Identification of cardiac risk factors and provide cardiac risk factor management. 4. Enhance the psychosocial status of the patient. 5. Reconditioning enough to allow the patient to resume customary activities. 6. Control symptoms of cardiac disease Personal Goals: Initial Assessment: Improve management of stress and emotions, Improve energy level, Participate in home exercise program, Improve muscle strength and endurance, Improve diet and eating habits (eat healthier) Scale for measuring improvement of personal goals: Enter appropriate number in Comments. 2 = Unchanged. 3 = Slightly Better. 4 = Moderate Improvement. 5 = Met my Goal - Diagnosis & Disease Process Outcomes/Goals: Pt IDs own risk factors & lifestyle modifications by Session 10, Verbalizes symptoms of angina & response by session 3., Pt independently manages Plan/Interventions: Assist Pt to ID & engage in lifestyle modification to reduce CVD risk, Instruct on individual risk factors, Review symptoms of angina & emergency actions, Review secondary diagnosis & identify educational needs. - Safety Referral to Physical Therapy: No Referral to [facility] Case Management: No Fall Risk Assessed:: Yes Assistive Devices:: None Exercise - Initial Assessment - Visit Date of Eval: 05/06/22 Session #:: 0 Mets: Pre-: >7 METS for 30 minutes by discharge - Physician Prescribed Exercise Modalities: Treadmill, NuStep, SciFit Frequency: 3x/week for 12 weeks [36 sessions] Intensity: 60-80% of age predicted maximum heart rate reserve Maximum Excercise HR:: 123-139 Resting Blood Pressure: 133/82 EKG Type: NSR - Outcomes & Goals Goals:: Verbalizes understanding of THR, RPE & goal METS by session 6, Documents in home exercise log/reports 30 min aerobic 5 day/wk by DC, Demonstrates accurate pulse taking by DC - Intervention & Plan Exercise Program Goals: Instruct on personal THR & RPE, Instruct on MET level & personal MET goal, Instruct on home exercise - Physical Activity Home Exercise Physical Activity - Home Exercise: Safe Exercise, Warm-up, Self-monitoring, Cool-Down, Home Exercise > 30 min Daily, Sitting Time <3 hours/daily - Outcomes & Goals Outcomes/Goals: Demonstrates correct Warm-up/exercise Cool-Down (S3) if = 2.5 METs, Verbalizes symptoms of exercise intolerance by Session 3 (S3), Demonstrate safe equipment use (S3) & follows exercise prescrition (6) - Intervention & Plan Plan/Intervention: Instruct warm-up & cool-down if exercising at > 2 METs, Instruct on symptoms of exercise intolerance & actions to take, Instruct & monitor on saf, Assess intial functional capacity & safety risk Nutrition - Initial Assessment - Program Goals Nutrition Program Goals: LDL <100 optimal. 100 - 129 Near optimal. 130 - 159 Borderline High. 160 - 189 High. Total Cholesterol <200 desirable. 200 - 239 Borderline High. >/= 240 High. HDL < 40 Low >/=60 High. Triglycerides <150 desirable. <199 optimal. VlDL 5 - 40. HgbA1C <7%. BMI <25 Patient has diagnosis of Hyperlipidemia (ICD E78)?: Yes - Visit Date of Assessment:: 05/06/22 Session #:: 0 - Cholesterol/Lipids (Other Core Measures) Triglycerides (mg/dL): 105 Total Cholesterol (mg/dL): 99 LDL Cholesterol (mg/dL): 51 HDL Cholesterol (mg/dL): 27 Determine presence & major risk factors that modify LDL goal: Hypertension or hypertensive medication, Low HDL cholesterol <40 mg/dL*, Family history of premature CHD in Male < 55 years: female <65 yearsFa, Age men > 45 years; women >/= 55 years Outcomes/Goals: Pt IDs own risk factors & lifestyle modifications by Session 10, Verbalizes symptoms of angina & response by session 3., Pt independently manages Intervention/Plan: Instruct on personal lipid levels & lipid goals/NCEP g uidelines, Instruct on cholesterol Referral to dietitian:: Yes - Diabetes (Other Core Measures) Diabetes Type: Not Applicable - Weight Mgt (Other Care) Not Applicable: No Height: 6 ft Weight:: 243 lb BMI: 32.9 Diagnosis Overweight/Obesity BMI> 30% ICD-10 E66: Yes Diagnosis High BMI/Morbid Obesity BMI> 35% ICD-10 Z68: No Outcomes/Goals: Pt sets, maintains & shows weight loss goal & trend during rehab Intervention/Plan: Instruct on ideal BMI & set weight loss goal w/patient, Assist pt to ID & incorporate diet changes for weight loss by S9, Refer to Structured Weight Loss program as appropriate, Encourage goal of using 250- 300dcal per session for weight loss - Healthy Eating Habits Will attend diet classes:: Yes Outcomes/Goals:: Consume diet rich in vegs,fruits,whole grain/high fiber,fish,lean meat, Limit sat/trans fats,cholesterol & added salts & sugars Intervention/Plan:: Assess current eating habits - Education Gave educational materials for:: Healthy eating Nutrition - 30-Day Assessment Nutrition - 60-Day Assessment Nutrition - 90-Day Assessment Nutrition - Final Assessment Core - Initial Assessment - Visit Date of Eval: 05/06/22 - Medication Compliance Preventative Medication(s):: Aspirin, Clopidogrel/P2Y12 inhibit, Statin/lipid, Beta anika H/O mental health issues: depression, anxiety, or addiction?: No Doesn?t believe in the benefits of treatment?: No Believes medications are unnecessary or harmful?: No Has a concern about medication side effects?: No Expresses concern over the cost of medications?: No Outcomes/Goals: Verbalizes medications,desired effect & common side effects @ DC, Pt self-reports following medication regimen, Keeps card in wallet w/medications listed by DC Interventions/plans: Instruct on medication effects & side effects, Review medication list w/patient every two weeks, Instruct importance of taking meds as ordered & assist problem solving - Tobacco Use Tobacco Use: Non-smoker - Hypertension Hypertension Diagnosis:: Hypertension ICD-10 I10 Resting Blood Pressure:: 133/82 [place] [employer] Hypertension Guidelines: [place] [employer] Hypertension Guidelines. Normal BP Less than 120/80. Elevated BP 120/80. Hypertension Stage 1: BP 130-139/80-89. Hypertesnion Stage 2: BP 140 or higher/90 or higher. Hypertension Crisis: BP higher than 180/120 Outcomes/Goals: Able to verbalize/achieve optimal blood pressure <130/80, Incorporates diet changes & exercise for blood pressure control by DC Interventions/plan: Instruct on optimal blood pressure, hypertension & medications, Instruct on effects of sodium, alcohol, stress, exercise &hypertension - Tobacco Cessation Referral Smoking Cessation Referral:: No Individual Education/Counseling:: No Education Schedule Given:: Yes Core - 30-Day Assessment Core - 60-Day Assessment Core - 90 Day Assessment Core - Final Assessment Psychosocial - Initial Assess - VIsit Date of Eval: 05/06/22 Session #:: 0 Not Applicable: Yes History of previous Mental disease:: No - Psychosocial Test Tool Used:: [employer] [place] QOL Cardiac, PHQ-9 Questionnaire phq-9 Severity: Severity. 1-4 Minimal Depression. 5-9 Mild Depression. 10-14 Moderate Depression. 15-19 Moderately Sever Depression. 20-27 Severe Depress ion. Rule: - Referral to Behavioral Health PS - Interventions: Yes Attend Stress Management Classes, No Referral to Behavioral Health if PHQ-9 score >9:, No Referral to [facility] - Outcomes/Goals: See list Psychosocial Outcomes/Goals:: ID's personal stressors & 2 strategies to manage stress by discharge - Intervention/Plan: See List Interventions/Plan:: Assess stressors,coping strategies & signs of derpression on admission, Instruct/assist pt to develop coping & personal stress Mgt strategies, Instruct patient to recognize signs & symptoms of depression, Instruct patient to recog Psychosocial - 30-Day Assess Psychosocial - 60-Day Assess Psychosocial - 90-Day Assess Psychosocial - Final Assessmen Patient Health Questionnaire Initial Assessment 1. Little interest or pleasure in doing things: Nearly every day 2. Feeling down, depressed, or hopeless: More than half the days 3. Trouble falling or staying asleep, or sleeping too much: Nearly every day 4. Feeling tired or having little energy: Nearly every day 5. Poor appetite or overeating: Several days 6. Feeling bad about yourself -- or that you are a failure or have let yourself or your family down: More than half the days 7. Trouble concentrating on things, such as reading the newspaper or watching television: Several days 8. Moving or speaking so slowly that other people could have noticed. Or the opposite - being so fidgety or restless that you have been moving around a lot more than usual: Not at all 9. Thoughts that you would be better off , or of hurting yourself in some way: Not at all How difficult have these problems made it for you to do your work, take care of things at home, or get along with other people?: Very difficult Total Score: 15 KIRSTEN-Q SV Test - Statements CAD is a disease of the arteries in the heart: False Examples of risk factors for heart disease: True Angina is chest pain or discomfort: True The benefits of resistance training include: True Eating more meat and dairy products: False Anti-platelet medications such as aspirin are important: True The only effective way to manage stress: False An exercise warm-up slowly increases heart rate: True Prepared, processed foods usually have high sodium: True Depression is common after a heart attack: True The statin medications lower cholesterol: True To control blood pressure, lower the amount of sodium: True If someone gets chest discomfort during walking: False Transfats are partially hydrogenated vegetable oils: True Sleep apnea that is not treated increases the risk: False To control cholesterol, one should become a vegetarian: False Someone knows if he/she is exercising at the right level: True Diabetes cannot be prevented with exercise & health eating: False Stress is a large risk for heart attack: True A diet that can help lower blood pressure is rich in: True - Total Score Total Correct Responses: 20 Self-Efficacy Initial Assessment We would like to know how confident you are in doing certain activities. Please select your confidence level for:: Select your confidence level for the following using the scale 1-10 where 1 is not at all confident and 10 is totally confident. Your score is the average of all 6 responses. Fatigue: How confident are you that you can keep the fatigue caused by your disease from interfering with the things you want to do? Select Number: 4 Physical Discomfort or Pain: How confident are you that you can keep the physical discomfort or pain of your disease from interfering with the things you want to do? Select Number: 5 Emotional Distress: How confident are you that you can keep the emotional distress caused by your disease from interfering with the things you want to do? Select Number: 3 Other Symptoms or Health Problems: How confident are you that you can keep other symptoms or health problems from interfering with the things you want to do? Select Number: 5 Different Tasks and Activities: How confident are you that you can do the different tasks and activities needed to manage your health condition so as to reduce your need to see a doctor? Select Number: 8 Medication: How confident are you that you can do things other than just taking medication to reduce how much your illness affects your everyday life? Select Number: 8 Total Score:: 5 Nutrition Survey - Nutrition Survey Initial Have you lost >10 lbs over the past 2 months without trying?: No Are you following a special diet at home for diabetes, low fat, or low salt?: Yes Are you interested in meeting with a dietitian for help understanding your diet?: No Do you eat less than 3 meals a day?: Yes Do you eat fatty meats (soto, sausage, ribs, etc), fried foods, desserts, large amounts of salad dressings, margarine, butter, or cheese most days?: Yes Do you have food allergies? [Enter types in comment field]: No Do you eat in restaurants more than 3 times a week?: No Do you season food with salt, seasoning salt, or garlic salt?: No Do you used canned, boxed, frozen meals, or soups, seasoning packets?: No Total Score:: 3
[2022-05-06 06:27] VITALS: BP 133/82; PULSE 80; RESP 16; TEMP 36.6; O2SAT 97; BMI 32.9
[2022-05-06 06:58] VITALS: BP 133/82; BMI 32.9
== END | disposition home or self-care (01) ==
LOC: CR 06:00
PROVIDERS: PCP Family Medicine; Referring Provider Internal Medicine Cardiovascular Disease; Visit Provider Internal Medicine Cardiovascular Disease
DX: Z95.5 Presence of coronary angioplasty implant and graft (principal); I21.3 ST elevation (STEMI) myocardial infarction of unspecified site; I25.118 Atherosclerotic heart disease of native coronary artery with other forms of angina pectoris; R53.83 Other fatigue; I10 Essential (primary) hypertension

== ENCOUNTER 2022-06-03 15:45 | Outpatient (RCR) | payer OTHER, SELFPAY ==
[2022-05-06 06:58] VITALS: BMI 32.9
== END 2022-06-04 23:59 ==
LOC: CR 15:45
PROVIDERS: PCP Family Medicine; Visit Provider Internal Medicine Cardiovascular Disease
DX: Z95.5 Presence of coronary angioplasty implant and graft (principal)
CPT/HCPCS: 93798

== ENCOUNTER 2022-07-01 15:45 | Outpatient (RCR) | payer OTHER, SELFPAY ==
[2022-05-06 06:58] VITALS: BMI 32.9
--- NOTE | 2022-06-07 08:18 | PCM.CR.ITP ---
Diagnosis Exercise - 30-day Assessment - Visit Date of Eval: 06/07/22 Session #:: 11 Comments:: Patient only participating in 18 sessions to be comfortable resuming his normal home exercise routine - Physician Prescribed Exercise Modalities: Treadmill, Rower, Airdyne Frequency: 3x/week for 12 weeks [36 sessions] Intensity: 60-80% of age predicted maximum heart rate reserve Duration: 30 - 45 minutes Current METSs:: 7.0 Target Heart Rate:: 123-140 Current RPE:: 12-13 Maximum Excercise HR:: 157 Resting Blood Pressure: 130/78 Maximum Exercise Blood Pressure: 184/90 EKG Type: NSR to sinus tach w/rare PVCs and PACs Current Physical Activity or Exercising minutes: 46 - Outcomes & Goals Goals:: Verbalizes understanding of THR, RPE & goal METS by session 6, Documents in home exercise log/reports 30 min aerobic 5 day/wk by DC, Demonstrates accurate pulse taking by DC - Intervention & Plan Exercise Program Goals: Instruct on personal THR & RPE, Instruct on MET level & personal MET goal, Show patient to take own pulse /validate performance until accurate, Instruct on home exercise - 30-day Reassessments 30 day Reassessments:: Met - Physical Activity Home Exercise Physical Activity - Home Exercise: Safe Exercise, Warm-up, Self-monitoring, Cool-Down, Home Exercise > 30 min Daily, Sitting Time <3 hours/daily - Outcomes & Goals Outcomes/Goals: Demonstrates correct Warm-up/exercise Cool-Down (S3) if = 2.5 METs, Verbalizes symptoms of exercise intolerance by Session 3 (S3), Demonstrate safe equipment use (S3) & follows exercise prescrition (6) - Intervention & Plan Plan/Intervention: Instruct warm-up & cool-down if exercising at > 2 METs, Instruct on symptoms of exercise intolerance & actions to take, Instruct & monitor on saf, Assess intial functional capacity & safety risk - 30-day Reassessments 30 day Reassessments:: Met Nutrition - Initial Assessment Nutrition - 30-Day Assessment - Program Goals Nutrition Program Goals: LDL <100 optimal. 100 - 129 Near optimal. 130 - 159 Borderline High. 160 - 189 High. Total Cholesterol <200 desirable. 200 - 239 Borderline High. >/= 240 High. HDL < 40 Low >/=60 High. Triglycerides <150 desirable. <199 optimal. VlDL 5 - 40. HgbA1C <7%. BMI <25 Patient has diagnosis of Hyperlipidemia (ICD E78)?: Yes - Visit Date of Assessment:: 06/07/22 Session #:: 11 - Cholesterol/Lipids (Other Core Measures) Triglycerides (mg/dL): 105 Total Cholesterol (mg/dL): 99 LDL Cholesterol (mg/dL): 51 HDL Cholesterol (mg/dL): 27 Determine presence & major risk factors that modify LDL goal: Hypertension or hypertensive medication, Low HDL cholesterol <40 mg/dL*, Family history of premature CHD in Male < 55 years: female <65 yearsFa, Age men > 45 years; women >/= 55 years Outcomes/Goals: Pt IDs own risk factors & lifestyle modifications by Session 10, Verbalizes symptoms of angina & response by session 3., Pt independently manages Intervention/Plan: Instruct on personal lipid levels & lipid goals/NCEP guidelines, Instruct on cholesterol Referral to dietitian:: Yes - Medical Nutrition Therapy 30-day Reassessments:: Progressing - Diabetes (Other Core Measures) Diabetes Type: Not Applicable - Weight Mgt (Other Care) Not Applicable: No Height: 6 ft Weight:: 237 lb 8 oz BMI: 32.2 Diagnosis Overweight/Obesity BMI> 30% ICD-10 E66: Yes Diagnosis High BMI/Morbid Obesity BMI> 35% ICD-10 Z68: No Outcomes/Goals: Pt sets, maintains & shows weight loss goal & trend during rehab Intervention/Plan: Instruct on ideal BMI & set weight loss goal w/patient, Assist pt to ID & incorporate diet changes for weight loss by S9, Refer to Structured Weight Loss program as appropriate, Encourage goal of using 250-300dcal per session for weight loss 30 day Reassessments:: Not Met - NO progress toward weight loss - Healthy Eating Habits Will attend diet classes:: Yes Outcomes/Goals:: Consume diet rich in vegs,fruits,whole grain/high fiber,fish,lean meat, Limit sat/trans fats,cholesterol & added salts & sugars Intervention/Plan:: Assess current eating habits 30-day Reassessments:: Progressing - Education Gave educational materials for:: Healthy eating Nutrition - 60-Day Assessment Nutrition - 90-Day Assessment Nutrition - Final Assessment Core - Initial Assessment Core - 30-Day Assessment - Visit Date of Eval: 06/07/22 Session #:: 11 - Medication Compliance Preventative Medication(s):: Aspirin, Clopidogrel/P2Y12 inhibit, Statin/lipid, Beta anika H/O mental health issues: depression, anxiety, or addiction?: No Doesn?t believe in the benefits of treatment?: No Believes medications are unnecessary or harmful?: No Has a concern about medication side effects?: No Expresses concern over the cost of medications?: No Outcomes/Goals: Verbalizes medications,desired effect & common side effects @ DC, Pt self-reports following medication regimen, Keeps card in wallet w/medications listed by DC Interventions/plans: Instruct on medication effects & side effects, Review medication list w/patient every two weeks, Instruct importance of taking meds as ordered & assist problem solving 30-day Reassessments:: Met - Tobacco Use Tobacco Use: Non-smoker - Hypertension Resting Blood Pressure:: 130/78 - still elevated BPs 130/80 [place] [employer] Hypertension Guidelines: [place] [employer] Hypertension Guidelines. Normal BP Less than 120/80. Elevated BP 120/80. Hypertension Stage 1: BP 130-139/80-89. Hypertesnion Stage 2: BP 140 or higher/90 or higher. Hypertension Crisis: BP higher than 180/120 Peak Exercise Blood Pressure:: 184/90 Outcomes/Goals: Able to verbalize/achieve optimal blood pressure <130/80, Incorporates diet changes & exercise for blood pressure control by DC Interventions/plan: Instruct on optimal blood pressure, hypertension & medications, Instruct on effects of sodium, alcohol, stress, exercise &hypertension 30 day Reassessments:: Progressing - Tobacco Cessation Referral Smoking Cessation Referral:: No Individual Education/Counseling:: No Education Schedule Given:: Yes - Patient has workbook but does not participate in group education Core - 60-Day Assessment Core - 90 Day Assessment Core - Final Assessment Psychosocial - Initial Assess Psychosocial - 30-Day Assess - VIsit Date of Eval: 06/07/22 Session #:: 11 Not Applicable: Yes History of previous Mental disease:: No - Psychosocial Test Tool Used:: PHQ-9 Questionnaire phq-9 Severity: Severity. 1-4 Minimal Depression. 5-9 Mild Depression. 10-14 Moderate Depression. 15-19 Moderately Sever Depression. 20-27 Severe Depression. Rule: - Referral to Behavioral Health PS - Interventions: Yes Attend Stress Management Classes, No Referral to Behavioral Health if PHQ-9 score >9:, No Referral to [facility], No Referral to Physician if PHQ-9 if score is 5-9: - Outcomes/Goals: See list Psychosocial Outcomes/Goals:: ID's personal stressors & 2 strategies to manage stress by discharge - Intervention/Plan: See List Interventions/Plan:: Assess stressors,coping strategies & signs of derpression on admission, Instruct/assist pt to develop coping & personal stress Mgt strategies, Instruct patient to recognize signs & symptoms of depression, Instruct patient to recog - 30-day Reassessments: 30 day Reassessments:: Met Psychosocial - 60-Day Assess Psychosocial - 90-Day Assess Psychosocial - Final Assessmen Patient Health Questionnaire 30-Day Re-eval Assessment 1. Little interest or pleasure in doing things: More than half the days 2. Feeling down, depressed, or hopeless: Several days 3. Trouble falling or staying asleep, or sleeping too much: Nearly every day 4. Feeling tired or having little energy: More than half the days 5. Poor appetite or overeating: Not at all 6. Feeling bad about yourself -- or that you are a failure or have let yourself or your family down: More than half the days 7. Trouble concentrating on things, such as reading the newspaper or watching television: Several days 8. Moving or speaking so slowly that other people could have noticed. Or the opposite - being so fidgety or restless that you have been moving around a lot more than usual: Not at all 9. Thoughts that you would be better off , or of hurting yourself in some way: Not at all Total Score: 11 Self-Efficacy 30-Day Re-eval Assessment We would like to know how confident you are in doing certain activities. Please select your confidence level for:: Select your confidence level for the following using the scale 1-10 where 1 is not at all confident and 10 is totally confident. Your score is the average of all 6 responses. Fatigue: How confident are you that you can keep the fatigue caused by your disease from interfering with the things you want to do? Select Number: 6 Physical Discomfort or Pain: How confident are you that you can keep the physical discomfort or pain of your disease from interfering with the things you want to do? Select Number: 8 Emotional Distress: How confident are you that you can keep the emotional distress caused by your disease from interfering with the things you want to do? Select Number: 5 Other Symptoms or Health Problems: How confident are you that you can keep other symptoms or health problems from interfering with the things you want to do? Select Number: 7 Different Tasks and Activities: How confident are you that you can do the different tasks and activities needed to manage your health condition so as to reduce your need to see a doctor? Select Number: 9 Medication: How confident are you that you can do things other than just taking medication to reduce how much your illness affects your everyday life? Select Number: 9 Total Score:: 7 Nutrition Survey
[2022-06-07 08:29] VITALS: BP 130/78; BP 184/90; BMI 32.2
--- NOTE | 2022-07-03 06:47 | PCM.CR.ITP ---
Diagnosis Exercise - 60-day Assessment - Visit Date of Eval: 07/03/22 Session #:: 23 - Physician Prescribed Exercise Modalities: Treadmill, Rower, Airdyne Frequency: 3x/week for 12 weeks [36 sessions] Intensity: 60-80% of age predicted maximum heart rate reserve Duration: 30 - 45 minutes Current METSs:: 7.0 Target Heart Rate:: 139-145 Maximum Excercise HR:: 157 Resting Blood Pressure: 140/78 - Please see Monthly Report for resting BPs this 30 days Maximum Exercise Blood Pressure: 212/98 EKG Type: NSR to sinus tach w/multifocal PVCs. Current Physical Activity or Exercising minutes: 50:32 - Outcomes & Goals Goals:: Verbalizes understanding of THR, RPE & goal METS by session 6, Documents in home exercise log/reports 30 min aerobic 5 day/wk by DC, Demonstrates accurate pulse taking by DC - Intervention & Plan Exercise Program Goals: Instruct on personal THR & RPE, Instruct on MET level & personal MET goal, Show patient to take own pulse /validate performance until accurate, Instruct on home exercise - 30-day Reassessments 30 day Reassessments:: Met - Physical Activity Home Exercise Physical Activity - Home Exercise: Safe Exercise, Warm-up, Self-monitoring, Cool-Down, Home Exercise > 30 min Daily, Sitting Time <3 hours/daily - Outcomes & Goals Outcomes/Goals: Demonstrates correct Warm-up/exercise Cool-Down (S3) if = 2.5 METs, Verbalizes symptoms of exercise intolerance by Session 3 (S3), Demonstrate safe equipment use (S3) & follows exercise prescrition (6) - Intervention & Plan Plan/Intervention: Instruct warm-up & cool-down if exercising at > 2 METs, Instruct on symptoms of exercise intolerance & actions to take, Instruct & monitor on saf, Assess intial functional capacity & safety risk - 30-day Reassessments 30 day Reassessments:: Met Nutrition - Initial Assessment Nutrition - 30-Day Assessment Nutrition - 60-Day Assessment - Program Goals Nutrition Program Goals: LDL <100 optimal. 100 - 129 Near optimal. 130 - 159 Borderline High. 160 - 189 High. Total Cholesterol <200 desirable. 200 - 239 Borderline High. >/= 240 High. HDL < 40 Low >/=60 High. Triglycerides <150 desirable. <199 optimal. VlDL 5 - 40. HgbA1C <7%. BMI <25 Patient has diagnosis of Hyperlipidemia (ICD E78)?: Yes - Visit Date of Assessment:: 07/03/22 Session #:: 23 - Cholesterol/Lipids (Other Core Measures) Triglycerides (mg/dL): 105 Total Cholesterol (mg/dL): 99 LDL Cholesterol (mg/dL): 51 HDL Cholesterol (mg/dL): 27 Determine presence & major risk factors that modify LDL goal: Hypertension or hypertensive medication, Low HDL cholesterol <40 mg/dL*, Family history of premature CHD in Male < 55 years: female <65 yearsFa, Age men > 45 years; women >/= 55 years Outcomes/Goals: Pt IDs own risk factors & lifestyle modifications by Session 10, Verbalizes symptoms of angina & response by session 3., Pt independently manages Intervention/Plan: Instruct on personal lipid levels & lipid goals/NCEP guidelines, Instruct on cholesterol Referral to dietitian:: No - After speaking with the patient, they indicated they are not interested 30-day Reassessments:: Met - Diabetes (Other Core Measures) Diabetes Type: Not Applicable - Weight Mgt (Other Care) Height: 6 ft Weight:: 236 lb BMI: 32.0 Diagnosis Overweight/Obesity BMI> 30% ICD-10 E66: Yes Diagnosis High BMI/Morbid Obesity BMI> 35% ICD-10 Z68: No Outcomes/Goals: Pt sets, maintains & shows weight loss goal & trend during rehab Intervention/Plan: Instruct on ideal BMI & set weight loss goal w/patient, Assist pt to ID & incorporate diet changes for weight loss by S9, Encourage goal of using 250-300dcal per session for weight loss 30 day Reassessments:: Progressing - Healthy Eating Habits Will attend diet classes:: Yes Outcomes/Goals:: Consume diet rich in vegs,fruits,whole grain/high fiber,fish,lean meat, Limit sat/trans fats,cholesterol & added salts & sugars Intervention/Plan:: Assess current eating habits 30-day Reassessments:: Met - Education Gave educational materials for:: Healthy eating Nutrition - 90-Day Assessment Nutrition - Final Assessment Core - Initial Assessment Core - 30-Day Assessment Core - 60-Day Assessment - Visit Date of Eval: 07/03/22 Session #:: 23 - Medication Compliance Preventative Medication(s):: Aspirin, Clopidogrel/P2Y12 inhibit, Statin/lipid H/O mental health issues: depression, anxiety, or addiction?: No Doesn?t believe in the benefits of treatment?: No Believes medications are unnecessary or harmful?: No Has a concern about medication side effects?: No Expresses concern over the cost of medications?: No Outcomes/Goals: Verbalizes medications,desired effect & common side effects @ DC, Pt self-reports following medication regimen, Keeps card in wallet w/medications listed by DC Interventions/plans: Instruct on medication effects & side effects, Review medication list w/patient every two weeks, Instruct importance of taking meds as ordered & assist problem solving 30-day Reassessments:: Met Reassessment Notes & Comments:: Patient does not appear to be on any Beta Blockers and his resting HR's are typically 100 + at rest. - Tobacco Use Tobacco Use: Non-smoker - Hypertension Hypertension Diagnosis:: Hypertension ICD-10 I10 Resting Blood Pressure:: 140/78 [place] [employer] Hypertension Guidelines: [place] [employer] Hypertension Guidelines. Normal BP Less than 120/80. Elevated BP 120/80. Hypertension Stage 1: BP 130-139/80-89. Hypertesnion Stage 2: BP 140 or higher/90 or higher. Hypertension Crisis: BP higher than 180/120 Peak Exercise Blood Pressure:: 212/98 Outcomes/Goals: Able to verbalize/achieve optimal blood pressure <130/80, Incorporates diet changes & exercise for blood pressure control by DC Interventions/plan: Instruct on optimal blood pressure, hypertension & medications, Instruct on effects of sodium, alcohol, stress, exercise &hypertension 30 day Reassessments:: Met - Tobacco Cessation Referral Smoking Cessation Referral:: No Individual Education/Counseling:: No Education Schedule Given:: No - Patient is not participating in group education. Core - 90 Day Assessment Core - Final Assessment Psychosocial - Initial Assess Psychosocial - 30-Day Assess Psychosocial - 60-Day Assess - VIsit Date of Eval: 07/03/22 Session #:: 23 Not Applicable: Yes History of previous Mental disease:: No - Psychosocial Test Tool Used:: PHQ-9 Questionnaire phq-9 Severity: Severity. 1-4 Minimal Depression. 5-9 Mild Depression. 10-14 Moderate Depression. 15-19 Moderately Sever Depression. 20-27 Severe Depression. Rule: - Referral to Behavioral Health PS - Interventions: Yes Attend Stress Management Classes, No Referral to Behavioral Health if PHQ-9 score >9:, No Referral to [facility], No Referral to Physician if PHQ-9 if score is 5-9: - Outcomes/Goals: See list Psychosocial Outcomes/Goals:: ID's personal stressors & 2 strategies to manage stress by discharge - Intervention/Plan: See List Interventions/Plan:: Assess stressors,coping strategies & signs of derpression on admission - 30-day Reassessments: 30 day Reassessments:: Met Psychosocial - 90-Day Assess Psychosocial - Final Assessmen Patient Health Questionnaire 60-Day Re-eval Assessment 1. Little interest or pleasure in doing things: Not at all 2. Feeling down, depressed, or hopeless: Not at all 3. Trouble falling or staying asleep, or sleeping too much: Several days 4. Feeling tired or having little energy: Several days 5. Poor appetite or overeating: Not at all 6. Feeling bad about yourself -- or that you are a failure or have let yourself or your family down: Several days 7. Trouble concentrating on things, such as reading the newspaper or watching television: Not at all 8. Moving or speaking so slowly that other people could have noticed. Or the opposite - being so fidgety or restless that you have been moving around a lot more than usual: Not at all 9. Thoughts that you would be better off , or of hurting yourself in some way: Not at all How difficult have these problems made it for you to do your work, take care of things at home, or get along with other people?: Not difficult at all Total Score: 3 Self-Efficacy 60-Day Re-eval Assessment We would like to know how confident you are in doing certain activities. Please select your confidence level for:: Select your confidence level for the following using the scale 1-10 where 1 is not at all confident and 10 is totally confident. Your score is the average of all 6 responses. Fatigue: How confident are you that you can keep the fatigue caused by your disease from interfering with the things you want to do? Select Number: 8 Physical Discomfort or Pain: How confident are you that you can keep the physical discomfort or pain of your disease from interfering with the things you want to do? Select Number: 8 Emotional Distress: How confident are you that you can keep the emotional distress caused by your disease from interfering with the things you want to do? Select Number: 9 Other Symptoms or Health Problems: How confident are you that you can keep other symptoms or health problems from interfering with the things you want to do? Select Number: 9 Different Tasks and Activities: How confident are you that you can do the different tasks and activities needed to manage your health condition so as to reduce your need to see a doctor? Select Number: 10 Medication: How confident are you that you can do things other than just taking medication to reduce how much your illness affects your everyday life? Select Number: 10 Total Score:: 9 Nutrition Survey
[2022-07-03 07:01] VITALS: BP 140/78; BP 212/98; BMI 32.0
== END 2022-07-05 23:59 ==
LOC: CR 15:45
PROVIDERS: PCP Family Medicine; Visit Provider Internal Medicine Cardiovascular Disease
DX: Z95.5 Presence of coronary angioplasty implant and graft (principal)
CPT/HCPCS: 93798

== ENCOUNTER 2022-07-15 15:45 | Outpatient (RCR) | payer OTHER, SELFPAY ==
[2022-07-06 00:56] VITALS: BP 140/78; BP 212/98
== END 2022-08-04 23:59 ==
LOC: CR 15:45
PROVIDERS: PCP Family Medicine; Visit Provider Internal Medicine Cardiovascular Disease
DX: Z95.5 Presence of coronary angioplasty implant and graft (principal)
CPT/HCPCS: 93798

== ENCOUNTER → 2022-07-18 | Outpatient (CLI) | payer OTHER, SELFPAY ==
[2022-07-03 07:01] VITALS: BMI 32.0
--- NOTE | 2022-07-18 08:09 | ECHOD_ITS ---
Reason For Study: TACHY Procedure This was a 2D Doppler, Color Flow transthoracic echocardiogram. Exam performed in department. Left Ventricle Normal LV size. Moderate concentric left ventricular hypertrophy. The left ventricular ejection fraction is 50 %. No evidence for diastolic dysfunction. Apical hypokinesis. Right Ventricle Normal right ventricle. Atria The left and right atria are normal. Mitral Valve Trivial mitral valve insufficiency. Tricuspid Valve Mild tricuspid valve insufficiency. Normal pulmonary artery pressure. Aortic Valve Normal aortic valve. Pulmonic Valve The pulmonic valve is not well visualized. Great Vessels Normal sized aortic root. Pericardium/Pleural No pericardial effusion. MMode/2D Measurements & Calculations LVIDd: 5.4 cm IVSd: 1.4 cm Ao root diam: 3.4 cm LVIDs: 4.3 cm LVPWd: 1.6 cm FS: 21.6 % LAV(MOD-bp): 59.3 ml LVAd ap4: 35.3 cm2 LVAd ap2: 33.9 cm2 LAV(MOD-bp) Indexed: 26.0 ml/m2 LVLd ap4: 8.1 cm LVLd ap2: 8.0 cm LAV(MOD-sp2): 46.8 ml EDV(MOD-sp4): 122.0 ml EDV(MOD-sp2): 121.7 ml LAV(MOD-sp4): 62.5 ml EDV(sp4-el): 130.2 ml EDV(sp2-el): 121.3 ml LVAs ap4: 25.0 cm2 LVAs ap2: 25.5 cm2 LVLs ap4: 7.3 cm LVLs ap2: 7.6 cm ESV(MOD-sp4): 70.1 ml ESV(MOD-sp2): 71.8 ml ESV(sp4-el): 73.2 ml ESV(sp2-el): 72.9 ml EF(MOD-sp4): 42.5 % EF(MOD-sp2): 41.0 % EF(sp4-el): 43.8 % SV(MOD-sp4): 51.9 ml SV(MOD-sp2): 49.8 ml SV(sp4-el): 57.0 ml LA dimension(2D): 4.1 cm LA A4 area: 20.3 cm2 RA A4 area: 21.1 cm2 Time Measurements MV dec time: 0.12 sec Doppler Measurements & Calculations MV E max singh: 56.6 cm/sec Lat Peak E' Singh: 5.9 cm/sec Med Peak E' Singh: 6.1 cm/sec MV A max singh: 83.7 cm/sec E/E' lat: 9.6 E/E' med: 9.3 MV E/A: 0.68 MV V2 max: 93.5 cm/sec MV dec slope: 487.1 cm/sec2 Ao V2 max: 115.9 cm/sec MV max P.5 mmHg Ao max P.4 mmHg MV V2 mean: 54.0 cm/sec Ao V2 mean: 84.2 cm/sec MV mean P.3 mmHg Ao mean P.2 mmHg MV V2 VTI: 25.8 cm Ao V2 VTI: 24.5 cm AV (velocity ratio): 0.80 LV V1 max: 93.3 cm/sec MR max singh: 320.4 cm/sec PA V2 max: 95.0 cm/sec LV V1 max P.5 mmHg MR max P.1 mmHg PA V2 mean: 66.1 cm/sec LV V1 mean P.1 mmHg LV V1 mean: 68.5 cm/sec LV V1 VTI: 19.6 cm TR max singh: 250.6 cm/sec TR max P.1 mmHg ECHO/Echo Complete Interpretation Summary Moderate concentric left ventricular hypertrophy. The left ventricular ejection fraction is 50 %. Apical hypokinesis Mild tricuspid valve insufficiency. No evidence for diastolic dysfunction. Ordering Physician: Faiza Dubose Referring Physician: Faiza Dubose Performed By: Mahogany Ardon RCS
[2022-07-18 08:17] LABS: Absolute Lymphocyte Count 2.72 X10^3/uL (0.83-4.51); Basophil# 0.09 X10^3/uL; Basophil% 1.1 % (0-1); Eosinophil# 0.53 X10^3/uL; Eosinophils% 6.6 % (0-5); Hematocrit 55.3 % (40-54); Hemoglobin 18.2 g/dL (13.0-16.5); Lymphocyte # 2.72 X10^3/ul (0.83-4.51); Lymphocyte % 34.1 % (19-41); Mean Corp Hgb Conc 32.9 g/dL (32-36); Mean Corpuscular Hgb 29.6 pg (27.0-32.0); Mean Corpuscular Volume 89.9 fL (80-94); Mean Platelet Vol. 9.6 fl (6.2-12.0); Monocyte# 0.58 X10^3/uL; Monocyte% 7.3 % (0-10); NRBC Flagged by Analyzer 0 % (0-5); Neutrophil # 4.01 X10^3/uL (2.7-7.7); Neutrophil % 50.4 % (47-70); Platelet Count 175 K/mm3 (150-450); RBC Distribution Width CV 13.8 % (11.6-14.6); Red Blood Count 6.15 M/mm3 (4.6-6.2)
[2022-07-18 08:52] LABS: Anion Gap 2 (5-15); BUN 15 mg/dL (7-18); BUN/Creat Ratio 12.5 RATIO (10-20); Chloride 105 mmol/L (98-107); EST Glomerular Filtration Rate 67 mL/min (>60); Est Glom Filt Rate - Afr Amer 81 mL/min (>60); Glucose 154 mg/dL (74-106); Magnesium 2.2 mg/dL (1.6-2.6); Sodium Level 136 mmol/L (136-145); Thyroid Stim Hormone (TSH) 1.15 uIU/mL (0.358-3.74)
[2022-07-18 09:00] LABS: AST(SGOT) 25 U/L (15-37); Alanine Aminotransfer ALT/SGPT 46 U/L (16-61); Albumin, Serum 3.9 g/dL (3.2-5.0); Alkaline Phosphatase 53 U/L (45-117); Bilirubin, Direct 0.24 mg/dL (0.00-0.30); Cholesterol 98 mg/dL (200); Globulin 3.1 g/dL (2.2-4.2); High Density Lipoprotein 35 mg/dL; Triglycerides 80 mg/dL; Very Low Density Lipoprotein 16 mg/dL (5-40)
[2022-07-19 12:52] LABS: Pathologist Review Reviewed
== END | disposition home or self-care (01) ==
LOC: CVS 07:44
PROVIDERS: Nurse Practitioner Family; Referring Provider Physician Assistant Medical; Visit Provider Physician Assistant Medical
DX: I47.29 Other ventricular tachycardia (principal); I25.118 Atherosclerotic heart disease of native coronary artery with other forms of angina pectoris; E78.5 Hyperlipidemia, unspecified; Z95.5 Presence of coronary angioplasty implant and graft
CPT/HCPCS: 36415; 80048; 80061; 80076; 83735; 84443; 85025; 93306

== ENCOUNTER → 2022-07-24 | Outpatient (CLI) | payer OTHER, SELFPAY ==
[2022-07-03 07:01] VITALS: BMI 32.0
== END | disposition home or self-care (01) ==
LOC: PSN 13:54
PROVIDERS: Referring Provider Physician Assistant Medical; Visit Provider Physician Assistant Medical
DX: I47.29 Other ventricular tachycardia (principal)
CPT/HCPCS: 93225; 93226

== ENCOUNTER 2022-08-16 15:45 | Outpatient (RCR) | payer OTHER, SELFPAY ==
[2022-08-05 00:20] VITALS: BP 140/78; BP 212/98
== END 2022-09-04 23:59 ==
LOC: CR 15:45
PROVIDERS: Visit Provider Internal Medicine Cardiovascular Disease
DX: Z95.5 Presence of coronary angioplasty implant and graft (principal)
CPT/HCPCS: 93798

== ENCOUNTER → 2023-02-19 | Outpatient (CLI) | payer OTHER, SELFPAY ==
[2023-02-19 07:57] LABS: Basophil# 0.09 X10^3/uL; Eosinophil# 0.62 X10^3/uL; Eosinophils% 6.8 % (0-5); Lymphocyte % 30.6 % (19-41); Mean Corp Hgb Conc 33.8 g/dL (32-36); Mean Corpuscular Hgb 29.6 pg (27.0-32.0); Mean Corpuscular Volume 87.6 fL (80-94); Mean Platelet Vol. 10.3 fl (6.2-12.0); Monocyte# 0.65 X10^3/uL; Monocyte% 7.1 % (0-10); NRBC Flagged by Analyzer 0 % (0-5); Neutrophil # 4.95 X10^3/uL (2.7-7.7); Neutrophil % 54.2 % (47-70); Platelet Count 207 K/mm3 (150-450); RBC Distribution Width SD 41.2 fl (35.1-43.9); Red Blood Count 6.39 M/mm3 (4.6-6.2); White Blood Count 9.1 K/mm3 (4.4-11.0)
[2023-02-19 08:14] LABS: Hemoglobin 18.9 g/dL (13.0-16.5)
[2023-02-19 08:41] LABS: AST(SGOT) 23 U/L (15-37); Alanine Aminotransfer ALT/SGPT 54 U/L (16-61); Albumin, Serum 3.9 g/dL (3.2-5.0); Alkaline Phosphatase 57 U/L (45-117); Bilirubin, Direct 0.24 mg/dL (0.00-0.30); Cholesterol 85 mg/dL (200); Globulin 3.2 g/dL (2.2-4.2); High Density Lipoprotein 32 mg/dL; Protein, Total 7.1 g/dL (6.4-8.2); Triglycerides 69 mg/dL; Very Low Density Lipoprotein 14 mg/dL (5-40)
[2023-02-24 09:39] LABS: Pathologist Review Reviewed
== END | disposition home or self-care (01) ==
LOC: LAB 06:52
PROVIDERS: Physician Assistant Medical; PCP Family Medicine; Referring Provider Nurse Practitioner Family; Visit Provider Nurse Practitioner Family
DX: E78.00 Pure hypercholesterolemia, unspecified (principal)
CPT/HCPCS: 36415; 80061; 80076; 85025

== ENCOUNTER → 2023-06-28 | Outpatient (CLI) | payer OTHER, SELFPAY ==
[2023-06-28 08:03] LABS: Absolute Lymphocyte Count 2.24 X10^3/uL (0.83-4.51); Absolute Neutrophil Count 4.1 X10^3/uL (2.0-7.7); Basophil# 0.06 X10^3/uL; Basophil% 0.8 % (0-1); Eosinophils% 7.9 % (0-5); Hemoglobin 19.5 g/dL (13.0-16.5); Lymphocyte # 2.24 X10^3/ul (0.83-4.51); Lymphocyte % 29.7 % (19-41); Mean Corp Hgb Conc 34.5 g/dL (32-36); Mean Corpuscular Hgb 29.6 pg (27.0-32.0); Mean Corpuscular Volume 85.7 fL (80-94); Mean Platelet Vol. 9.9 fl (6.2-12.0); Monocyte# 0.49 X10^3/uL; Monocyte% 6.5 % (0-10); NRBC Flagged by Analyzer 0 % (0-5); Neutrophil # 4.11 X10^3/uL (2.7-7.7); Neutrophil % 54.4 % (47-70); Platelet Count 181 K/mm3 (150-450); RBC Distribution Width CV 12.9 % (11.6-14.6); RBC Distribution Width SD 39.5 fl (35.1-43.9); Red Blood Count 6.59 M/mm3 (4.6-6.2); White Blood Count 7.6 K/mm3 (4.4-11.0)
[2023-06-28 08:22] LABS: Hematocrit 56.5 % (40-54)
[2023-06-28 08:28] LABS: Hemoglobin A1c 9.1 % (3.8-5.6)
[2023-06-28 08:38] LABS: ALB/GLOB Ratio 1.2 RATIO (0.9-2.4); AST(SGOT) 36 U/L (15-37); Alanine Aminotransfer ALT/SGPT 73 U/L (16-61); Alkaline Phosphatase 62 U/L (45-117); Anion Gap 7 (5-15); BUN 17 mg/dL (7-18); BUN/Creat Ratio 12.9 RATIO (10-20); Calcium,Total 9.5 mg/dL (8.5-10.1); Chloride 107 mmol/L (98-107); Cholesterol 91 mg/dL (200); Creatinine, Serum 1.32 mg/dL (0.70-1.30); EST Glomerular Filtration Rate 59 mL/min (>60); Est Glom Filt Rate - Afr Amer 72 mL/min (>60); Globulin 3.2 g/dL (2.2-4.2); Glucose 255 mg/dL (74-106); High Density Lipoprotein 29 mg/dL; PSA,Total - Annual Screen 1.35 ng/mL (0.00-4.00); Potassium 4.1 mmol/L (3.5-5.1); Protein, Total 7.2 g/dL (6.4-8.2); Sodium Level 139 mmol/L (136-145); Thyroid Stim Hormone (TSH) 1.01 uIU/mL (0.358-3.74); Triglycerides 87 mg/dL; Very Low Density Lipoprotein 17 mg/dL (5-40)
[2023-07-01 09:36] LABS: Pathologist Review Reviewed
== END | disposition home or self-care (01) ==
LOC: RAD 07:25
PROVIDERS: PCP Family Medicine; Referring Provider Family Medicine; Visit Provider Family Medicine
DX: Z12.5 Encounter for screening for malignant neoplasm of prostate (principal); E11.65 Type 2 diabetes mellitus with hyperglycemia; I48.91 Unspecified atrial fibrillation; R79.89 Other specified abnormal findings of blood chemistry
CPT/HCPCS: 36415; 80053; 80061; 83036; 84153; 84403; 84443; 85025; G0103

== ENCOUNTER → 2023-08-01 | Outpatient (CLI) | payer OTHER, SELFPAY ==
--- NOTE | 2023-08-01 06:20 | ECHOCS_ITS ---
Reason For Study: CHEST PAIN Procedure This was a 2D Doppler, Color Flow transthoracic echocardiogram. The study was technically difficult. Contrast injection was performed. Exam performed in department. Left Ventricle Normal LV size. Apical false tendon noted. The estimated ejection fraction is 50 %. There is mild global hypokinesis of the left ventricle. Right Ventricle Normal RV size. Normal systolic function. Atria The left atrium is mildly enlarged. Normal right atrium. Bubble contrast study negative for right to left interatrial shunt. Mitral Valve Normal mitral valve. Tricuspid Valve Normal tricuspid valve. Aortic Valve Trisinus/trileaflet aortic valve. Pulmonic Valve Normal pulmonic valve. Great Vessels Normal aortic root. The pulmonary artery is normal size. Normal inferior vena cava. Pericardium/Pleural No pericardial effusion. Medication Diluted definity 2ml given slow IV push to enhance endocardial definition. MMode/2D Measurements & Calculations LVIDd: 5.7 cm IVSd: 1.7 cm Ao root diam: 3.4 cm LVIDs: 4.6 cm LVPWd: 1.0 cm FS: 18.8 % LAV(MOD-bp): 73.0 ml LVAd ap4: 50.1 cm2 SV(MOD-sp4): 109.7 ml LAV(MOD-bp) Indexed: 32.1 ml/m2 LVLd ap4: 9.2 cm LAV(MOD-sp2): 75.0 ml EDV(MOD-sp4): 220.6 ml LAV(MOD-sp4): 65.0 ml EDV(sp4-el): 230.9 ml LVAs ap4: 35.3 cm2 LVLs ap4: 9.1 cm ESV(MOD-sp4): 110.9 ml ESV(sp4-el): 115.6 ml EF(MOD-sp4): 49.7 % EF(sp4-el): 49.9 % SV(sp4-el): 115.3 ml LA A4 area: 22.4 cm2 LA dimension(2D): 4.3 cm RA A4 area: 20.1 cm2 TAPSE: 3.1 cm Time Measurements MV dec time: 0.15 sec Doppler Measurements & Calculations MV E max singh: 76.5 cm/sec Lat Peak E' Singh: 6.3 cm/sec Med Peak E' Singh: 5.7 cm/sec MV A max singh: 85.8 cm/sec E/E' lat: 12.1 E/E' med: 13.4 MV E/A: 0.89 MV V2 max: 92.1 cm/sec MV dec slope: 510.4 cm/sec2 Ao V2 max: 134.3 cm/sec MV max P.4 mmHg Ao max P.2 mmHg MV V2 mean: 70.9 cm/sec Ao V2 mean: 95.3 cm/sec MV mean P.1 mmHg Ao mean P.2 mmHg MV V2 VTI: 29.6 cm Ao V2 VTI: 27.6 cm AV (velocity ratio): 0.99 LV V1 max: 120.4 cm/sec PA V2 max: 105.7 cm/sec LV V1 max P.8 mmHg PA V2 mean: 67.5 cm/sec LV V1 mean P.2 mmHg LV V1 mean: 82.0 cm/sec LV V1 VTI: 27.2 cm ECHO/Echo Complete W/ Contrast Interpretation Summary Normal LV size. The estimated ejection fraction is 50 %. Apical false tendon noted. Bubble contrast study negative for right to left interatrial shunt. The left atrium is mildly enlarged. Contrast injection was performed. Ordering Physician: Faiza Dubose Referring Physician: Faiza Dubose Performed By: Mahogany Ardon RCS
--- NOTE | 2023-08-03 17:15 | STRESSREP ---
Stress Test Report Pharmacologic myocardial perfusion stress test. 58-year-old man with a history of chest pain Resting EKG demonstrates sinus rhythm with a rate of 58 bpm. Left bundle branch block pattern is noted. Resting blood pressure is 140/82 mmHg. 0.4 mg of regadenoson was infused per usual protocol followed by rapid intravenous saline flush injection. Continuous EKG monitoring was performed. The maximum heart rate was 93 bpm which was 57% of max impacted heart rate the maximum workload was 1 metabolic equivalent. At rest there were no ST or T wave changes noted to suggest ischemia and at peak infusion nonspecific ST changes were noted which did not meet the criteria for ischemia. No clinical angina is noted. The final blood pressure was 138/88 mmHg. Myocardial perfusion protocol. 14.4 mCi of technetium 99m sestamibi was injected at rest. 0.4 mg of regadenoson was infused per usual protocol. At peak infusion 44.8 mCi of technetium 99m sestamibi was injected stress images were obtained stress and rest images were reconstructed and compared in the short axis vertical long and horizontal long axis. Gated images were also obtained. Perfusion SPECT analysis: Review of the stress images demonstrate normal uptake of tracer noted in all areas of the myocardium, except anterior wall which had mildly reduced perfusion and also the inferior wall with mildly reduced perfusion. A similar pattern was noted on the resting images suggesting possible previous anterior and inferior infarct. No obvious reversibility is noted suggest ischemia. Gated SPECT analysis: The gated ejection fraction is 37%. Conclusion: Normal pharmacologic myocardial perfusion stress test. Reduced ejection fraction. Left bundle branch block noted
== END | disposition home or self-care (01) ==
LOC: CVS 06:18
PROVIDERS: PCP Family Medicine; Referring Provider Physician Assistant Medical; Visit Provider Physician Assistant Medical
DX: Z95.5 Presence of coronary angioplasty implant and graft (principal); R07.9 Chest pain, unspecified; I10 Essential (primary) hypertension
CPT/HCPCS: 78452; 93017; 93306; A9500; Q9957; A4216; C8929; J2785

== ENCOUNTER → 2023-08-29 | Outpatient (CLI) | payer OTHER, SELFPAY ==
[2023-08-29 07:50] LABS: Anion Gap 6 (5-15); BUN 18 mg/dL (7-18); BUN/Creat Ratio 14.8 RATIO (10-20); Calcium,Total 9.7 mg/dL (8.5-10.1); Chloride 106 mmol/L (98-107); Creatinine, Serum 1.22 mg/dL (0.70-1.30); EST Glomerular Filtration Rate 65 mL/min (>60); Est Glom Filt Rate - Afr Amer 79 mL/min (>60); Glucose 166 mg/dL (74-106); Potassium 4.1 mmol/L (3.5-5.1); Sodium Level 137 mmol/L (136-145)
== END | disposition home or self-care (01) ==
PROVIDERS: PCP Family Medicine; Referring Provider Physician Assistant Medical; Visit Provider Physician Assistant Medical
DX: I10 Essential (primary) hypertension (principal)
CPT/HCPCS: 36415; 80048

== ENCOUNTER → 2024-02-07 | Outpatient (CLI) | payer OTHER, SELFPAY ==
[2024-02-07 09:02] LABS: AST(SGOT) 41 U/L (15-37); Alanine Aminotransfer ALT/SGPT 71 U/L (16-61); Albumin, Serum 4.2 g/dL (3.2-5.0); Alkaline Phosphatase 70 U/L (45-117); Bilirubin, Direct 0.26 mg/dL (0.00-0.30); Cholesterol 105 mg/dL (200); Globulin 3.1 g/dL (2.2-4.2); Hemoglobin A1c 7.5 % (3.8-5.6); High Density Lipoprotein 36 mg/dL; Protein, Total 7.3 g/dL (6.4-8.2); Triglycerides 74 mg/dL; Very Low Density Lipoprotein 15 mg/dL (5-40)
[2024-02-12 22:06] LABS: PSA, Total 1.2 ng/mL (0.0-4.0); Testosterone Free 7.4 pg/mL (7.2-24.0)
== END | disposition home or self-care (01) ==
LOC: LAB 07:04
PROVIDERS: Physician Assistant Medical; PCP Family Medicine; Referring Provider Nurse Practitioner Family; Visit Provider Nurse Practitioner Family
DX: R53.83 Other fatigue (principal); E11.9 Type 2 diabetes mellitus without complications; I10 Essential (primary) hypertension; I25.118 Atherosclerotic heart disease of native coronary artery with other forms of angina pectoris; E78.00 Pure hypercholesterolemia, unspecified
CPT/HCPCS: 36415; 80061; 80076; 83036; 84153; 84402; 84403

== ENCOUNTER 2024-06-12 09:07 | Observation (INO) | payer BC, SELFPAY ==
[2024-06-12 09:08] VITALS: BP 139/95; PULSE 94; RESP 17; TEMP 36.3; O2SAT 100; BMI 29.8
--- NOTE | 2024-06-12 09:24 | EKG12_ITS ---
Test Reason : N/V Blood Pressure : */* mmHG Vent. Rate : 87 BPM Atrial Rate : 87 BPM P-R Int : 136 ms QRS Dur : 156 ms QT Int : 400 ms P-R-T Axes : 42 52 -62 degrees QTcB Int : 481 ms Normal sinus rhythm Left bundle branch block Abnormal ECG Confirmed by Gokul Domingo ([id number]), general expeditor AYSE BERGER ([id number]) on 06/14/2024 10:54:20 AM Referred By: Confirmed By: Gokul Domingo
--- NOTE | 2024-06-12 09:25 | EX.ED.DYSGE1 ---
HPI History of Present Illness Chief Complaint: Nausea/Vomiting/Diarrhea Narrative Narrative: Patient is a 58-year-old male with past medical history of diabetes, hypertension, CAD, SVT who presented to the emergency department chief complaint nausea vomit diarrhea. Patient states that this started last night after eating a bowl of cookie dough that had been in the refrigerator for approximately 2 weeks. Patient and significant other bedside states that I know he is dehydrated, I know he is dehydrated he states that he is still nauseous currently but has not vomited since 730 this morning. He states that he is recently getting over influenza A as well. [facility] Medical History Bacterial sinusitis Flu-like symptoms Diabetes Decreased left ventricular function Essential hypertension Tinnitus, bilateral Old anteroseptal myocardial infarction (11/19/16) Hyperlipidemia History of ST elevation myocardial infarction (STEMI) (11/19/16) Pericarditis Testosterone deficiency Chronic back pain Supraventricular tachycardia Atherosclerotic heart disease of [place] coronary artery with other forms of angina pectoris Obesity (BMI 30.0-34.9) Ischemic cardiomyopathy Acute ST elevation myocardial infarction (STEMI) Home Medications ?Medication ?Instructions ?Recorded ?Last Taken ?Type aspirin 81 mg tablet,delayed 81 mg PO DAILY@0800 11/23/16 06/11/24 Rx release coenzyme Q10 100 mg capsule (Co 100 mg PO DAILY 10/26/18 06/11/24 History Q-10) arginine (L-arginine) 500 mg 500 mg PO DAILY 02/02/19 06/11/24 History capsule cholecalciferol (vitamin D3) 125 5,000 unit PO DAILY 02/02/19 06/11/24 History mcg (5,000 unit) capsule testosterone undecanoate 750 mg/3 750 mg IM Q14D 04/19/21 06/10/24 History mL (250mg/mL) intramuscular solution baclofen 5 mg tablet 5 mg PO TID PRN muscle pain 05/12/23 06/11/24 History spironolactone 25 mg tablet 25 mg PO DAILY #30 tabs 08/18/23 06/11/24 Rx atenolol 25 mg tablet 25 mg PO DAILY #90 tabs 09/05/23 06/11/24 Rx clopidogrel 75 mg tablet 75 mg PO DAILY #90 tabs 02/02/24 06/11/24 Rx albuterol sulfate 90 mcg/actuation 2 puff inhalation Q6H PRN 06/07/24 Unknown Rx aerosol inhaler shortness of breath or wheezing #6.7 grams doxycycline monohydrate 100 mg 100 mg PO BID 7 days #14 caps 06/07/24 06/11/24 Rx capsule morphine 15 mg tablet,extended 15 mg PO Q12H 06/07/24 06/11/24 History release amlodipine 5 mg tablet 5 mg PO DAILY #30 tabs 06/08/24 06/11/24 Rx albuterol sulfate 2.5 mg/3 mL 2.5 mg (3 mL) inhalation Q6H PRN 06/10/24 Unknown Rx (0.083 %) solution for nebulization shortness of breath or wheezing #45 mL dulaglutide 1.5 mg/0.5 mL 1.5 mg subcut QWEEK 06/12/24 Unknown History subcutaneous pen injector (Trulicity) empagliflozin 25 mg tablet 25 mg PO DAILY 06/12/24 06/11/24 History (Jardiance) omeprazole 40 mg capsule,delayed 40 mg PO DAILY 06/12/24 06/11/24 History release rosuvastatin 40 mg tablet (Crestor) 40 mg PO QHS 06/12/24 06/11/24 History Allergy/AdvReac Type Severity Reaction Status Date / Time Environmental Allergies: Allergy NEEDS Verified 06/12/24 09:11 Uncoded FOLLOW-UP lisinopril Allergy Angioedema Verified 06/12/24 09:11 losartan (From Cozaar) Allergy Angioedema Verified 06/12/24 09:11 isosorbide AdvReac Mild Headache Verified 06/12/24 09:11 Family History Mother Cancer Father Cancer CAD (coronary artery disease) Multiple [place], -58 Brother CVA (cerebral vascular accident) Myocardial infarction Surgical History H/O nasal polypectomy History of back surgery History of left heart catheterization (12/16/16) History of coronary artery stent placement (04/18/22) Social History Smoking Status: Former smoker how long ago did patient quit smokin.5 years ago alcohol intake: current alcohol intake frequency: a few times a month substance use type: does not use caffeine: Yes Type: coffee Number of servings: 3 ROS ROS ED ROS Narrative Constitutional: Complains of chills whole body aches and generalized not feeling well Eyes: Denies change in vision double vision blurry vision Cardiovascular: Denies chest pain or palpitations Respiratory: Denies coughing shortness of breath Abdomen: Complains of nausea vomiting diarrhea as noted above : Denies urinary symptoms Neurological: Denies numbness, weakness, tingling Musculoskeletal: Denies back pain Skin: Denies rashes or lesions EXAM Physical Exam Narrative Exam Narrative: General: Patient was lying in bed rest comfortably appear to be overall not feeling well Head: Atraumatic, normocephalic Eyes: PERRL bilaterally, EOMI bilateral, no conjunctival injection noted Neck: Soft, supple, trachea midline Cardiovascular: Regular rate and rhythm no murmurs gallops rubs noted Respiratory: Clear to auscultation bilaterally Abdomen: Soft, nondistended, diffuse tenderness to palpation no rebound or guarding on exam Extremities: +5/5 strength noted in the bilateral upper and lower extremity, radial pulses +2/4 in bilateral extremities, no pedal edema no exam Neurological: Patient following commands knew that he was at [facility] years 2024 Skin: Warm, dry, intact no rashes or lesions noted Const Vital Signs: 06/12/24 09:08 06/12/24 11:08 Temperature 97.4 F L Temperature Source Temporal Pulse Rate 94 89 Respiratory Rate 17 16 Blood Pressure 139/95 H 132/85 H Blood Pressure Mean 109 100 Pulse Ox 100 96 Oxygen Delivery Method Room Air Room Air MDM MDM MDM Narrative Medical decision making narrative: Patient is a 58-year-old male who presented to the emergency department chief complaint nausea vomit diarrhea. On the differential diagnose includes but not limited to food poisoning, COVID, influenza. Once workup is obtained reviewed he will be reevaluated. Patient be given IV fluids and Zofran. Once workup is obtained reviewed he will be reevaluated. Patient's EKG was reviewed and showed normal sinus rhythm with evidence of left bundle branch block with a rate of 87 bpm no Sgarbossa criteria met. This was compared to previous EKG from 07/07/2023 which showed evidence of left bundle branch block at that point in time as well. Patient's echocardiogram from 08/01/2023 was reviewed as well which showed EF 50% mild global hypokinesis of the left ventricle. Patient CBC was reviewed was significant for leukocytosis of 11,000, hemoglobin was 21.6, platelet count 7173. Patient's venous blood gas showed pH 7.32, bicarb of 24, sodium normal 139, potassium normal 4.1, creatinine was elevated 1.36 this is slightly elevated from his baseline. Patient does have an anion gap at 18. Patient's glucose was noted be 317, AST and ALT are 48 and 105 respectively. Patient lipase 9023, beta hydroxybutyrate elevated to 1. Patient was given 10 units subcutaneous insulin. Patient CT abdomen pelvis with IV contrast reviewed and showed moderate distention/dilation of the stomach and para proximal small bowel with gradual transition to normal caliber small bowel which could be secondary to enteritis such as gastroenteritis or developing/partial small bowel obstruction. No bowel perforation or ascites. Patient test positive for influenza. Will discuss case with hospitalist for admission given his elevated anion gap, hyperglycemia, nausea vomiting. Discussed case with hospitalist Dr. Tejada who accept patient for admission. Patient be started on insulin drip and admitted to the intensive care unit. Patient was notified is agreeable spinal cord concerns answered. Lab Data Labs: Laboratory Results - last 24 hr 06/12/24 06/12/24 09:20 10:00 WBC 11.5 H RBC 7.15 H Hgb 21.6 H* Hct 61.7 H MCV 86.3 MCH 30.2 MCHC 35.0 RDW Std Deviation 40.7 RDW Coeff of [place] 13.9 Plt Count 173 MPV 10.0 Immature Gran % (Auto) 0.800 Neut % (Auto) 87.6 H Lymph % (Auto) 3.8 L Hodgeman % (Auto) 6.3 Eos % (Auto) 0.6 Baso % (Auto) 0.9 Absolute Neuts (auto) 10.1 H Absolute Lymphs (auto) 0.44 L Nucleated RBC % 0 [address] Review May foll Sodium 139 Potassium 4.1 Chloride 100 Carbon Dioxide 20.7 L Anion Gap 18 H BUN 31 H Creatinine 1.36 H Estim Creat Clear Calc 73.30 Est GFR (MDRD) Non-Af 61 BUN/Creatinine Ratio 22.6 H Glucose 317 H Calcium 9.9 Total Bilirubin 1.31 H AST 48 H ALT 105 H Alkaline Phosphatase 82 Total Protein 8.1 Albumin 4.8 Globulin 3.3 Albumin/Globulin Ratio 1.5 Lipase 23 b-Hydroxybutyric mmol/L 1.0 ABG Data ABG results: ABG 06/12/24 10:35 Specimen Type CATHI Sample Site Not entered VBG pH 7.32 VBG pO2 24 L VBG HCO3 24 VBG Total CO2 26 VBG O2 Sat (Calc) 37 L VBG Base Excess -2 L POC Mix VBG pCO2 Pt Tmp 46.9 O2 Delivery Device Room Air Radiography Diagnostic Testing: Clinical Impression(s) from Imaging Studies Abdomen/Pelvis CT 06/12/24 10:35 IMPRESSION: 1. Moderate distention/dilation of the stomach and proximal small bowel with gradual transition to normal caliber small bowel, which is indeterminate and may be secondary to enteritis such as gastroenteritis or developing/partial small bowel obstruction. Clinical correlation and possible progress radiographs are recommended for continued evaluation. 2. No bowel perforation or ascites. One or more dose reduction techniques were used (e.g., Automated exposure control, adjustment of the mA and/or kV according to patient size, use of iterative reconstruction technique). Reading Location: [facility] Discharge Plan Triage Chief Complaint: Nausea/Vomiting/Diarrhea ED Provider: Michael Darby Dx/Rx/DC Orders Clinical Impression: Diabetic ketoacidosis, Influenza A, Nausea & vomiting Prescriptions: No Action coenzyme Q10 [Co Q-10] 100 mg capsule 100 mg PO DAILY arginine (L-arginine) 500 mg capsule 500 mg PO DAILY cholecalciferol (vitamin D3) 5,000 unit capsule 5,000 unit PO DAILY testosterone undecanoate 750 mg/3 mL (250 mg/mL) solution 750 mg IM Q14D Rx Instructions: EVERY OTHER FRIDAY baclofen 5 mg tablet 5 mg PO TID PRN (Reason: muscle pain) spironolactone 25 mg tablet 25 mg PO DAILY Qty: 30 11RF morphine 15 mg tablet extended release 15 mg PO Q12H albuterol sulfate 90 mcg/actuation HFA aerosol inhaler 2 puff inhalation Q6H PRN (Reason: shortness of breath or wheezing) Qty: 6.7 0RF doxycycline monohydrate 100 mg capsule 100 mg PO BID 7 Days Qty: 14 0RF Patient Comments: STARTED 06/07/24 END 06/14/24 albuterol sulfate 2.5 mg /3 mL (0.083 %) solution for nebulization 2.5 mg inhalation Q6H PRN (Reason: shortness of breath or wheezing) Qty: 45 0RF aspirin 81 MG tablet 81 mg PO DAILY@0800 0RF Jardiance 25 mg tablet 25 mg PO DAILY omeprazole 40 mg capsule,delayed release(DR/EC) 40 mg PO DAILY Trulicity 1.5 mg/0.5 mL pen injector 1.5 mg subcut QWEEK Patient Comments: PT HASNT PICKED UP RX YET, SO HASNT PICKED A DAY OF WEEK rosuvastatin [Crestor] 40 mg tablet 40 mg PO QHS atenolol 25 mg tablet 25 mg PO DAILY Qty: 90 3RF clopidogrel 75 mg tablet 75 mg PO DAILY Qty: 90 3RF amlodipine 5 mg tablet 5 mg PO DAILY Qty: 30 11RF Primary Care Provider: Akua Woodruff Referrals: Akua Woodruff MD [Primary Care Provider] - Print Language: Urdu Disposition Disposition: Acute Care Hospital [facility]
[2024-06-12] MEDS: 0.9% Normal Saline (1000mL) 1,000 ML 999 ML IV ×3 (09:27→19:15)
[2024-06-12] MEDS: Ondansetron 4 MG/2 ML Vial IV ×3 (09:27→20:22)
[2024-06-12 09:29] LABS: Absolute Lymphocyte Count 0.44 X10^3/uL (0.83-4.51); Absolute Neutrophil Count 10.1 X10^3/uL (2.0-7.7); Basophil% 0.9 % (0-1); Eosinophil# 0.07 X10^3/uL; Eosinophils% 0.6 % (0-5); Hemoglobin 21.6 g/dL (13.0-16.5); Lymphocyte # 0.44 X10^3/ul (0.83-4.51); Lymphocyte % 3.8 % (19-41); Mean Corpuscular Hgb 30.2 pg (27.0-32.0); Mean Corpuscular Volume 86.3 fL (80-94); Monocyte# 0.72 X10^3/uL; Monocyte% 6.3 % (0-10); NRBC Flagged by Analyzer 0 % (0-5); Neutrophil # 10.07 X10^3/uL (2.7-7.7); Neutrophil % 87.6 % (47-70); POSITIVE DIFFERENTIAL YES; Platelet Count 173 K/mm3 (150-450); RBC Distribution Width CV 13.9 % (11.6-14.6); RBC Distribution Width SD 40.7 fl (35.1-43.9); Red Blood Count 7.15 M/mm3 (4.6-6.2); White Blood Count 11.5 K/mm3 (4.4-11.0)
[2024-06-12 09:35] LABS: Hematocrit 61.7 % (40-54)
--- NOTE | 2024-06-12 09:50 | ED.RN ---
pt refused ct. explained rationale for test. pt continues to decline
[2024-06-12 09:57] LABS: ALB/GLOB Ratio 1.5 RATIO (0.9-2.4); AST(SGOT) 48 U/L (<=37); Alanine Aminotransfer ALT/SGPT 105 U/L (<=46); Albumin, Serum 4.8 g/dL (3.5-5.0); Alkaline Phosphatase 82 U/L (40-129); Anion Gap 18 (5-15); BUN 31 mg/dL (4-19); BUN/Creat Ratio 22.6 RATIO (10-20); Calcium,Total 9.9 mg/dL (7.6-11.0); Carbon Dioxide 20.7 mmol/L (21.0-32.0); Chloride 100 mmol/L (98-108); Creatinine, Serum 1.36 mg/dL (0.70-1.20); EST Glomerular Filtration Rate 61 (>60); Globulin 3.3 g/dL (2.2-4.2); Glucose 317 mg/dL (70-99); Lipase 23 U/L (13-75); Potassium 4.1 mmol/L (3.3-5.1); Protein, Total 8.1 g/dL (5.9-8.4); Sodium Level 139 mmol/L (133-145); Total Bilirubin 1.31 mg/dL (0.00-1.30)
--- NOTE | 2024-06-12 10:35 | CT_ITS ---
PROCEDURE: ABDOMEN/PELVIS W IV CONT ONLY REASON FOR EXAM: 58-year-old male, abdominal pain, nausea and vomiting for several days. TECHNIQUE: Abdomen and pelvis CT with intravenous contrast. No oral contrast. IV CONTRAST: [id number] COMPARISON: None. FINDINGS: Lung bases: The heart is normal in size with coronary artery calcifications. Bibasilar atelectasis. Liver: The liver is normal in size without focal hepatic mass. The major portal veins are patent. No biliary ductal dilation. Gallbladder: No radiopaque stones within the gallbladder. Spleen: Unremarkable. Pancreas: Unremarkable. Adrenals: Unremarkable. Kidneys: No hydronephrosis or nephrolithiasis. Bladder: Distended and unremarkable. Reproductive Organs: Dystrophic calcifications within the prostate gland. Bowel: Moderate gastric distention. Diffuse dilation of the proximal small bowel with gradual transition to normal caliber small bowel. The large bowel loops are normal in caliber with moderate mural thickening and edema. No ascites or pneumoperitoneum. Normal appendix. Lymph nodes: No suspicious lymph node enlargement. Vasculature: Moderate calcific plaque throughout the aortoiliac vessels. Bones: Prior laminectomy and interbody disc spacer placement at L4-5. Thoracolumbar spondylosis. Avascular necrosis of the left femoral head. No aggressive osseous lesions. CT/Abdomen/Pelvis W IV Cont ONLY IMPRESSION: 1. Moderate distention/dilation of the stomach and proximal small bowel with gr adual transition to normal caliber small bowel, which is indeterminate and may be secondary to enteritis such as gastroenteriti s or developing/partial small bowel obstruction. Clinical correlation and possible progress radiographs are recommended for cont inued evaluation. 2. No bowel perforation or ascites. One or more dose reduction techniques were used (e.g., Automated exposure contr ol, adjustment of the mA and/or kV according to patient size, use of iterative reconstruction technique). Reading Location: [id number]
[2024-06-12 10:45] LABS: Blood Gas Specimen Type VEN; O2 Delivery Device Room Air; SITE Not entered; VBG BASE EXCESS -2 mmol/L (-1.0-3.5); VBG Bicarbonate 24 mmol/L (22-26); VBG PO2 24 mmHg (25-40); VBG SO2 37 % (50-70); VBG TCO2 26 mmol/L (23-33); VBG pCO2 46.9 mmHg (41-51); VBG pH 7.32 (7.32-7.42)
[2024-06-12 11:08] VITALS: BP 132/85; PULSE 89; RESP 16; O2SAT 96
[2024-06-12] MEDS: Insulin Lispro 100 UNIT/ML INSULN.PEN 10 UNIT SC (11:57)
--- NOTE | 2024-06-12 12:15 | PCM.HP.STD ---
HPI - General General Date of Admission: 06/12/24 Date of Service: 06/12/24 Chief Complaint: Intractable nausea vomiting and abdominal pain HPI Narrative TOMMY FLOR, is a 58 M with past medical history significant for diabetes mellitus type 2 who presented to the emergency department with intractable nausea vomiting and abdominal pain. Per patient symptoms started about 6 days prior to his admission. He was diagnosed with influenza A. Per patient he did respond to symptom management. A day prior to his admission patient states he ate what he termed as bad food. This was later followed by abdominal pain intractable nausea and vomiting. Presented to the emergency department as a result of worsening symptoms. An assessment of diabetic ketoacidosis was made admitted to the intensive care unit for subsequent management [facility] Medical History Bacterial sinusitis Flu-like symptoms Diabetes Decreased left ventricular function Essential hypertension Tinnitus, bilateral Old anteroseptal myocardial infarction (11/19/16) Hyperlipidemia History of ST elevation myocardial infarction (STEMI) (11/19/16) Pericarditis Testosterone deficiency Chronic back pain Supraventricular tachycardia Atherosclerotic heart disease of [place] coronary artery with other forms of angina pectoris Obesity (BMI 30.0-34.9) Ischemic cardiomyopathy Acute ST elevation myocardial infarction (STEMI) Home Medications ?Medication ?Instructions ?Recorded ?Last Taken ?Type aspirin 81 mg tablet,delayed 81 mg PO DAILY@0800 11/23/16 06/11/24 Rx release coenzyme Q10 100 mg capsule (Co 100 mg PO DAILY 10/26/18 06/11/24 History Q-10) arginine (L-arginine) 500 mg 500 mg PO DAILY 02/02/19 06/11/24 History capsule cholecalciferol (vitamin D3) 125 5,000 unit PO DAILY 02/02/19 06/11/24 History mcg (5,000 unit) capsule testosterone undecanoate 750 mg/3 750 mg IM Q14D 04/19/21 06/10/24 History mL (250mg/mL) intramuscular solution baclofen 5 mg tablet 5 mg PO TID PRN muscle pain 05/12/23 06/11/24 History spironolactone 25 mg tablet 25 mg PO DAILY #30 tabs 08/18/23 06/11/24 Rx atenolol 25 mg tablet 25 mg PO DAILY #90 tabs 09/05/23 06/11/24 Rx clopidogrel 75 mg tablet 75 mg PO DAILY #90 tabs 02/02/24 06/11/24 Rx albuterol sulfate 90 mcg/actuation 2 puff inhalation Q6H PRN 06/07/24 Unknown Rx aerosol inhaler shortness of breath or wheezing #6.7 grams doxycycline monohydrate 100 mg 100 mg PO BID 7 days #14 caps 06/07/24 06/11/24 Rx capsule morphine 15 mg tablet,extended 15 mg PO Q12H 06/07/24 06/11/24 History release amlodipine 5 mg tablet 5 mg PO DAILY #30 tabs 06/08/24 06/11/24 Rx albuterol sulfate 2.5 mg/3 mL 2.5 mg (3 mL) inhalation Q6H PRN 06/10/24 Unknown Rx (0.083 %) solution for nebulization shortness of breath or wheezing #45 mL dulaglutide 1.5 mg/0.5 mL 1.5 mg subcut QWEEK 06/12/24 Unknown History subcutaneous pen injector (Trulicity) empagliflozin 25 mg tablet 25 mg PO DAILY 06/12/24 06/11/24 History (Jardiance) omeprazole 40 mg capsule,delayed 40 mg PO DAILY 06/12/24 06/11/24 History release rosuvastatin 40 mg tablet (Crestor) 40 mg PO QHS 06/12/24 06/11/24 History Allergy/AdvReac Type Severity Reaction Status Date / Time Environmental Allergies: Allergy NEEDS Verified 06/12/24 09:11 Uncoded FOLLOW-UP lisinopril Allergy Angioedema Verified 06/12/24 09:11 losartan (From Cozaar) Allergy Angioedema Verified 06/12/24 09:11 isosorbide AdvReac Mild Headache Verified 06/12/24 09:11 Family History Mother Cancer Father Cancer CAD (coronary artery disease) Multiple OR, -57 Brother CVA (cerebral vascular accident) Myocardial infarction Surgical History H/O nasal polypectomy History of back surgery History of left heart catheterization (12/16/16) History of coronary artery stent placement (04/18/22) Social History Smoking Status: Former smoker how long ago did patient quit smokin.5 years ago alcohol intake: current alcohol intake frequency: a few times a month substance use type: does not use caffeine: Yes Type: coffee Number of servings: 3 ROS ROS Narrative GENERAL: chills, night sweats HEENT: denies headache, sinus congestion, or drainage, dysphagia RESPIRATORY: denies cough, sputum production, shortness of breath, CARDIAC: denies chest pain, palpitations, orthopnea, PND GASTROINTESTINAL: abdominal pain, nausea, vomiting, GENITOURINARY: denies dysuria, urgency, frequency, heamaturia EXTREMITY: denies swelling MUSCULOSKELETAL: denies current joint pain or tenderness NEUROLOGIC: denies focal numbness, weakness, tingling HEMATOLOGIC: denies easy bruising and/or hemorrhage INTEGUMENT: denies rashes PSYCHIATRIC: denies suicidal or homicidal ideation Vital Signs Vital Signs Vital Signs: 06/12/24 09:08 06/12/24 11:08 Temperature 97.4 F L Temperature Source Temporal Pulse Rate 94 89 Respiratory Rate 17 16 Blood Pressure 139/95 H 132/85 H Blood Pressure Mean 109 100 Pulse Ox 100 96 Oxygen Delivery Method Room Air Room Air Weight Weight: 99.79 kg Body Mass Index (BMI) 29.8 Physical Exam Narrative GENERAL: cooperative HEENT: Atraumatic; normocephalic EYES; Anicteric, Normal Conjunctiva NECK; supple, normal thyroid, RESPIRATORY: Diminished to auscultation CARDIOVASCULAR: Regular S1 S2, GI: soft, normoactive bowel sounds, : No Renal angle tenderness; EXTREMITIES: No edema, no clubbing, MUSCULOSKELETAL: no muscle wasting NEURO: Awake; no lateralizing signs. SKIN: No Rash PSYCH; Flat affect Results Lab / Micro Data 06/12/24 09:20 06/12/24 09:20 Labs: Laboratory Results - last 24 hr 06/12/24 09:20: WBC 11.5 H, RBC 7.15 H, Hgb 21.6 H*, Hct 61.7 H, MCV 86.3, MCH 30.2, MCHC 35.0, RDW Std Deviation 40.7, RDW Coeff of [place] 13.9, Plt Count 173, MPV 10.0, Immature Gran % (Auto) 0.800, Neut % (Auto) 87.6 H, Lymph % (Auto) 3.8 L, [place] % (Auto) 6.3, Eos % (Auto) 0.6, Baso % (Auto) 0.9, Absolute Neuts (auto) 10.1 H, Absolute Lymphs (auto) 0.44 L, Nucleated RBC % 0, Diff Path Review August foll, Sodium 139, Potassium 4.1, Chloride 100, Carbon Dioxide 20.7 L, Anion Gap 18 H, BUN 31 H, Creatinine 1.36 H, Estim Creat Clear Calc 73.30, Est GFR (MDRD) Non-Af 61, BUN/Creatinine Ratio 22.6 H, Glucose 317 H, Calcium 9.9, Total Bilirubin 1.31 H, AST 48 H, ALT 105 H, Alkaline Phosphatase 82, Total Protein 8.1, Albumin 4.8, Globulin 3.3, Albumin/Globulin Ratio 1.5, Lipase 23 06/12/24 10:00: b-Hydroxybutyric mmol/L 1.0 Micro: Microbiology 06/12/24 09:28 Mucosa - Nose SARS-CoV-2, Influenza & RSV (PCR) - Final Influenzae A ABG Data ABG results: ABG 06/12/24 10:35 Specimen Type CATHI Sample Site Not entered VBG pH 7.32 VBG pO2 24 L VBG HCO3 24 VBG Total CO2 26 VBG O2 Sat (Calc) 37 L VBG Base Excess -2 L POC Mix VBG pCO2 Pt Tmp 46.9 O2 Delivery Device Room Air Imaging Radiology Impression Abdomen/Pelvis CT 06/12/24 10:35 IMPRESSION: 1. Moderate distention/dilation of the stomach and proximal small bowel with gradual transition to normal caliber small bowel, which is indeterminate and may be secondary to enteritis such as gastroenteritis or developing/partial small bowel obstruction. Clinical correlation and possible progress radiographs are recommended for continued evaluation. 2. No bowel perforation or ascites. One or more dose reduction techniques were used (e.g., Automated exposure control, adjustment of the mA and/or kV according to patient size, use of iterative reconstruction technique). Reading Location: [facility] Assessment & Plan Assessment/Plan (1) Influenza A: (2) Diabetic ketoacidosis: (3) Atherosclerotic heart disease of [place] coronary artery with other forms of angina pectoris: PLAN: Plan Patient is a 58-year-old gentleman presented with intractable nausea vomiting diagnosed with diabetic ketoacidosis 1. Diabetic ketoacidosis ? Patient has been admitted to the intensive care unit management initiated with aggressive IV fluid resuscitation, IV insulin and correction of electrolyte response to therapy being monitored with every 4 BMPs 2. Acute gastroenteritis ? Plan is to treat symptomatically 3. Recent acute influenza A ? Patient responded to symptom management 4. Coronary artery disease ? With previous STEMI. Patient underwent PCI with JANKI. Patient remains on guideline directed medical therapy 5. Polycythemia ? Secondary to severe dehydration hemoglobin on admission was 21.6 patient started on IV fluids repeat CBC with differential ordered for a.m. 6. Acute kidney injury ? Started on IV fluids with BMP ordered for a.m. 7. Dyslipidemia ?Patient is on statin therapy, continued at home dose 8. Hypertension ? Blood pressure controlled, home medications continued with dose adjustment as needed 9. GERD ? On PPI 10. DVT prophylaxis ? Subcu heparin Time spent in the patient's overall evaluation,decision-making process, review of diagnostic data, adjustment of management, discussion with other providers, nursing nursing and ancillary staff involved in patient's care documentation, 75 minutes Advance planning; did discuss with the patient and family regarding advanced directives as well as CODE STATUS. Did explain the various scenarios involved ( FULL CODE, DNR CCA, DNR CCA with no intubation, and DNR CC and what each meant) patient elected remain full code with CPR intubation if needed. Order was placed. Time spent on discussion 16 minutes. Charges/Coding Multi Select Codes Visit Charges Visit Charges: 36810 Init Hosp L3 Hospitalists' Procedures Procedures: 85632 Advncd Care Plan 30 Min
[2024-06-12 12:19] LABS: Bedside Glucose 222 mg/dL (74-106)
[2024-06-12 13:00] LABS: Bedside Glucose 192 mg/dL (74-106)
[2024-06-12 13:18] LABS: Anion Gap 13 (5-15); BUN 28 mg/dL (4-19); BUN/Creat Ratio 22.9 RATIO (10-20); Calcium,Total 8.9 mg/dL (7.6-11.0); Carbon Dioxide 23.7 mmol/L (21.0-32.0); Chloride 101 mmol/L (98-108); Creatinine, Serum 1.21 mg/dL (0.70-1.20); EST Glomerular Filtration Rate 70 (>60); Estimated Creatinine Clearance 82.39 ml/min (50-250); Glucose 205 mg/dL (70-99); Potassium 3.9 mmol/L (3.3-5.1); Sodium Level 138 mmol/L (133-145)
--- NOTE | 2024-06-12 13:56 | NURSING ---
per housekeeping associate Jimena Admission status should be medsurg, Dr. Bojorquez unable to change order at this time but states medsurg status not icu.
--- NOTE | 2024-06-12 14:42 | ED.RN ---
hold insulin drip per dr mcfadden
[2024-06-12] MEDS: Morphine 4 MG/ML Syringe IV (14:45)
[2024-06-12 14:55] VITALS: BP 142/89; PULSE 84; RESP 16; O2SAT 97
[2024-06-12 15:19] LABS: Bedside Glucose 147 mg/dL (74-106)
[2024-06-12 15:43] VITALS: BP 133/89; PULSE 84; RESP 16; TEMP 36.1; O2SAT 96
[2024-06-12 16:09] VITALS: BMI 29.8
[2024-06-12 16:15] VITALS: PULSE 86; RESP 16; O2SAT 94
[2024-06-12] MEDS: Albuterol 2.5 MG/3 ML VIAL.NEB. INHALATION (16:15)
--- NOTE | 2024-06-12 16:38 | CPS ---
Pt declined Incentive Spirometer but will work on PEP.
[2024-06-12 17:36] LABS: Anion Gap 14 (5-15); BUN 28 mg/dL (4-19); BUN/Creat Ratio 26.3 RATIO (10-20); Calcium,Total 8.7 mg/dL (7.6-11.0); Chloride 103 mmol/L (98-108); Creatinine, Serum 1.08 mg/dL (0.70-1.20); EST Glomerular Filtration Rate 80 (>60); Glucose 158 mg/dL (70-99); Potassium 4.1 mmol/L (3.3-5.1); Sodium Level 137 mmol/L (133-145)
[2024-06-12 17:45] LABS: Hemoglobin A1c 8.8 % (<=5.6)
[2024-06-12 17:54] LABS: AST(SGOT) 32 U/L (<=37); Alanine Aminotransfer ALT/SGPT 74 U/L (<=46); Albumin, Serum 3.9 g/dL (3.5-5.0); Alkaline Phosphatase 64 U/L (40-129); Bilirubin, Direct 0.41 mg/dL (0.00-0.30); Globulin 2.4 g/dL (2.2-4.2); Magnesium 2.2 mg/dL (1.5-2.2); Protein, Total 6.3 g/dL (5.9-8.4)
[2024-06-12] MEDS: Insulin Glargine-YFGN 100 UNIT/ML Pen 20 UNIT SC (19:22)
[2024-06-12] MEDS: Insulin Lispro 100 UNIT/ML INSULN.PEN SC ×2 (19:24→19:25)
[2024-06-12] MEDS: morphine SR 15 MG Tablet PO (20:22)
[2024-06-12] MEDS: Acetaminophen 325 MG Tablet 650 MG PO (20:22)
[2024-06-12] MEDS: Atorvastatin Calcium 80 MG Tablet PO (20:22)
[2024-06-12] MEDS: Pantoprazole Sodium 40 MG in 0.9% Normal Saline (100mL MB+) 100 ML 330 MG IV (20:22)
[2024-06-12 22:24] VITALS: BP 135/74; PULSE 68; RESP 20; TEMP 36.8; O2SAT 96
[2024-06-12] MEDS: DiphenhydrAMINE 25 MG Capsule PO (22:29)
[2024-06-12] MEDS: BENZOCAINE/MENTHOL 1 LOZENGE 2 LOZENGE MUCOUS MEM (22:30)
[2024-06-12] MEDS: 0.9% Normal Saline (1000mL) 1,000 ML 500 ML IV (22:32)
[2024-06-12 22:52] LABS: Bedside Glucose 122 mg/dL (74-106)
[2024-06-12 22:52] LABS: Bedside Glucose 153 mg/dL (74-106)
[2024-06-13 04:44] VITALS: BP 116/67; PULSE 68; RESP 14; TEMP 36.6; O2SAT 96
[2024-06-13 06:00] VITALS: BMI 29.7
[2024-06-13 06:45] LABS: Bedside Glucose 110 mg/dL (74-106)
[2024-06-13 07:21] VITALS: O2SAT 94
--- NOTE | 2024-06-13 07:30 | PCM.PN.HOSP ---
Reason for Visit Reason for Visit: Diagnoses Type 2 diabetes mellitus with ketoacidosis without coma (06/12/24) Atherosclerotic heart disease of [place] coronary artery with other forms of angina pectoris (06/12/24) Influenza due to other identified influenza virus with other respiratory manifestations (06/12/24) Subjective Subjective Patient was admitted with DKA however did resolve prior to patient being admitted to the intensive care unit patient was therefore not started on insulin drip instead admitted to regular nursing floor. Objective Data Objective Data Vital Signs: Vital Signs Temp Pulse Resp BP Pulse Ox O2 Del Method 98 F 68 14 116/67 96 Room Air 06/13/24 04:44 06/13/24 04:44 06/13/24 04:44 06/13/24 04:44 06/13/24 04:44 06/13/24 04:44 Oxygen Delivery Method Room Air Weight: 99.79 kg Body Mass Index (BMI) 29.7 Intake & Output: Intake and Output for Last 24 Hours 06/11/24 06/12/24 06/14/24 23:59 23:59 00:59 Intake Total 3110 / 3310 1200 / 1200 Balance 3110 / 3310 1200 / 1200 Lab / Micro Data 06/13/24 06:42 06/12/24 16:38 Labs: Laboratory Results - last 24 hr 06/12/24 09:20: WBC 11.5 H, RBC 7.15 H, Hgb 21.6 H*, Hct 61.7 H, MCV 86.3, MCH 30.2, MCHC 35.0, RDW Std Deviation 40.7, RDW Coeff of [place] 13.9, Plt Count 173, MPV 10.0, Immature Gran % (Auto) 0.800, Neut % (Auto) 87.6 H, Lymph % (Auto) 3.8 L, [place] % (Auto) 6.3, Eos % (Auto) 0.6, Baso % (Auto) 0.9, Absolute Neuts (auto) 10.1 H, Absolute Lymphs (auto) 0.44 L, Nucleated RBC % 0, Diff Path Review May , Sodium 139, Potassium 4.1, Chloride 100, Carbon Dioxide 20.7 L, Anion Gap 18 H, BUN 31 H, Creatinine 1.36 H, Estim Creat Clear Calc 73.30, Est GFR (MDRD) Non-Af 61, BUN/Creatinine Ratio 22.6 H, Glucose 317 H, Calcium 9.9, Total Bilirubin 1.31 H, AST 48 H, ALT 105 H, Alkaline Phosphatase 82, Total Protein 8.1, Albumin 4.8, Globulin 3.3, Albumin/Globulin Ratio 1.5, Lipase 23 06/12/24 10:00: b-Hydroxybutyric mmol/L 1.0 06/12/24 11:51: POC Glucose 222 H 06/12/24 12:41: POC Glucose 192 H 06/12/24 12:50: Sodium 138, Potassium 3.9, Chloride 101, Carbon Dioxide 23.7, Anion Gap 13, BUN 28 H, Creatinine 1.21 H, Estim Creat Clear Calc 82.39, Est GFR (MDRD) Non-Af 70, BUN/Creatinine Ratio 22.9 H, Glucose 205 H, Calcium 8.9 06/12/24 14:54: POC Glucose 147 H 06/12/24 16:38: Sodium 137, Potassium 4.1, Chloride 103, Carbon Dioxide 20.0 L, Anion Gap 14, BUN 28 H, Creatinine 1.08, Estim Creat Clear Calc 92.30, Est GFR (MDRD) Non-Af 80, BUN/Creatinine Ratio 26.3 H, Glucose 158 H, Hemoglobin A1c 8.8, Calcium 8.7, Magnesium 2.2, Total Bilirubin 0.90, Direct Bilirubin 0.41 H, AST 32, ALT 74 H, Alkaline Phosphatase 64, Total Protein 6.3, Albumin 3.9, Globulin 2.4 06/12/24 19:21: POC Glucose 153 H 06/12/24 22:28: POC Glucose 122 H 06/13/24 06:27: POC Glucose 110 H Micro: Microbiology 06/12/24 09:28 Mucosa - Nose SARS-CoV-2, Influenza & RSV (PCR) - Final Influenzae A ABG Data ABG results: ABG 06/12/24 10:35 Specimen Type CATHI Sample Site Not entered VBG pH 7.32 VBG pO2 24 L VBG HCO3 24 VBG Total CO2 26 VBG O2 Sat (Calc) 37 L VBG Base Excess -2 L POC Mix VBG pCO2 Pt Tmp 46.9 O2 Delivery Device Room Air Radiography Diagnostic Testing: Radiology Impression Abdomen/Pelvis CT 06/12/24 10:35 IMPRESSION: 1. Moderate distention/dilation of the stomach and proximal small bowel with gradual transition to normal caliber small bowel, which is indeterminate and may be secondary to enteritis such as gastroenteritis or developing/partial small bowel obstruction. Clinical correlation and possible progress radiographs are recommended for continued evaluation. 2. No bowel perforation or ascites. One or more dose reduction techniques were used (e.g., Automated exposure control, adjustment of the mA and/or kV according to patient size, use of iterative reconstruction technique). Reading Location: [facility] Physical Exam Narrative GENERAL: cooperative HEENT: Atraumatic; normocephalic EYES; Anicteric, Normal Conjunctiva NECK; supple, normal thyroid, RESPIRATORY: Diminished to auscultation CARDIOVASCULAR: Regular S1 S2, GI: soft, normoactive bowel sounds, : No Renal angle tenderness; EXTREMITIES: No edema, no clubbing, MUSCULOSKELETAL: no muscle wasting NEURO: Awake; no lateralizing signs. SKIN: No Rash PSYCH; Flat affect Assessment & Plan Assessment/Plan (1) Influenza A: (2) Diabetic ketoacidosis: (3) Atherosclerotic heart disease of [place] coronary artery with other forms of angina pectoris: PLAN: Plan Patient is a 58-year-old gentleman presented with intractable nausea vomiting diagnosed with diabetic ketoacidosis 1. Diabetic ketoacidosis ? Patient has been admitted to the intensive care unit management initiated with aggressive IV fluid resuscitation, IV insulin and correction of electrolyte response to therapy being monitored with every 4 BMPs ? 06/13/2024;Patient was admitted with DKA however did resolve prior to patient being admitted to the intensive care unit patient was therefore not started on insulin drip instead admitted to regular nursing floor. 2. Acute gastroenteritis ? Plan is to treat symptomatically 3. Recent acute influenza A ? Patient responded to symptom management 4. Coronary artery disease ? With previous STEMI. Patient underwent PCI with JANKI. Patient remains on guideline directed medical therapy 5. Polycythemia ? Secondary to severe dehydration hemoglobin on admission was 21.6 patient started on IV fluids repeat CBC with differential ordered for a.m. 6. Acute kidney injury ? Started on IV fluids with BMP ordered for a.m. 7. Dyslipidemia ?Patient is on statin therapy, continued at home dose 8. Hypertension ? Blood pressure controlled, home medications continued with dose adjustment as needed 9. GERD ? On PPI 10. DVT prophylaxis ? Subcu heparin Time spent in the patient's overall evaluation,decision-making process, review of diagnostic data, adjustment of management, discussion with other providers, nursing nursing and ancillary staff involved in patient's care documentation, 38 minutes Charges/Coding Visit Charges Inpatient E&M: 17181 Subs Hosp L2
[2024-06-13 08:02] VITALS: BP 120/76; PULSE 68; RESP 18; TEMP 36.4; O2SAT 97
[2024-06-13 08:03] LABS: Absolute Neutrophil Count 4.6 X10^3/uL (2.0-7.7); Basophil# 0.05 X10^3/uL; Basophil% 0.6 % (0-1); Eosinophil# 0.28 X10^3/uL; Eosinophils% 3.6 % (0-5); Hematocrit 49.8 % (40-54); Lymphocyte % 27.3 % (19-41); Mean Corp Hgb Conc 34.1 g/dL (32-36); Mean Corpuscular Hgb 30.2 pg (27.0-32.0); Mean Corpuscular Volume 88.6 fL (80-94); Mean Platelet Vol. 10.6 fl (6.2-12.0); Monocyte# 0.67 X10^3/uL; Monocyte% 8.7 % (0-10); NRBC Flagged by Analyzer 0 % (0-5); Neutrophil # 4.55 X10^3/uL (2.7-7.7); Neutrophil % 59.2 % (47-70); Platelet Count 144 K/mm3 (150-450); RBC Distribution Width CV 13.2 % (11.6-14.6); RBC Distribution Width SD 42.9 fl (35.1-43.9); Red Blood Count 5.62 M/mm3 (4.6-6.2); White Blood Count 7.7 K/mm3 (4.4-11.0)
[2024-06-13] MEDS: Clopidogrel Bisulfate 75 MG Tablet PO (08:15)
[2024-06-13] MEDS: amLODIPine 5 MG Tablet PO (08:15)
[2024-06-13] MEDS: morphine SR 15 MG Tablet PO (08:15)
[2024-06-13] MEDS: Atenolol 25 MG Tablet PO (08:15)
[2024-06-13] MEDS: Acetaminophen 325 MG Tablet 650 MG PO (08:19)
[2024-06-13 09:18] LABS: Magnesium 2.2 mg/dL (1.5-2.2); Phosphorus 2.5 mg/dL (2.7-4.5)
[2024-06-13 09:23] LABS: Hemoglobin A1c 8.8 % (<=5.6)
[2024-06-13 09:41] LABS: Anion Gap 11 (5-15); BUN 24 mg/dL (4-19); Calcium,Total 8.3 mg/dL (7.6-11.0); Carbon Dioxide 22.3 mmol/L (21.0-32.0); Chloride 104 mmol/L (98-108); Creatinine, Serum 1.08 mg/dL (0.70-1.20); EST Glomerular Filtration Rate 80 (>60); Glucose 95 mg/dL (70-99); Potassium 3.7 mmol/L (3.3-5.1); Sodium Level 137 mmol/L (133-145)
--- NOTE | 2024-06-13 09:42 | PCM.DC.SUM ---
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 Diabetic ketoacidosis ? Patient has been admitted to the intensive care unit management initiated with aggressive IV fluid resuscitation, IV insulin and correction of electrolyte response to therapy being monitored with every 4 BMPs ? 06/13/2024;Patient was admitted with DKA however did resolve prior to patient being admitted to the intensive care unit patient was therefore not started on insulin drip instead admitted to regular nursing floor. 2. Acute gastroenteritis ? Plan is to treat symptomatically 3. Recent acute influenza A ? Patient responded to symptom management 4. Coronary artery disease ? With previous STEMI. Patient underwent PCI with JANKI. Patient remains on guideline directed medical therapy 5. Polycythemia ? Secondary to severe dehydration hemoglobin on admission was 21.6 patient started on IV fluids repeat CBC with differential ordered for a.m. 6. Acute kidney injury ? Started on IV fluids with BMP ordered for a.m. 7. Dyslipidemia ?Patient is on statin therapy, continued at home dose 8. Hypertension ? Blood pressure controlled, home medications continued with dose adjustment as needed 9. GERD ? On PPI 10. DVT prophylaxis ? Subcu heparin Time spent in the patient's overall evaluation,decision-making process, review of diagnostic data, adjustment of management, discussion with other providers, nursing nursing and ancillary staff involved in patient's care documentation, 38 minutes Medications at Discharge Home Medications aspirin 81 mg tablet,delayed release 81 mg PO DAILY@0800 11/23/16 coenzyme Q10 100 mg capsule (Co Q-10) 100 mg PO DAILY 10/26/18 arginine (L-arginine) 500 mg capsule 500 mg PO DAILY 02/02/19 cholecalciferol (vitamin D3) 125 mcg (5,000 unit) capsule 5,000 unit PO DAILY 02/02/19 testosterone undecanoate 750 mg/3 mL (250mg/mL) intramuscular solution 750 mg IM Q14D 04/19/21 baclofen 5 mg tablet 5 mg PO TID PRN muscle pain 05/12/23 spironolactone 25 mg tablet 25 mg PO DAILY #30 tabs 08/18/23 atenolol 25 mg tablet 25 mg PO DAILY #90 tabs 09/05/23 clopidogrel 75 mg tablet 75 mg PO DAILY #90 tabs 02/02/24 albuterol sulfate 90 mcg/actuation aerosol inhaler 2 puff inhalation Q6H PRN shortness of breath or wheezing #6.7 grams 06/07/24 doxycycline monohydrate 100 mg capsule 100 mg PO BID 7 days #14 caps 06/07/24 morphine 15 mg tablet,extended release 15 mg PO Q12H 06/07/24 amlodipine 5 mg tablet 5 mg PO DAILY #30 tabs 06/08/24 albuterol sulfate 2.5 mg/3 mL (0.083 %) solution for nebulization 2.5 mg (3 mL) inhalation Q6H PRN shortness of breath or wheezing #45 mL 06/10/24 dulaglutide 1.5 mg/0.5 mL subcutaneous pen injector (Trulicity) 1.5 mg subcut QWEEK 06/12/24 empagliflozin 25 mg tablet (Jardiance) 25 mg PO DAILY 06/12/24 omeprazole 40 mg capsule,delayed release 40 mg PO DAILY 06/12/24 rosuvastatin 40 mg tablet (Crestor) 40 mg PO QHS 06/12/24 Physical Exam Narrative GENERAL: cooperative HEENT: Atraumatic; normocephalic EYES; Anicteric, Normal Conjunctiva NECK; supple, normal thyroid, RESPIRATORY: Diminished to auscultation CARDIOVASCULAR: Regular S1 S2, GI: soft, normoactive bowel sounds, : No Renal angle tenderness; EXTREMITIES: No edema, no clubbing, MUSCULOSKELETAL: no muscle wasting NEURO: Awake; no lateralizing signs. SKIN: No Rash PSYCH; Flat affect Weight / BMI Weight Weight: 99.79 kg Body Mass Index (BMI) 29.7 ABG / Lab / Microbiology Data 06/13/24 06:42 06/13/24 06:42 Laboratory: Laboratory Results - last 24 hr 06/12/24 09:20: WBC 11.5 H, RBC 7.15 H, Hgb 21.6 H*, Hct 61.7 H, MCV 86.3, MCH 30.2, MCHC 35.0, RDW Std Deviation 40.7, RDW Coeff of [place] 13.9, Plt Count 173, MPV 10.0, Immature Gran % (Auto) 0.800, Neut % (Auto) 87.6 H, Lymph % (Auto) 3.8 L, Nelson % (Auto) 6.3, Eos % (Auto) 0.6, Baso % (Auto) 0.9, Absolute Neuts (auto) 10.1 H, Absolute Lymphs (auto) 0.44 L, Nucleated RBC % 0, Diff Path Review August, Sodium 139, Potassium 4.1, Chloride 100, Carbon Dioxide 20.7 L, Anion Gap 18 H, BUN 31 H, Creatinine 1.36 H, Estim Creat Clear Calc 73.30, Est GFR (MDRD) Non-Af 61, BUN/Creatinine Ratio 22.6 H, Glucose 317 H, Calcium 9.9, Total Bilirubin 1.31 H, AST 48 H, ALT 105 H, Alkaline Phosphatase 82, Total Protein 8.1, Albumin 4.8, Globulin 3.3, Albumin/Globulin Ratio 1.5, Lipase 23 06/12/24 10:00: b-Hydroxybutyric mmol/L 1.0 06/12/24 11:51: POC Glucose 222 H 06/12/24 12:41: POC Glucose 192 H 06/12/24 12:50: Sodium 138, Potassium 3.9, Chloride 101, Carbon Dioxide 23.7, Anion Gap 13, BUN 28 H, Creatinine 1.21 H, Estim Creat Clear Calc 82.39, Est GFR (MDRD) Non-Af 70, BUN/Creatinine Ratio 22.9 H, Glucose 205 H, Calcium 8.9 06/12/24 14:54: POC Glucose 147 H 06/12/24 16:38: Sodium 137, Potassium 4.1, Chloride 103, Carbon Dioxide 20.0 L, Anion Gap 14, BUN 28 H, Creatinine 1.08, Estim Creat Clear Calc 92.30, Est GFR (MDRD) Non-Af 80, BUN/Creatinine Ratio 26.3 H, Glucose 158 H, Hemoglobin A1c 8.8, Calcium 8.7, Magnesium 2.2, Total Bilirubin 0.90, Direct Bilirubin 0.41 H, AST 32, ALT 74 H, Alkaline Phosphatase 64, Total Protein 6.3, Albumin 3.9, Globulin 2.4 06/12/24 19:21: POC Glucose 153 H 06/12/24 22:28: POC Glucose 122 H 06/13/24 06:27: POC Glucose 110 H 06/13/24 06:42: WBC 7.7, RBC 5.62, Hgb 17.0 H, Hct 49.8, MCV 88.6, MCH 30.2, MCHC 34.1, RDW Std Deviation 42.9, RDW Coeff of [place] 13.2, Plt Count 144 L, MPV 10.6, Immature Gran % (Auto) 0.600, Neut % (Auto) 59.2, Lymph % (Auto) 27.3, Nelson % (Auto) 8.7, Eos % (Auto) 3.6, Baso % (Auto) 0.6, Absolute Neuts (auto) 4.6, Absolute Lymphs (auto) 2.10, Nucleated RBC % 0, Sodium 137, Potassium 3.7, Chloride 104, Carbon Dioxide 22.3, Anion Gap 11, BUN 24 H, Creatinine 1.08, Estim Creat Clear Calc 92.30, Est GFR (MDRD) Non-Af 80, BUN/Creatinine Ratio 22.0 H, Glucose 95, Hemoglobin A1c 8.8, Calcium 8.3, Phosphorus 2.5 L, Magnesium 2.2 Microbiology: Microbiology 06/12/24 09:28 Mucosa - Nose SARS-CoV-2, Influenza & RSV (PCR) - Final Influenzae A ABG: ABG 06/12/24 10:35 Specimen Type CATHI Sample Site Not entered VBG pH 7.32 VBG pO2 24 L VBG HCO3 24 VBG Total CO2 26 VBG O2 Sat (Calc) 37 L VBG Base Excess -2 L POC Mix VBG pCO2 Pt Tmp 46.9 O2 Delivery Device Room Air Radiography Diagnostic Testing: Radiology Impression Abdomen/Pelvis CT 06/12/24 10:35 IMPRESSION: 1. Moderate distention/dilation of the stomach and proximal small bowel with gradual transition to normal caliber small bowel, which is indeterminate and may be secondary to enteritis such as gastroenteritis or developing/partial small bowel obstruction. Clinical correlation and possible progress radiographs are recommended for continued evaluation. 2. No bowel perforation or ascites. One or more dose reduction techniques were used (e.g., Automated exposure control, adjustment of the mA and/or kV according to patient size, use of iterative reconstruction technique). Reading Location: [facility] D/C Instructions Discharge Diet: No restrictions Discharge Activity: Return to Normal Activity Call your doctor if you observe: Fever of 101 or Higher, Shortness of breath, Fainting spells and Chest pain DC O2, CPAP, BIPAP Needs Home O2 Discharge instructions: No Meaningful Use Info Meaningful Use Meaningful Use Diagnoses (Choose all that apply): None applicable Ischemic Stroke Statin Dosing Therapy Reference: STATIN DOSE THERAPY REFERENCE: * Patients > 75 years receive moderate or high dose statin therapy. * Patients 75 years or YOUNGER should receive HIGH intensity statin dose unless contraindicated. You will be required to document reason for non-treatment if statin daily dose does not meet guidelines. HIGH DOSE STATIN THERAPY DAILY Atorvastatin > than or = to 40 mg Rosuvastatin > than or = to 20 mg Amlodipine + Atorvastatin > than or = to 2.5/40 mg Ezetimibe + Simvastatin 10/80 mg Simvastatin 80mg Discharge Plan Admission Admit Date/Time: 06/12/24 12:04 Attending Provider: Jesu Bojorquez Primary Care Provider: Akua Woodruff Discharge Orders/Prescriptions Prescriptions: Continued coenzyme Q10 [Co Q-10] 100 mg capsule 100 mg PO DAILY arginine (L-arginine) 500 mg capsule 500 mg PO DAILY cholecalciferol (vitamin D3) 5,000 unit capsule 5,000 unit PO DAILY testosterone undecanoate 750 mg/3 mL (250 mg/mL) solution 750 mg IM Q14D Rx Instructions: EVERY OTHER FRIDAY baclofen 5 mg tablet 5 mg PO TID PRN (Reason: muscle pain) spironolactone 25 mg tablet 25 mg PO DAILY Qty: 30 11RF morphine 15 mg tablet extended release 15 mg PO Q12H albuterol sulfate 90 mcg/actuation HFA aerosol inhaler 2 puff inhalation Q6H PRN (Reason: shortness of breath or wheezing) Qty: 6.7 0RF doxycycline monohydrate 100 mg capsule 100 mg PO BID 7 Days Qty: 14 0RF Patient Comments: STARTED 06/07/24 END 06/14/24 albuterol sulfate 2.5 mg /3 mL (0.083 %) solution for nebulization 2.5 mg inhalation Q6H PRN (Reason: shortness of breath or wheezing) Qty: 45 0RF aspirin 81 MG tablet 81 mg PO DAILY@0800 0RF Jardiance 25 mg tablet 25 mg PO DAILY omeprazole 40 mg capsule,delayed release(DR/EC) 40 mg PO DAILY Trulicity 1.5 mg/0.5 mL pen injector 1.5 mg subcut QWEEK Patient Comments: PT HASNT PICKED UP RX YET, SO HASNT PICKED A DAY OF WEEK rosuvastatin [Crestor] 40 mg tablet 40 mg PO QHS atenolol 25 mg tablet 25 mg PO DAILY Qty: 90 3RF clopidogrel 75 mg tablet 75 mg PO DAILY Qty: 90 3RF amlodipine 5 mg tablet 5 mg PO DAILY Qty: 30 11RF Referrals / Follow Up: Akua Woodruff MD [Primary Care Provider] - In 1 Week Disposition Disposition (needs filled in before D/C Order can be placed): Home, Self Care Charges/Coding Visit Charges Inpatient E&M: 92250 Disch Hosp >30min
[2024-06-13] MEDS: Na Biphos/Potassium Phosphate PACKET 1 PACKET PO (10:53)
[2024-06-13] MEDS: Pantoprazole Sodium 40 MG in 0.9% Normal Saline (100mL MB+) 100 ML 330 MG IV (10:54)
[2024-06-13] MEDS: 0.9% Saline Lock 10 ML Syringe IV (11:02)
[2024-06-13] MEDS: Insulin Lispro 100 UNIT/ML INSULN.PEN SC ×2 (11:39)
[2024-06-13 12:05] LABS: Bedside Glucose 213 mg/dL (74-106)
[2024-07-26 15:15] LABS: Pathologist Review Reviewed
== END 2024-06-13 12:38 | disposition home or self-care (01) | DRG 638 ==
LOC: ED 12:08 → MS3 06-13 10:02
PROVIDERS: Admitting Provider Internal Medicine; Emergency Provider Emergency Medicine; PCP Family Medicine; Visit Provider Internal Medicine
DX: E11.10 Type 2 diabetes mellitus with ketoacidosis without coma (principal); N17.9 Acute kidney failure, unspecified; I10 Essential (primary) hypertension; E78.5 Hyperlipidemia, unspecified; K52.9 Noninfective gastroenteritis and colitis, unspecified; J10.1 Influenza due to other identified influenza virus with other respiratory manifestations; I44.7 Left bundle-branch block, unspecified; K21.9 Gastro-esophageal reflux disease without esophagitis; I25.118 Atherosclerotic heart disease of native coronary artery with other forms of angina pectoris; I25.5 Ischemic cardiomyopathy; I25.2 Old myocardial infarction; D75.1 Secondary polycythemia; Z79.82 Long term (current) use of aspirin; Z95.5 Presence of coronary angioplasty implant and graft; G89.29 Other chronic pain; Z87.891 Personal history of nicotine dependence; Z82.49 Family history of ischemic heart disease and other diseases of the circulatory system; Z79.899 Other long term (current) drug therapy; Z79.85 Long-term (current) use of injectable non-insulin antidiabetic drugs; E86.0 Dehydration
CPT/HCPCS: 36415; 74177; 80048; 80053; 80076; 82010; 82803; 82962; 83036; 83690; 83735; 84100; 85025; 87631; 93005; 94640; 94668; 96361; 96365; 96366; 96375; 96376; 99221; 99252; 99284; Q9967; A4216; G0378; G0463; J2405